=== PATIENT | female | born 1935 | race Caucasian/White ===

== ENCOUNTER 2017-07-03 09:25 | Observation (INO) ==
[2017-07-03] MEDS ORDERED: SALINE FLUSH 10ml SYRINGE IVF PRN (09:57)
--- NOTE | 2017-07-03 09:59 | Emergency Department Report ---
General Adult HPI - General Chief complaint: Fall Stated complaint: weakness,falls,dizzness,poss uti, Time Seen by Provider: 07/03/17 09:43 Source: patient, family Mode of arrival: ambulatory Limitations: no limitations - History of Present Illness HPI narrative: 81-year-old female presents to the emergency department with a chief complaint of multiple falls and generalized weakness. There is some question about whether or not the patient may have had some difficulty with her left lower extremity over the past several days. She denies any pain or discomfort. Patient is brought to the emergency department by her son Robb Reynolds who is requesting evaluation and treatment. Patient symptoms began almost 2 weeks ago, and have progressed with the generalized weakness since onset. She was at home when her symptoms began. Patient denies any current complaints. She does not note any exacerbating or remitting factors. Patient denies any numbness, tingling, weakness or sensory changes in her left lower extremity at this time. - Related Data Home Medications Medication Instructions Recorded Confirmed Levothyroxine Tab [Synthroid] 100 mcg PO ACB #0 04/22/13 07/03/17 Meloxicam 7.5 mg PO DAILY #0 08/28/15 07/03/17 Acetaminophen [Acetaminophen Extra 500 mg PO Q4H PRN #0 10/18/15 07/03/17 Strength] Mirabegron [Myrbetriq] 50 mg PO DAILY #0 08/04/16 07/03/17 Sertraline HCl 50 mg PO DAILY #0 08/04/16 07/03/17 Omeprazole 20 mg PO ACB #0 cap 11/25/16 07/03/17 Cefdinir 600 mg PO DAILY 07/03/17 07/03/17 Cranberry Fruit Extract [Cranberry] 200 mg PO DAILY 07/03/17 07/03/17 Cyanocobalamin (Vitamin B-12) 1,000 mcg PO DAILY 07/03/17 07/03/17 [Vitamin B-12] Fexofenadine [Nelly] 180 mg PO DAILY 07/03/17 07/03/17 Meclizine HCl 25 mg PO CHEW BID PRN 07/03/17 07/03/17 Multivit-Min/Iron/Folic/Rrm628 1 each PO DAILY 07/03/17 07/03/17 [Hair, Skin and Nails Tablet] Allergies Allergy/AdvReac Type Severity Reaction Status Date / Time No Known Allergies Allergy Verified 07/03/17 09:52 Review of Systems Constitutional: Reports: weakness (generalized). Denies: fever Eyes: Denies: eye pain, vision change ENT: Denies: ear pain, throat pain Cardiovascular: Denies: chest pain, palpitations Respiratory: Denies: cough, dyspnea Gastrointestinal: Denies: abdominal pain, nausea, vomiting, diarrhea Genitourinary: Denies: urgency, dysuria Musculoskeletal: Denies: back pain, arthralgia Integumentary: Denies: erythema, rash Neurological: Denies: headache, numbness Psychiatric: Denies: anxiety, depression Endocrine: Denies: fatigue, heat or cold intolerance Hematological/Lymphatic: Denies: easy bleeding, easy bruising Allergic/Immunologic: Denies: facial swelling, urticaria PFSH Patient Stated Medical History Peripheral Neuropathy Yes: peripheral neuropathy Cataracts Yes: removed Hx Urinary Tract Infection Yes: multiple, chronic Osteoarthritis Yes Shingles Yes Depression Yes: zoloft Surgical History: Hysterectomy, orthopedic surgery Family History: Reviewed and noncontributory. - Social History Smoking status: Never smoker Substance use type: does not use Alcohol intake frequency: does not drink Physical Exam - Limitations Limitations: no limitations - General General appearance: alert, in no apparent distress - Normal Exams: Head:: Normocephalic without trauma Eyes:: Pupils are PERRLA w/ EOMI, No scleral icterus, irritation, or foreign bodies noted ENMT:: No facial trauma, nasal exudates, pharyngeal erythema, or exudates are noted Dental: No fractured, loose, or missing teeth noted Neck:: Full range of motion, without adenopathy, JVD, bruits or thyromegaly (no midline tenderness or deformity of the cervical spine.) Chest/Respirations:: Clear all lira, with good airflow, and symmetry bilaterally Cardiovascular:: Regular rate and rhythm, without murmur or gallop, Pulses 2+ all extremities, capillary refill, <2 seconds all extremities Abdomen:: Bowel sounds positive, soft, non-tender, non-distended, no hepatosplenomegaly, masses or bruits noted Lymphatic:: No lymphadenopathy, or lymphedema noted Musculoskeletal:: No tenderness, or deformity noted, good range of motion, all extremities Integumentary:: No rashes, hives, or bruising noted, hair and nails, without abnormality Neurological:: Patient is alert, and oriented, cranial nerves, motor/sensory/ cerebellar, exams w/o gross deficits, to observation Psychiatric:: Patient exhibits, appropriate attention, emotion and affect Course Vital Signs Temperature 98.8 F 07/03/17 09:47 Pulse Rate 68 07/03/17 09:47 Respiratory Rate 20 07/03/17 09:47 Blood Pressure 181/77 H 07/03/17 09:47 Pulse Oximetry 98 07/03/17 09:47 Temperature 97.6 F 07/04/17 07:16 Pulse Rate 64 07/04/17 07:16 Respiratory Rate 10 07/04/17 07:16 Blood Pressure 150/71 H 07/04/17 07:16 Pulse Oximetry 96 07/04/17 07:16 Medical Decision Making - [facility] Narrative Medical decision making narrative: Labs/imaging were discussed in detail with the patient and family and questions are answered. Patient is given gentle IV hydration. Patient is given aspirin 324 mg by mouth times one. Patient does not demonstrate any obvious neurologic deficits. Patient's symptoms began several days ago. There is no obvious CVA. She is not a TPA candidate. Patient is admitted to the service of the hospitalist Dr. Owens in improved condition. Patient and family are in agreement with the current plan of management. No further orders from accepting physician who is in agreement with the current plan of management. It is confirmed with the family that the patient is no longer a patient of Dr. Anderson Gloria. - Differential Diagnosis UTI, Metabolic process, dehydration, CHI - Lab Data Result diagrams: 07/03/17 10:32 07/03/17 10:32 Lab Results 07/03/17 07/03/17 07/03/17 Range/Units 10:32 10:32 10:32 WBC 10.2 (4.5-11.0) T/MM3 RBC 4.60 (4.00-5.20) M/MM3 Hgb 14.4 (12-16) GM/DL Hct 41.1 (36-46) % MCV 89.3 (80-100) UM3 MCH 31.3 (26-34) UUG MCHC 35.0 (31-37) GM/DL RDW Std Deviation 39.0 (36.9-50.2) FL Plt Count 381 (130-400) T/MM3 MPV 9.3 L (9.4-12.4) UM3 Immature Gran % (Auto) 0.2 (0.0-0.5) % Neut % (Auto) 78.8 H (33-66) % Lymph % (Auto) 12.9 L (23-45) % [place] % (Auto) 7.2 (0-9.0) % Eos % (Auto) 0.3 (0-4) % Baso % (Auto) 0.6 (0-2) % Neut # 8.1 H (1.8-7.7) T/MM3 Lymph # 1.3 (1-4.8) T/MM3 [place] # 0.7 (0-0.8) T/MM3 Eos # 0.0 (0-0.5) T/MM3 Baso # 0.1 (0-0.2) T/MM3 Abs Immat Gran (auto) 0.02 (0.00-0.03) T/MM3 INR 1.02 (0.99-1.21) APTT 33.9 (24-36) SEC Turbidity < 20 (0-20) Sodium 131 L (134-144) MEQ/L Potassium 4.5 (3.6-5) MEQ/L Chloride 93 L (98-107) MEQ/L Carbon Dioxide 26 (22-30) MEQ/L Anion Gap 12 (5-15) MEQ/L BUN 11.0 (7-17) MG/DL Creatinine 0.9 (0.7-1.2) MG/DL GFR Calculation 60 BUN/Creatinine Ratio 12 (6-26) RATIO Glucose 91 (65-110) MG/DL Calculated Osmolality 252 L (261-280) MOSM/KG Calcium 9.4 (8.4-10.2) MG/DL Total Bilirubin 0.70 (0.20-1.30) MG/DL Icterus Index < 2 (0-7) AST 30 (14-36) U/L ALT 33 (9-52) U/L Alkaline Phosphatase 83 (38-126) U/L Troponin I < 0.012 (0-0.12) ng/ml Total Protein 7.5 (6.3-8.2) G/DL Albumin 4.4 (3.5-5.0) G/DL Globulin 3.1 (2.4-3.6) G/DL Albumin/Globulin Ratio 1.4 (1.1-2.2) RATIO Specimen Hemolysis < 15 (0-25) Ur Collection Type Urine Color (YELLOW) Urine Clarity Urine pH (5.0-8.0) Ur Specific [place] (1.015-1.025) Urine Protein (NEGATIVE) Urine Glucose (UA) (NEGATIVE) Urine Ketones (NEGATIVE) Urine Occult Blood (NEGATIVE) Urine Nitrate (NEGATIVE) Urine Bilirubin (NEGATIVE) Urine Urobilinogen (NORMAL) EU/DL Ur Leukocyte Esterase (NEGATIVE) Urinalysis Comment 07/03/17 Range/Units 12:27 WBC (4.5-11.0) T/MM3 RBC (4.00-5.20) M/MM3 Hgb (12-16) GM/DL Hct (36-46) % MCV (80-100) UM3 MCH (26-34) UUG MCHC (31-37) GM/DL RDW Std Deviation (36.9-50.2) FL Plt Count (130-400) T/MM3 MPV (9.4-12.4) UM3 Immature Gran % (Auto) (0.0-0.5) % Neut % (Auto) (33-66) % Lymph % (Auto) (23-45) % [place] % (Auto) (0-9.0) % Eos % (Auto) (0-4) % Baso % (Auto) (0-2) % Neut # (1.8-7.7) T/MM3 Lymph # (1-4.8) T/MM3 [place] # (0-0.8) T/MM3 Eos # (0-0.5) T/MM3 Baso # (0-0.2) T/MM3 Abs Immat Gran (auto) (0.00-0.03) T/MM3 INR (0.99-1.21) APTT (24-36) SEC Turbidity (0-20) Sodium (134-144) MEQ/L Potassium (3.6-5) MEQ/L Chloride (98-107) MEQ/L Carbon Dioxide (22-30) MEQ/L Anion Gap (5-15) MEQ/L BUN (7-17) MG/DL Creatinine (0.7-1.2) MG/DL GFR Calculation BUN/Creatinine Ratio (6-26) RATIO Glucose (65-110) MG/DL Calculated Osmolality (261-280) MOSM/KG Calcium (8.4-10.2) MG/DL Total Bilirubin (0.20-1.30) MG/DL Icterus Index (0-7) AST (14-36) U/L ALT (9-52) U/L Alkaline Phosphatase (38-126) U/L Troponin I (0-0.12) ng/ml Total Protein (6.3-8.2) G/DL Albumin (3.5-5.0) G/DL Globulin (2.4-3.6) G/DL Albumin/Globulin Ratio (1.1-2.2) RATIO Specimen Hemolysis (0-25) Ur Collection Type Urine, catheter Urine Color Yellow (YELLOW) Urine Clarity Clear Urine pH 6.0 (5.0-8.0) Ur Specific [place] <=1.005 L (1.015-1.025) Urine Protein Negative (NEGATIVE) Urine Glucose (UA) Negative (NEGATIVE) Urine Ketones Negative (NEGATIVE) Urine Occult Blood Negative (NEGATIVE) Urine Nitrate Negative (NEGATIVE) Urine Bilirubin Negative (NEGATIVE) Urine Urobilinogen 0.2 (NORMAL) EU/DL Ur Leukocyte Esterase Negative (NEGATIVE) Urinalysis Comment Microscopic not ind. - Radiology Data Chest x-ray: No acute processes. CT head/cervical spine: No acute processes other than potential acute on chronic sinus disease. - EKG Data EKG #1 EKG results narrative: Sinus rhythm. 66 bpm. No STEMI. Disposition Clinical Impression: WEAKNESS Disposition: 02 To [facility] Condition: Improved Time of Disposition: 12:20 (Admit: Dr. Owens.) - Seen By: physician
--- NOTE | 2017-07-03 10:32 | XRay Report ---
Indication: cough Procedure: XR chest 1V: Encounter: Initial Comparison: 08/04/2016 Technique: A single portable AP chest radiograph was obtained. Findings: Lungs and airways: Normal lung volumes. No focal airspace consolidation. Normal pulmonary vasculature. Pleura: No pleural effusion or pneumothorax. Heart and mediastinum: Aortic atherosclerosis. The cardiomediastinal silhouette and great vessels are otherwise within normal limits. Osseous structures and soft tissues: No acute osseous abnormality is seen. Degenerative arthrosis of the shoulders. Impression: No acute cardiopulmonary process. .
--- NOTE | 2017-07-03 10:34 | CT Scan Report ---
EXAM: CT head/brain wo con DATE: 07/03/2017 12:00 AM ENCOUNTER: Initial INDICATION: fall / dizzy COMPARISON: None available. TECHNIQUE: CT imaging of the head was obtained without intravenous contrast. Axial reformatted images were performed. The current CT scan was performed using radiation dose-reduction techniques. FINDINGS: Ill defined hypoattenuations within the periventricular deep white matter, a nonspecific finding, however most suggestive of chronic small vessel ischemic disease. The graves-white matter junction is otherwise normal. No intra or extra-axial mass or hemorrhage is identified. There is no midline shift. Symmetric prominence of the ventricles and cerebral sulci consistent with age appropriate cerebral volume loss. The ventricles are otherwise normal in shape and morphology. The basilar cisterns are patent. No acute osseous or soft tissue abnormality. Partially visualized right maxillary sinus disease with air-fluid level and a chronic inspissated mucous retention cyst. The visualized paranasal sinuses are normal. The visualized portions of the orbits and globes are normal. The mastoid air cells are clear. IMPRESSION: 1. No acute intracranial process identified by CT. 2. Age appropriate cerebral volume loss and mild chronic small vessel ischemic disease. 3. Partially visualized right maxillary sinus disease with air-fluid level and a chronic inspissated mucous retention cyst raising consideration for acute on chronic sinusitis. .
--- NOTE | 2017-07-03 10:36 | CT Scan Report ---
Indication: Pain Procedure: CT cervical spine wo con: Encounter: Initial Technique: CT imaging of the cervical spine was obtained without intravenous contrast. Axial, coronal, and sagittal reformatted images were performed. Automated Exposure Control and Iterative Reconstruction dose reducing techniques were utilized. Comparison: None Findings: No acute fracture. The normal cervical lordosis is maintained. No significant spondylolisthesis. No suspicious osteolytic or osteoblastic lesions. Multilevel degenerative disc disease, facet arthropathy, and uncovertebral hypertrophy resulting in mild multilevel neural foraminal narrowing without significant spinal canal stenosis appreciated by CT. No prevertebral soft tissue thickening. No other acute paravertebral soft tissue abnormality. Carotid atherosclerotic calcifications noted. The visualized airway appears widely patent. The visualized lung apices are clear. The visualized intracranial structures appear normal. Impression: 1. No acute fracture or malalignment of the cervical spine. 2. Multiple level degenerative spondylosis resulting in mild multilevel neural foraminal narrowing without significant spinal canal stenosis appreciated by CT. .
[2017-07-03] MEDS ORDERED: NS 1,000 ML IV ONE (12:44)
[2017-07-03] MEDS ORDERED: ASPIRIN 81 MG CHEWABLE TABLET PO ONE (13:04)
--- NOTE | 2017-07-03 14:05 | History & Physical Report ---
<Dayana Palomo V - Last Filed: 07/03/17 13:39> History of Present Illness Date: 07/03/17 Chief complaint: weakness, falls, UTI HPI: Mrs Reynolds is a pleasant 81-year-old female brought to the emergency room today for evaluation of weakness, recent falls, and overall decline. She has had several episodes of falling. The 1st being on June 20. Then on June 29. She lost her balance while trying to feed her dog and fell. Family noted having some left foot drop that is worse from her baseline. Other evaluation in the emergency room was completed. WBC count was normal at 10.2, hemoglobin 14.4, hematocrit 41.1, platelet count 381. Sodium is slightly low at 131, potassium 4.5, BUN 11, creatinine 0.9, glucose 91. Troponin is negative. Urinalysis is negative. The pressure was noted to be elevated on arrival to the emergency room at 181/ 77. Is it reported that she was diagnosed with urinary tract infection and was started on cefdinir on 06/[address] Box. She did miss several doses that she got confused regarding her pill boxes. She did resume Cefdinir over the last 3 days. She is seen today on initial examination. She is alert, oriented and pleasant. No noted motor or neurologic deficits on examination. She reports of having ongoing dizziness and has been taking meclizine for symptoms. Review of Systems Comprehensive ROS: completed and no additional positive findings except those as stated - Constitutional Constitutional: Present: fatigue, weakness - Neurological Neurological: Present: dizziness, weakness (generalized) PFSH Osteoarthritis Chronic back pain Hypothyroidism Hypercholesterolemia History of anemia Surgical History: Hysterectomy. Total knee arthroplasty. Left hip hemiarthplasty-07/2016. Dr. Ruano Family History: Noncontributory - Social History Smoking status: Current every day smoker Substance use type: does not use Alcohol intake frequency: does not drink Housing: house Current occupational status: retired Current residence: Apartment/Private Home Social history: PCP Dr Box Medications Home Medications Medication Instructions Recorded Confirmed Type Levothyroxine Tab [Synthroid] 100 mcg PO ACB #0 04/22/13 07/03/17 History Meloxicam 7.5 mg PO DAILY #0 08/28/15 07/03/17 History Acetaminophen [Acetaminophen Extra 500 mg PO Q4H PRN #0 10/18/15 07/03/17 History Strength] Mirabegron [Myrbetriq] 50 mg PO DAILY #0 08/04/16 07/03/17 History Sertraline HCl 50 mg PO DAILY #0 08/04/16 07/03/17 History Omeprazole 20 mg PO ACB #0 cap 11/25/16 07/03/17 History Cefdinir 600 mg PO DAILY 07/03/17 07/03/17 History Cranberry Fruit Extract [Cranberry] 200 mg PO DAILY 07/03/17 07/03/17 History Cyanocobalamin (Vitamin B-12) 1,000 mcg PO DAILY 07/03/17 07/03/17 History [Vitamin B-12] Fexofenadine [Nelly] 180 mg PO DAILY 07/03/17 07/03/17 History Meclizine HCl 25 mg PO CHEW BID PRN 07/03/17 07/03/17 History Multivit-Min/Iron/Folic/Vfa681 1 each PO DAILY 07/03/17 07/03/17 History [Hair, Skin and Nails Tablet] Allergies Allergy/AdvReac Type Severity Reaction Status Date / Time No Known Allergies Allergy Verified 07/03/17 09:52 Exam Vital Signs: Temperature 98.8 F 07/03/17 09:47 Pulse Rate 68 07/03/17 09:47 Respiratory Rate 20 07/03/17 09:47 Blood Pressure 181/77 H 07/03/17 09:47 Pulse Oximetry 98 07/03/17 09:47 - Constitutional Present: no acute distress, well nourished, well developed - Routine HEENT Exam Eye: Present: EOMI, PERRL ENT: Present: mucous membranes moist, dentition normal - Routine Neck Exam Present: full ROM - Routine Respiratory Exam Present: CTA bilaterally. Absent: wheezes - Routine Cardiovascular Exam Present: RRR, S1, S2, no murmur. Absent: murmur - Routine Abdominal Exam Present: soft, normoactive bowel sounds, non distended. Absent: tenderness - Routine Extremities Exam Present: no edema, full ROM, pulses intact, normal capillary refill - Routine Back/Spine/Pelvis Exam Back/Spine: Present: full ROM - Routine Skin Exam Present: intact, dry, warm - Routine Neurological Exam Present: alert, oriented X3, CN II-XII intact, moving all extremities, vision grossly intact, hearing grossly intact, normal speech. Absent: facial asymmetry - Routine Psychiatric Exam Present: normal affect Results - Labs CBC & Chem 7: 07/03/17 10:32 07/03/17 10:32 Assessment and Plan (1) Weakness Current visit: Yes Status: Acute (2) History of recent fall Current visit: Yes Status: Acute Resuscitation Status: Do Not Resuscitate Assessment and Plan: Impression General weakness Multiple falls Hyponatremia-present on admission, 131 Current treatment for urinary tract infection Hypothyroidism Osteoarthritis Plan Admit patient to outpatient observation under care of Dr. Owens for generalized weakness, dizziness with recent falls. Patient has been under the outpatient treatment for urinary tract infection. Urinalysis is negative today. However, she continues on cefdinir. CT head performed today reveals no intracranial abnormality or hemorrhage. There was some questionable sinusitis. CT cervical spine shows multiple level of degenerative spinal canal stenosis. Will obtain MRI of head and C-spine. Possible consultation with Dr Hairston given worsening left foot drop Normal saline at 100 ML per hour for ongoing hydration given hyponatremia Consultation placed to PT and OT for evaluation. Spoke with patient and son, patient may require more assistance following hospitalization, i.e. rehabilitation versus skilled prior to returning home independently Recheck CBC and BMP tomorrow morning to follow blood counts, renal function and electrolytes. Will discuss further orders and plan of care with attending, Dr. Owens. At time of discharge medical care will return to her primary care provider, Dr. Box Patient does verbalize her wish to be a do not resuscitate and this order is written Hospital Course Summary Disclaimer: The visit summary below is not to be considered part of the above Progress Note. Hospital Course: 07/03/17 - Impression General weakness Multiple falls Hyponatremia-present on admission, 131 Current treatment for urinary tract infection Hypothyroidism Osteoarthritis Plan Admit patient to outpatient observation under care of Dr. Owens for generalized weakness, dizziness with recent falls. Patient has been under the outpatient treatment for urinary tract infection. Urinalysis is negative today. However, she continues on cefdinir. CT head performed today reveals no intracranial abnormality or hemorrhage. There was some questionable sinusitis. CT cervical spine shows multiple level of degenerative spinal canal stenosis. Will obtain MRI of head and C-spine. Possible consultation with Dr Hairston given worsening left foot drop Normal saline at 100 ML per hour for ongoing hydration given hyponatremia Consultation placed to PT and OT for evaluation. Spoke with patient and son, patient may require more assistance following hospitalization, i.e. rehabilitation versus skilled prior to returning home independently Recheck CBC and BMP tomorrow morning to follow blood counts, renal function and electrolytes. Will discuss further orders and plan of care with attending, Dr. Owens. At time of discharge medical care will return to her primary care provider, Dr. Box Patient does verbalize her wish to be a do not resuscitate and this order is written <Janes Owens - Last Filed: 07/03/17 17:41> History of Present Illness Date: 07/03/17 [facility] Patient Stated Medical History Peripheral Neuropathy Yes: peripheral neuropathy Cataracts Yes: removed Hx Urinary Tract Infection Yes: multiple, chronic Osteoarthritis Yes Shingles Yes Depression Yes: zoloft Exam Vital Signs: Temperature 98.0 F 07/03/17 15:54 Pulse Rate 67 07/03/17 16:00 Respiratory Rate 18 07/03/17 15:54 Blood Pressure 140/66 H 07/03/17 15:54 Pulse Oximetry 97 07/03/17 15:54 Height/Weight/BMI: Height 5 ft 8 in Weight 60.8 kg Body Mass Index 20.3 Results - Labs CBC & Chem 7: 07/03/17 10:32 07/03/17 10:32 Assessment and Plan (1) Weakness Current visit: Yes Status: Acute (2) History of recent fall Current visit: Yes Status: Acute DVT Prophylaxis: SCD's GI Prophylaxis: other Assessment and Plan: Above pt was seen and examined in the ED with Dayana. Pt is a 81YO female who was brought due to a recent falls. CT brain ".......................... IMPRESSION: 1. No acute intracranial process identified by CT. 2. Age appropriate cerebral volume loss and mild chronic small vessel ischemic disease. 3. Partially visualized right maxillary sinus disease with air-fluid level and a chronic inspissated mucous retention cyst raising consideration for acute on chronic sinusitis. ................................" Pt had mild hyponatremia. On PE NC/AT Pt is very thin Chest - RRR - fair air entry bilaterally Abd - Soft NT/ND Ext - no edema. Neuro - Grossly non focal. Labs Na a bit low - pt has been on a SSRI. DIAGNOSIS 1) Generalized weakness, with recent multiple falls. Pt also describes what could be a component of BPPV. If pt has no orthostasis, and once Na is corrected symptoms continue (and there is no arrhythmia) will consult PT for otolith repositioning maneuver. - Hyponatremia-present on admission, 131 - Hyponatremia increases the risk of falls and fractures even if mild - must try to correct. - Check W/U for low Na - (TSH, Cortisol, Urine and plasma Osm, Uric acid - CXR) - May benefit from Stopping SSRI - since these are known to cause hyponatremia. - Will hydrate with NS first. 2) Hypovolemic hyponatremia. Once volemia is restored may consider fluid restriction if low Na persists. - Hydrate with NS - Check EKG. ' 3) Hypetension, currently pure systolic, will check for orthostasis and if persistent start treatment. - EKG does not suggest LVH - SBP is high, but HCTZ can not be used, since it causes low Na. - May consider Norvasc if SBP continues to be high AND pt has no orthostasis. 4) Recent UTI, overactive bladder or Mirabegron. - Pt on Cefdinir will continue. - UA shows no evidence of UTI. - Reduce dose of Mirabegron to 25mg/day as this may cause HTN. PREVENTION DVT - SCD PUD - PPI. - Time spent with patient 25 - 35 minutes Hospital Course Summary Disclaimer: The visit summary below is not to be considered part of the above Progress Note.
[2017-07-03 14:17] VITALS: BMI 20.3
[2017-07-03] MEDS ORDERED: ACETAMINOPHEN 500 MG TABLET PO PRN (14:18)
[2017-07-03] MEDS: NS 1,000 ML IV SCH (14:31)
--- NOTE | 2017-07-03 16:57 | Magnetic Resonance Report ---
Indication: Worsening left foot drop with history of falls, evaluate for CVA PROCEDURE: MR head/brain wo con: Encounter: Initial Comparisons: Head CT of the same day Technique: Multiplanar, multisequence, MR imaging of the head without contrast was acquired. FINDINGS: No restricted diffusion is seen to suggest recent ischemic infarction. T2/FLAIR hyperintensities within the deep white matter, a nonspecific finding, however most commonly related to chronic small vessel ischemic disease. The normal graves-white matter differentiation is maintained. No intra-axial or extra-axial mass or hemorrhage seen. No mass effect or midline shift. No abnormal postcontrast enhancement. Symmetric prominence of the ventricles and cerebral sulci most consistent with age-related generalized cerebral volume loss. The ventricles are otherwise normal in shape and configuration without evidence of hydrocephalus. The basilar cisterns are patent. Normal flow void seen within the intracranial arterial and venous structures indicating patency. Redemonstration of right maxillary sinus disease. The remaining paranasal sinuses and mastoid air cells are well-aerated. The orbits and globes appear normal. IMPRESSION: 1. No evidence of recent ischemic infarction or other acute abnormalities of the brain by MRI. 2. Age-related generalized cerebral volume loss and chronic small vessel ischemic disease. 3. Redemonstration of right maxillary sinus disease. .
[2017-07-04] MEDS: NS 1,000 ML IV SCH ×2 (05:42→15:23)
[2017-07-04] MEDS: **POM**LEVOTHYROXINE 100 MCG TABLET PO SCH (06:31)
[2017-07-04] MEDS: OMEPRAZOLE 20 MG PO SCH (06:32)
[2017-07-04] MEDS ORDERED: MIRABEGRON 50 MG PO SCH (09:00)
[2017-07-04] MEDS ORDERED: CEFDINIR 300 MG PO SCH (09:00)
[2017-07-04] MEDS: MELOXICAM 7.5 MG PO SCH (10:05)
[2017-07-04] MEDS: FEXOFENADINE 180 MG PO SCH (10:06)
[2017-07-04] MEDS: CEFDINIR 300 MG CAPSULE PO SCH (10:09)
[2017-07-04] MEDS: MIRABEGRON 25mg TABLET PO SCH (10:09)
[2017-07-04] MEDS: SERTRALINE 50 MG PO SCH (10:10)
[2017-07-04] MEDS: MINERAL PO SCH (10:11)
[2017-07-04] MEDS: HAIR PO SCH (10:11)
[2017-07-04] MEDS: MULTIVITAMIN PO SCH (10:11)
[2017-07-04] MEDS: SKIN PO SCH (10:11)
[2017-07-04] MEDS: [UNRECOGNIZED DRUG - OTHER] PO SCH (10:11)
--- NOTE | 2017-07-04 11:33 | Progress Note ---
Subjective: States she is feeling better and stronger today, in good spirits. Objective Vital signs: Temperature 97.6 F 07/04/17 07:16 Pulse Rate 64 07/04/17 07:16 Respiratory Rate 10 07/04/17 07:16 Blood Pressure 150/71 H 07/04/17 07:16 Pulse Oximetry 96 07/04/17 07:16 Rhythm: Normal Sinus Rhythm Height/Weight/BMI: Height 5 ft 8 in Weight 91.5 kg Body Mass Index 20.3 - Constitutional Present: no acute distress, well nourished - Routine HEENT Exam Head: Present: normocephalic, atraumatic Eye: Present: EOMI, PERRL - Routine Respiratory Exam Present: CTA bilaterally - Routine Cardiovascular Exam Present: RRR, S1, S2 - Routine Abdominal Exam Present: soft, non distended, non tender - Routine Extremities Exam Absent: cyanosis, clubbing, edema - Routine Skin Exam Comments: Purpura seniils of the forearms. - Routine Neurological Exam Present: alert, oriented X3, CN II-XII intact - Routine Psychiatric Exam Present: normal affect, cooperative, good insight, good judgment Results - Labs CBC & Chem 7: 07/04/17 11:22 07/04/17 10:00 Assessment and Plan (1) Weakness Current visit: Yes Status: Resolved (2) History of recent fall Current visit: Yes Status: Acute DVT Prophylaxis: SCD's GI Prophylaxis: other Resuscitation Status: Do Not Resuscitate Assessment and Plan: This is a 81 YO female that comes with recent falls and was found to have low Na on admission. This corrected rapidly with IVF and did not require fluid restriction. DIAGNOSIS 1) Generalized weakness, with recent multiple falls. Pt also describes what could be a component of BPPV. She is improved. Awaiting neurology evaluation. - Hyponatremia-present on admission, 131 - Corrected on 07/04 (Na = 140) - Check W/U for low Na - (TSH, Cortisol, Urine and plasma Osm, Uric acid) PENDING. 2) Hypovolemic hyponatremia. Once volemia is restored may consider fluid restriction if low Na persists. - Improved. 3) Hypetension, currently pure systolic. - EKG does not suggest LVH - SBP is high, but HCTZ can not be used, since it causes low Na. - May consider Norvasc if SBP continues to be high AND pt has no orthostasis. - If SBP remains in the AM - will consider adding norvasc. 4) Recent UTI, overactive bladder or Mirabegron. - Pt on Cefdinir will continue. - UA shows no evidence of UTI. - Reduced dose of Mirabegron to 25mg/day as this may cause HTN. 5) H.O Lumbar stenosis - - Will recheck MRI lumbar spine. PREVENTION DVT - SCD PUD - PPI. Sepsis Assessment - Evaluation Sepsis screening result: No Definite Risk Hospital Course Summary Disclaimer: The visit summary below is not to be considered part of the above Progress Note. Hospital Course: 07/03/17 - Impression General weakness Multiple falls Hyponatremia-present on admission, 131 Current treatment for urinary tract infection Hypothyroidism Osteoarthritis Plan Admit patient to outpatient observation under care of Dr. Owens for generalized weakness, dizziness with recent falls. Patient has been under the outpatient treatment for urinary tract infection. Urinalysis is negative today. However, she continues on cefdinir. CT head performed today reveals no intracranial abnormality or hemorrhage. There was some questionable sinusitis. CT cervical spine shows multiple level of degenerative spinal canal stenosis. Will obtain MRI of head and C-spine. Possible consultation with Dr Hairston given worsening left foot drop Normal saline at 100 ML per hour for ongoing hydration given hyponatremia Consultation placed to PT and OT for evaluation. Spoke with patient and son, patient may require more assistance following hospitalization, i.e. rehabilitation versus skilled prior to returning home independently Recheck CBC and BMP tomorrow morning to follow blood counts, renal function and electrolytes. Will discuss further orders and plan of care with attending, Dr. Owens. At time of discharge medical care will return to her primary care provider, Dr. Box Patient does verbalize her wish to be a do not resuscitate and this order is written
--- NOTE | 2017-07-04 11:42 | Magnetic Resonance Report ---
Indication: weakness, falls, spinal stenosis PROCEDURE: MR cervical spine wo con: Encounter: Initial Comparison: CT cervical spine dated July 03, 2017 Technique: Multiplanar multisequence MR imaging of the cervical spine was performed without contrast. Findings: Alignment of the cervical spine is stable from the recent comparison study. There is mild inferior endplate deformity at C7 without acute edema suggesting an old Schmorl's node or mild compression fracture. No acute edema or acute fracture appreciated. The cervical and visualized upper thoracic spinal cord signal intensity is normal. The paraspinal soft tissues are unremarkable. Segmental analysis: C2-C3: Normal C3-C4: Small central disk osteophyte complex slightly effacing the thecal sac with mild central canal narrowing. Degenerative uncovertebral and facet changes causing mild bilateral foraminal stenosis. C5-C6: Small central disk protrusion slightly effacing the thecal sac without central canal stenosis. No neural foraminal stenosis. C6-C7: No significant disk herniation, central canal or neural foraminal stenosis. C7-T1: No focal disk herniation or central canal stenosis. Degenerative uncovertebral change without foraminal stenosis. Impression: No central canal stenosis. Mild foraminal narrowing at C3-C4. .
--- NOTE | 2017-07-04 13:04 | Magnetic Resonance Report ---
Indication: lumbar stenosis left foot drop PROCEDURE: MR lumbar spine wo con: Encounter: Initial Comparison: Radiograph dated May 16, 2016 and MRI lumbar spine dated January 13, 2014 Technique: Multiplanar multisequence MR imaging of the lumbar spine was performed without contrast. Findings: Alignment of the lumbar spine is stable. Old superior endplate deformity of L1 and inferior endplate deformity of L2. Multiple Schmorl's nodes. Degenerative endplate change at L4-L5. Conus medullaris terminates normally at L1. Chronic mild superior endplate deformity of T11. New edema within the S3 segment with a T1 hypointense fracture line best seen on sagittal image #11. No additional acute fracture seen. The paraspinal soft tissues are unremarkable for age. Segmental analysis: L1-L2: Mild disk bulging and degenerative facet change contributing to mild central canal stenosis. Mild left foraminal narrowing. No significant right foraminal stenosis. L2-L3: Central disk protrusion with degenerative facet disease causing moderate central canal stenosis. Mild left foraminal narrowing. No right foraminal stenosis. L3-L4: Disk osteophyte complex with degenerative facet disease causing mild central canal stenosis. Moderate right neural foraminal stenosis. No left foraminal narrowing. L4-L5: Disk height loss with a small bulge and degenerative facet disease causing mild central canal stenosis. Moderate right and mild left neural foraminal stenosis. L5-S1: Degenerative facet hypertrophy. No focal disk herniation or central canal stenosis. Mild right and moderate left neural foraminal stenosis. Overall the degenerative changes are very similar to the comparison study. Impression: 1. Acute nondisplaced fracture of S3. 2. Otherwise stable degenerative disk and facet disease as detailed above. .
[2017-07-04] MEDS: POLYETHYL GLYCOL 3350 17gm PACKET PO PRN (22:44)
[2017-07-05] MEDS: NS 1,000 ML IV SCH ×2 (02:30→13:07)
[2017-07-05] MEDS: OMEPRAZOLE 20 MG PO SCH (06:46)
[2017-07-05] MEDS: **POM**LEVOTHYROXINE 100 MCG TABLET PO SCH (06:46)
[2017-07-05 07:24] VITALS: TEMP 97.5
[2017-07-05] MEDS: MELOXICAM 7.5 MG PO SCH (09:00)
[2017-07-05] MEDS: FEXOFENADINE 180 MG PO SCH (09:00)
[2017-07-05] MEDS: CEFDINIR 300 MG CAPSULE PO SCH (09:01)
[2017-07-05] MEDS: MIRABEGRON 25mg TABLET PO SCH (09:01)
[2017-07-05] MEDS: [UNRECOGNIZED DRUG - OTHER] PO SCH (09:01)
[2017-07-05] MEDS: HAIR PO SCH (09:01)
[2017-07-05] MEDS: MINERAL PO SCH (09:01)
[2017-07-05] MEDS: SKIN PO SCH (09:01)
[2017-07-05] MEDS: MULTIVITAMIN PO SCH (09:01)
[2017-07-05] MEDS: SERTRALINE 50 MG PO SCH (09:01)
[2017-07-05] MEDS ORDERED: MECLIZINE 25 MG TABLET PO PRN ×2 (09:11)
[2017-07-05] MEDS: POLYETHYL GLYCOL 3350 17gm PACKET PO PRN (09:16)
[2017-07-05] MEDS ORDERED: MECLIZINE 12.5 MG TABLET PO PRN (11:01)
[2017-07-05] MEDS ORDERED: SALINE FLUSH 10ml SYRINGE ONE (11:07)
--- NOTE | 2017-07-05 11:18 | Progress Note ---
Subjective: Pt reports persistent dizzy spells specially when she moves her head. Otherwise is doing fairly well. Objective Vital signs: Temperature 97.5 F 07/05/17 07:22 Pulse Rate 61 07/05/17 07:22 Respiratory Rate 12 07/05/17 07:22 Blood Pressure 156/70 H 07/05/17 07:22 Pulse Oximetry 97 07/05/17 07:22 Rhythm: Normal Sinus Rhythm Height/Weight/BMI: Height 5 ft 8 in Weight 64.2 kg Body Mass Index 20.3 - Constitutional Present: no acute distress, thin - Routine HEENT Exam Head: Present: normocephalic, atraumatic Eye: Present: EOMI, PERRL - Routine Respiratory Exam Present: CTA bilaterally - Routine Cardiovascular Exam Present: RRR - Routine Abdominal Exam Present: soft, non distended, non tender - Routine Extremities Exam Absent: cyanosis, clubbing, edema - Routine Neurological Exam Present: alert, oriented X3, CN II-XII intact - Routine Psychiatric Exam Present: normal affect, cooperative, good insight, good judgment Results - Labs CBC & Chem 7: 07/05/17 09:16 07/05/17 09:16 Assessment and Plan (1) Weakness Current visit: Yes Status: Resolved (2) History of recent fall Current visit: Yes Status: Acute (3) Vertebral fracture Current visit: Yes Status: Acute (4) Vertebral fracture Current visit: Yes Status: Acute 07/05/17 11:17 S6 acute fracture per MRI report. DVT Prophylaxis: SCD's GI Prophylaxis: other Resuscitation Status: Do Not Resuscitate Assessment and Plan: This is a 81 YO female that comes with recent falls and was found to have low Na on admission. This corrected rapidly with IVF and did not require fluid restriction. She had a MRI of her Lumbar spine that showed a NEW S6 compression fracture. A Bone scan has been ordered. DIAGNOSIS 1) S6 ACUTE FRACTURE - WITH A RECENT FALL & GENERALIZED WEAKNESS. Pt also describes what could be a component of BPPV. She is improved. Pt was seen by Neurologist (Dr Hairston - staff neurologist) - who recommended adjusting her Meclizine and for her to go to rehab. - Check a Bone scan to R/O metastatic disease and other acute fractures. - Per neurology recommendation pt could be going to IRU or rehab soon. - Will change Meclizine to 12.5 mg PO Q6H 2) Hypovolemic hyponatremia. resolved. - Hyponatremia-present on admission, 131 - Corrected on 07/04 (Na = 140), without taking her off her SSRI. - AM cortisol normal - TSH normal 3) Hypertension, currently pure systolic. - EKG does not suggest LVH - May consider Norvasc if SBP continues to be high AND pt has no orthostasis ( This can be done as outpatient - ideally after a 24 hr monitoring of her BP). 4) Recent UTI, overactive bladder or Mirabegron. - Pt on Cefdinir, today is the last day. - Reduced dose of Mirabegron to 25mg/day as this may cause HTN. Disposition - pt may go to rehab soon. PREVENTION DVT - SCD PUD - PPI. - Time spent with patient less than 15 minutes Sepsis Assessment - Evaluation Sepsis screening result: No Definite Risk Hospital Course Summary Disclaimer: The visit summary below is not to be considered part of the above Progress Note. Hospital Course: 07/03/17 - Impression General weakness Multiple falls Hyponatremia-present on admission, 131 Current treatment for urinary tract infection Hypothyroidism Osteoarthritis Plan Admit patient to outpatient observation under care of Dr. Owens for generalized weakness, dizziness with recent falls. Patient has been under the outpatient treatment for urinary tract infection. Urinalysis is negative today. However, she continues on cefdinir. CT head performed today reveals no intracranial abnormality or hemorrhage. There was some questionable sinusitis. CT cervical spine shows multiple level of degenerative spinal canal stenosis. Will obtain MRI of head and C-spine. Possible consultation with Dr Hairston given worsening left foot drop Normal saline at 100 ML per hour for ongoing hydration given hyponatremia Consultation placed to PT and OT for evaluation. Spoke with patient and son, patient may require more assistance following hospitalization, i.e. rehabilitation versus skilled prior to returning home independently Recheck CBC and BMP tomorrow morning to follow blood counts, renal function and electrolytes. Will discuss further orders and plan of care with attending, Dr. Owens. At time of discharge medical care will return to her primary care provider, Dr. Box Patient does verbalize her wish to be a do not resuscitate and this order is written
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
--- NOTE | 2017-07-05 15:09 | Nuclear Medicine Report ---
Indication: S3 Acute fracture PROCEDURE: NM bone scan whole body: Encounter: Initial Comparison: MRI lumbar spine dated July 04, 2017 Technique: 27.2 mCi of Tc-99m MDP was administered intravenously. Anterior and posterior planar whole-body and spot images were obtained. FINDINGS: The scan demonstrates the expected normal biodistribution for the radiotracer. There is probable degenerative uptake seen in the shoulders and right hip. Photopenic defect from left hip and right knee replacements. There is no abnormal radiotracer uptake to suggest bony metastasis. The known S3 fracture shows increased FDG uptake as expected, best appreciated on the lateral projection images. There is also uptake within the right posterior and lateral 10th and 11th ribs, also probably due to recent fractures. Degenerative uptake in the left ankle. IMPRESSION: Posttraumatic uptake in the right 10th and 11th ribs and the sacrum. .
--- NOTE | 2017-07-05 15:10 | Discharge Instructions ---
<Sari Moreno - Last Filed: 07/05/17 15:05> Discharge Plan - Med Rec/Dispo [facility] Instructions: Hyponatremia (GEN), Fall Prevention (GEN) Prescriptions: New Meclizine [Antivert] 12.5 mg PO Q6H PRN #30 tablet PRN Reason: Dizziness Continue Meloxicam 7.5 mg PO DAILY #0 Mirabegron [Myrbetriq] 50 mg PO DAILY #0 Cranberry Fruit Extract [Cranberry] 200 mg PO DAILY Cyanocobalamin (Vitamin B-12) [Vitamin B-12] 1,000 mcg PO DAILY Levothyroxine Tab [Synthroid] 100 mcg PO ACB #0 Acetaminophen [Acetaminophen Extra Strength] 500 mg PO Q4H PRN #0 PRN Reason: PAIN Sertraline HCl 50 mg PO DAILY #0 Omeprazole 20 mg PO ACB #0 cap Fexofenadine [Nelly] 180 mg PO DAILY Meclizine HCl 25 mg PO CHEW BID PRN PRN Reason: Dizziness Discontinued Cefdinir 600 mg PO DAILY No Action Multivit-Min/Iron/Folic/Gzz453 [Hair, Skin and Nails Tablet] 1 each PO DAILY - Disposition 62 To [facility] <Janes Owens - Last Filed: 07/05/17 15:44> Discharge Plan - Med Rec/Dispo
[2017-07-05 15:24] VITALS: RESP 17; O2SAT 98
[2017-07-05 15:26] VITALS: BP 153/70; PULSE 70
--- NOTE | 2017-07-05 15:44 | Discharge Summary ---
Discharge Information Date of admission: 07/03/17 13:33 Anticipated date of discharge: 07/05/17 Attending Physician: Janes Owens MD Primary care physician: Dee Box MD Consults: 07/04/17 IRU Screening [Inpatient Rehab Screening] [CONS] Routine 07/06/17 08:53 Physician Consult [CONS] Routine Consulting Provider: Ankita Hairston Reason For Exam: falls Ordering Provider has Notified Buffer Chrome: Yes - Discharge Diagnosis (1) Weakness Status: Resolved (2) History of recent fall Status: Acute (3) Vertebral fracture Status: Acute (4) Vertebral fracture Status: Acute - Laboratory Labs: 07/05/17 09:16 07/05/17 09:16 History of Present Illness HPI: Mrs Reynolds is a pleasant 81-year-old female brought to the emergency room today for evaluation of weakness, recent falls, and overall decline. She has had several episodes of falling. The 1st being on June 20. Then on June 29. She lost her balance while trying to feed her dog and fell. Family noted having some left foot drop that is worse from her baseline. Other evaluation in the emergency room was completed. WBC count was normal at 10.2, hemoglobin 14.4, hematocrit 41.1, platelet count 381. Sodium is slightly low at 131, potassium 4.5, BUN 11, creatinine 0.9, glucose 91. Troponin is negative. Urinalysis is negative. The pressure was noted to be elevated on arrival to the emergency room at 181/ 77. Is it reported that she was diagnosed with urinary tract infection and was started on cefdinir on 06/[address] Box. She did miss several doses that she got confused regarding her pill boxes. She did resume Cefdinir over the last 3 days. She is seen today on initial examination. She is alert, oriented and pleasant. No noted motor or neurologic deficits on examination. She reports of having ongoing dizziness and has been taking meclizine for symptoms. Objective Vital signs: Temperature 97.5 F 07/05/17 07:22 Pulse Rate 70 07/05/17 15:24 Respiratory Rate 17 07/05/17 15:22 Blood Pressure 153/70 H 07/05/17 15:24 Pulse Oximetry 98 07/05/17 15:22 Rhythm: Normal Sinus Rhythm Height/Weight/BMI: Height 5 ft 8 in Weight 64.2 kg Body Mass Index 20.3 - Constitutional Present: no acute distress, thin - Routine HEENT Exam Head: Present: normocephalic, atraumatic Eye: Present: EOMI, PERRL - Routine Respiratory Exam Present: CTA bilaterally - Routine Cardiovascular Exam Present: RRR - Routine Abdominal Exam Present: soft, non distended, non tender - Routine Extremities Exam Absent: cyanosis, clubbing, edema - Routine Neurological Exam Present: alert, oriented X3, CN II-XII intact - Routine Psychiatric Exam Present: normal affect, cooperative, good insight, good judgment Hospital Course This is a general summary of the patient's hospital course. For more details refer to the complete medical record. Hospital course: Pt was admitted to the hospital on 07/03 due to the following Impression General weakness Multiple falls Hyponatremia-present on admission, 131 Current treatment for urinary tract infection Hypothyroidism Osteoarthritis Admission plan Admit patient to outpatient observation under care of Dr. Owens for generalized weakness, dizziness with recent falls. Patient has been under the outpatient treatment for urinary tract infection. Urinalysis is negative today. However, she continues on cefdinir. CT head performed today reveals no intracranial abnormality or hemorrhage. There was some questionable sinusitis. CT cervical spine shows multiple level of degenerative spinal canal stenosis. Will obtain MRI of head and C-spine. Possible consultation with Dr Hairston given worsening left foot drop Normal saline at 100 ML per hour for ongoing hydration given hyponatremia Consultation placed to PT and OT for evaluation. Spoke with patient and son, patient may require more assistance following hospitalization, i.e. rehabilitation versus skilled prior to returning home independently Recheck CBC and BMP tomorrow morning to follow blood counts, renal function and electrolytes. Will discuss further orders and plan of care with attending, Dr. Owens. At time of discharge medical care will return to her primary care provider, Dr. Box Patient does verbalize her wish to be a do not resuscitate and this order is written Hospital course Pt was admitted and her Na rapidly corrected. MRI of the lumbar spine showed a S6 compression fracture; pt had no pain. A bone scan was ordered. Dr Hairston ( Staff neurologist) recommended to adjust the Meclizine dose and to consider pt to go to rehab. Pt has been accepted to IRU. Will be following pt with the hospitalist team and will check on the Bone scan results. DIAGNOSIS 1) S6 ACUTE FRACTURE - WITH A RECENT FALL & GENERALIZED WEAKNESS. Pt also describes what could be a component of BPPV. She is improved. Pt was seen by Neurologist (Dr Hairston - staff neurologist) - who recommended adjusting her Meclizine and for her to go to rehab. - Check a Bone scan to R/O metastatic disease and other acute fractures. - Per neurology recommendation pt could be going to IRU or rehab soon. - Will change Meclizine to 12.5 mg PO Q6H 2) Hypovolemic hyponatremia. resolved. - Hyponatremia-present on admission, 131 - Corrected on 07/04 (Na = 140), without taking her off her SSRI. - AM cortisol normal - TSH normal 3) Hypertension, currently pure systolic. - EKG does not suggest LVH - May consider Norvasc if SBP continues to be high AND pt has no orthostasis ( This can be done as outpatient - ideally after a 24 hr monitoring of her BP). 4) Recent UTI, overactive bladder or Mirabegron. - Pt on Cefdinir, today is the last day. - Reduced dose of Mirabegron to 25mg/day as this may cause HTN. Disposition - TO IRU Time spent with patient: 25 - 35 minutes Discharge Plan - Med Rec/Dispo Truven Instructions: Hyponatremia (GEN), Fall Prevention (GEN) Prescriptions: New Meclizine [Antivert] 12.5 mg PO Q6H PRN #30 tablet PRN Reason: Dizziness Continue Meloxicam 7.5 mg PO DAILY #0 Mirabegron [Myrbetriq] 50 mg PO DAILY #0 Cranberry Fruit Extract [Cranberry] 200 mg PO DAILY Cyanocobalamin (Vitamin B-12) [Vitamin B-12] 1,000 mcg PO DAILY Levothyroxine Tab [Synthroid] 100 mcg PO ACB #0 Acetaminophen [Acetaminophen Extra Strength] 500 mg PO Q4H PRN #0 PRN Reason: PAIN Sertraline HCl 50 mg PO DAILY #0 Omeprazole 20 mg PO ACB #0 cap Fexofenadine [Nelly] 180 mg PO DAILY Meclizine HCl 25 mg PO CHEW BID PRN PRN Reason: Dizziness Discontinued Cefdinir 600 mg PO DAILY No Action Multivit-Min/Iron/Folic/Dci836 [Hair, Skin and Nails Tablet] 1 each PO DAILY - Disposition 62 To [facility]
== END 2017-07-05 16:30 ==
LOC: ED 09:25 → MED 09:25
PROVIDERS: ADMIT Internal Medicine; ATTEND Internal Medicine

== ENCOUNTER 2017-07-05 16:30 | Inpatient (IN) ==
[2017-07-05] MEDS ORDERED: POLYETHYL GLYCOL 3350 17gm PACKET PO PRN (17:19)
[2017-07-05] MEDS ORDERED: MECLIZINE 12.5 MG TABLET PO PRN (17:19)
[2017-07-05] MEDS ORDERED: FALL RISK - PHARMACY CONSULT MC PRN (17:34)
--- NOTE | 2017-07-05 21:17 | IRU History & Physical Report ---
[facility] Date: Chief complaint: I'm dizzy HPI: Mrs. Reynolds is a very pleasant 81-year-old white female admitted through the emergency department with weakness and multiple falls. referring physician is Dr. Janes Owens. Primary care provider is Dr. Box. She has also had significant vertigo. She was admitted to acute care secondary to weakness and falling episodes and was evaluated with multiple scans and evaluations. She was initially noted to have a sodium of 131 with a serum osmolality of 252. This subsequently corrected. She was evaluated with a.m. cortisol and TSH both of which were normal. She has had multiple falls over the last several weeks. She states that she has fallen some 4 or 5 times since she moved to [place] in August 2016. Recently she has fallen on June 20 and June 29. She was also diagnosed with a urinary tract infection on June 21 and started on Cefdinir by Dr. Box. She has now completed that course of therapy and her urinalysis while on acute was clear. She states that every time she falls it is preceded by an episode of significant vertigo. She says that she has had vertigo for a number of years but it is certainly worse at the present time. She fell 1-2 weeks ago in the hallway. She again fell shortly thereafter. Each time it is related to her vertigo. She notes vertigo every time she rolls over in bed, sits up suddenly or when she looks down. she denies any known history of presyncope or syncope. MRI of the cervical spine showed chronic degenerative changes only. MRI of brain showed chronic changes and some maxillary sinusitis. MRI of lumbar spine did reveal the presence of an acute fracture of S3 which was confirmed on nuclear medicine bone scan today. Her bone scan also showed uptake in the right 10th and 11th ribs consistent with trauma. No evidence of metastatic disease is identified. She states that she does not have much in the way of pain. However, she has been evaluated by physical therapy and occupational therapy and has several deficits identified. She has a history of chronic bilateral foot drop, left greater than right. She states that that is worse than it has been in the past as well. It is not clear if she has had head trauma this time or not. She was seen in consultation by neurology, Dr. Sorto who feels as though she has benign positional vertigo. He recommended meclizine as well as appropriate vestibular exercises. I described to her symptoms of Mnire's disease (roaring in the ears, severe nausea and vomiting, diaphoresis with subsequent hearing loss and vertigo). She states that she does not recall ever having had an episode like that. However does have hearing loss in the left ear. She also describes headaches in the bitemporal area and occipital area. She denies any visual changes or double vision or blurred vision. The episodes of vertigo come on suddenly but then gradually go away over a period from 30 minutes to 2 hours. These are definitely brought on by change in position. She lives in an apartment at [address]. She lives alone. There are no stairs to climb. She does use a rolling walker all the time. The patient will require an intensive individualized program of medical management, 24-hour rehabilitation nursing and physical therapy and occupational therapy to address the following issues: 1. Episodic severe vertigo: She has apparently had this for a number of years but it certainly much worse at the present time. She is at high risk for falling and will require vestibular rehabilitation as well as gait training, balance training etc. 2. Hyponatremia: She will be observed for recurrence of her initially noted hyponatremia which could influence her cognitive function and stability with walking. 3. New fracture at S3: We will observe for pain management in this regard. 4. Recent urinary tract infection: We will observe for recurrence of this. She will require therapies as follows: 1. Physical therapy to address her vertigo and balance issues. 2. Occupational therapy to address ADLs and safety with transfers as well as bathing and IADLs. 3. 24-hour rehabilitation nursing to monitor her neurologic status in view of her severe vertigo. 4. Medical oversight regarding the above medical conditions. Review of Systems - Constitutional Constitutional: Present: fatigue, headache(s), malaise, weakness - EENMT Eyes: Absent: blurry vision, change in vision, diplopia Balance: Present: vertigo Mouth/Throat: Absent: sore throat, changes in swallowing - Cardiovascular Cardiovascular: Absent: chest pain, palpitations, syncope, dyspnea on exertion, orthopnea, edema, cyanosis Rhythm: Present: regular rhythm Vascular: Absent: intermittent claudication - Respiratory Respiratory: Absent: cough, dyspnea, hemoptysis, wheezing, pain on inspiration, chest congestion - Gastrointestinal Gastrointestinal: Present: change in bowel habits, constipation. Absent: abdominal pain, diarrhea, nausea, vomiting - Genitourinary Genitourinary: Present: urinary incontinence. Absent: abnormal vaginal bleeding , dysuria, pelvic pain, urinary frequency - Musculoskeletal Musculoskeletal: Present: back pain, muscle weakness. Absent: neck pain - Integumentary/Breasts Integumentary: Absent: alopecia - Neurological Neurological: Present: frequent falls, vertigo, weakness. Absent: abnormal movements, abnormal speech, loss of vision, memory loss - Psychiatric Psychiatric: Absent: anhedonia, anxiety, difficulty concentrating - Hematologic/Lymphatic Hematologic/Lymphatic: Absent: easy bleeding PFSH Patient Stated Medical History Peripheral Neuropathy Yes: peripheral neuropathy Cataracts Yes: removed Constipation No Hx Incontinence No Hx Urinary Tract Infection Yes: multiple, chronic Osteoarthritis Yes Shingles Yes Depression Yes: zoloft Medical History Updates: recent hypothyroidism, urinary incontinence, hypothyroidism, vertigo Surgical History: Hysterectomy, orthopedic surgery. BS and O with hysterectomy. Bilateral cataract procedure. Right total knee replacement. She has had 2 surgeries on her left hip. Family History: father with tuberculosis. Mother at childbirth. One sister rather suddenly of uncertain causes. She has had 3 brothers all of whom are . One brother of either pulmonary related illness or alcohol related illness. Another brother with sudden shortly after he retired. Reportedly had a "heart attack." A third brother during surgery for his appendix. 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 He retired at age 70. Current residence: Apartment/Private Home Social history: She lives alone at [place]. Moved here from [facility] in August 2016. about 8 years ago. He worked as an entry level accountant. 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 She has been very active in her denominational and has enjoyed cooking for them. Son is an oncologist in [place]. Medications Home Medications Medication Instructions Recorded Confirmed Type Levothyroxine Tab [Synthroid] 100 mcg PO ACB #0 04/22/13 07/03/17 History Meloxicam 7.5 mg PO DAILY #0 08/28/15 07/03/17 History Acetaminophen [Acetaminophen Extra 500 mg PO Q4H PRN #0 10/18/15 07/03/17 History Strength] Mirabegron [Myrbetriq] 50 mg PO DAILY #0 08/04/16 07/03/17 History Sertraline HCl 50 mg PO DAILY #0 08/04/16 07/03/17 History Omeprazole 20 mg PO ACB #0 cap 11/25/16 07/03/17 History Cranberry Fruit Extract [Cranberry] 200 mg PO DAILY 07/03/17 07/03/17 History Cyanocobalamin (Vitamin B-12) 1,000 mcg PO DAILY 07/03/17 07/03/17 History [Vitamin B-12] Fexofenadine [Nelly] 180 mg PO DAILY 07/03/17 07/03/17 History Meclizine HCl 25 mg PO CHEW BID PRN 07/03/17 07/03/17 History Multivit-Min/Iron/Folic/Aqr905 1 each PO DAILY 07/03/17 07/03/17 History [Hair, Skin and Nails Tablet] Allergies Allergy/AdvReac Type Severity Reaction Status Date / Time No Known Allergies Allergy Verified 07/03/17 09:52 Results IRU - Labs Labs: I have reviewed the MRI reports, CT reports, nuclear medicine bone scan report, as well as the history and physical and consultation notes from her acute stay. I have reviewed her laboratory as well. Exam Vital Signs: Temperature 98.3 F 07/05/17 16:50 Pulse Rate 64 07/05/17 16:50 Respiratory Rate 16 07/05/17 16:50 Blood Pressure 156/81 H 07/05/17 16:50 Pulse Oximetry 95 07/05/17 16:50 Height/Weight/BMI: Height 1.75 m Weight 61.3 kg Body Mass Index 19.9 - Constitutional Present: no acute distress, thin, cooperative - Routine HEENT Exam Head: Present: normocephalic, atraumatic, cushingoid faces. Absent: abrasion Eye: Present: EOMI, PERRL. Absent: scleral injection ENT: Present: mucous membranes moist, oropharynx clear - Routine Neck Exam Present: supple, full ROM. Absent: JVD, lymphadenopathy, thyromegaly - Routine Respiratory Exam Present: CTA bilaterally. Absent: accessory muscle use, dyspnea, decreased breath sounds, prolonged expiratory phase, rales, respiratory distress, rhonchi , stridor, wheezes, crackles - Routine Cardiovascular Exam Present: RRR, S1, S2, no murmur. Absent: S3, S4 - Routine Abdominal Exam Present: soft, normoactive bowel sounds, non distended, non tender. Absent: organomegaly, mass - Routine Extremities Exam Present: no edema, non tender, full ROM. Absent: cyanosis, clubbing - Routine Back/Spine/Pelvis Exam Back/Spine: Present: kyphosis. Absent: vertebral tenderness, muscle spasm - Routine Skin Exam Present: intact, dry, warm. Absent: erythema, rash - Routine Neurological Exam Present: alert, oriented X3, CN II-XII intact, motor deficit, moving all extremities. Absent: sensory deficit - Routine Psychiatric Exam Present: normal affect, normal thought process, cooperative, good insight, good judgment. Absent: depressed, anxious IRU A/P (1) Vertigo Current visit: Yes Status: Acute She has severe episodes of vertigo which are induced by change in position. Does not have symptoms of Mnire's disease. MRI essentially negative. We will continue meclizine and work with vestibular rehabilitation as well as work on safety with transfers, balance and ambulation. (2) Sacral fracture, closed Qualifiers: Encounter type: initial encounter Zone of sacrum fracture: unspecified portion of sacrum Qualified Code(s): S32.10XA - Unspecified fracture of sacrum , initial encounter for closed fracture Current visit: Yes Status: Acute Has evidence of acute fracture of S3 likely secondary to trauma. Pain is well controlled at present. (3) Recurrent UTI (urinary tract infection) Current visit: Yes Status: Resolved Reportedly has recurrent urinary tract infections. Has had multiple falls which may or may not be related. Recently has completed treatment for another UTI. (4) Frequent falls Current visit: Yes Status: Acute She has experienced multiple falls over the last several months. Recently she has had 23. She is at risk for significant trauma and will require intensive individualized physical therapy and occupational therapy. DVT Prophylaxis: SCD's, Lovenox Resuscitation Status: Do Not Resuscitate - Course Hospital Course: Kareem Kumar MD: - Interventions to Obtain Goals PT Treatment Plan: Balance/Proprioception, Functional Activities, Gait Training , Patient/Family Education, Vestibular Rehab OT Treatment Plan: ADL (Basic Care), Balance Training, IADL, Pt./Family Education Goals Progress/Modifications: Patient has severe episodic vertigo and is at risk for multiple falls. We will institute an individualized program to help with balance, vertigo treatment, strengthening and ADLs.
--- NOTE | 2017-07-05 21:47 | IRU 24Hr Post Admit Eval ---
24 Hr Post Admission Physical - Relevant Changes Relevant Changes: No Reviewed: I have reviewed the patient's information and concur with the finding and results of the pre-admission screen. Certification: I certify the patient for rehabilitation. - Patient Condition (1) Vertigo Status: Acute Code(s): R42 - Dizziness and giddiness Classification: Present on IRF Admission, IRF Tx That Should Address Diagnosis, Diagnosis Requiring Medical Follow Up (2) Sacral fracture, closed Status: Acute Qualifiers: Encounter type: initial encounter Zone of sacrum fracture: unspecified portion of sacrum Qualified Code(s): S32.10XA - Unspecified fracture of sacrum , initial encounter for closed fracture Code(s): S32.10XA - Unspecified fracture of sacrum, initial encounter for closed fracture Classification: Present on IRF Admission, IRF Tx That Should Address Diagnosis, Diagnosis Requiring Medical Follow Up (3) Recurrent UTI (urinary tract infection) Status: Resolved Code(s): N39.0 - Urinary tract infection, site not specified Classification: Diagnosis Requiring Medical Follow Up, Other Contributing Factor (4) Frequent falls Status: Acute Code(s): R29.6 - Repeated falls Classification: Present on IRF Admission, IRF Tx That Should Address Diagnosis - Prior Functional Status Lives With: Alone Residence Type: Apartment/Private Home Assitive Devices: Four Wheeled Walker Prior Functional Status: Indep. at home or school, Used assistive device, Indep. w/ IADL - Current Functional Status Current Level of Function: She requires minimal assistance for grooming, moderate assistance for bathing, minimal assistance for lower body dressing, maximal assistance for toileting and bed/chair/wheelchair transfer. She requires total assistance for walking. She is walking 8 feet only. Failed Alternative Therapy: Arrived from Acute Care Patient Requirements: The patient requires oversight by rehabilitation physician to manage their rehabilitation treatment plan and multidisciplinary approach to care that can only be provided in an IRF and requires a multidisciplinary approach to care, provided by professional PTs, OTs, STs, dieticians, RTs, rehabilitation nurses and is not available in lesser levels of care. Limitations Req: Mobility Impairment, ADL Impairment Physical Therapy Minutes: 90 Occupational Therapy Minutes: 90 Therapy: The patient is to receive therapy at least 5 days a week. - Complications/Comorbidities Impact on Functional Outcomes: The patient's episodic vertigo will impact her functional outcomes. Barriers to Discharge: Weakness, Balance, Medical Limitation (vertigo) - Impact of Co-morbidities on function As noted above, her episodic vertigo may impact her ability to achieve modified independent functioning. In addition, she does have recurrent urinary tract infections which will be monitored. She has a recent fracture of S3 which may significantly impact her recovery by virtue of pain development. - Plan to Avoid Complications Plan to Avoid Complications: The patient cannot receive this care in a lesser intensive setting such as Halfway or Outpatient Therapy due to the patient requiring the following : 24 hour rehabilitation nursing monitoring for her vertigo to prevent falls, medical supervision of her vertigo, monitoring for hyponatremia recurrence and recurrence of urinary tract infection. Appropriate management of her sacral fracture in terms of pain control in addition. .
[2017-07-06] MEDS: OMEPRAZOLE 20 MG CAPSULE PO SCH ×2 (05:07→05:59)
[2017-07-06] MEDS: LEVOTHYROXINE 100 MCG TABLET PO SCH ×2 (05:07→05:59)
[2017-07-06] MEDS: MELOXICAM 7.5 MG TABLET PO SCH (08:47)
[2017-07-06] MEDS: FEXOFENADINE 180 MG TABLET PO SCH (08:48)
[2017-07-06] MEDS: MIRABEGRON 25mg TABLET PO SCH (08:48)
[2017-07-06] MEDS: MULTI-VITAMIN + MINERAL TABLET PO SCH (08:48)
[2017-07-06] MEDS: SERTRALINE 50 MG TABLET PO SCH (08:48)
--- NOTE | 2017-07-06 09:37 | Consult Note ---
<Dayana Palomo V - Last Filed: 07/06/17 10:27> Consult Information - Data of Consult Consult date: 07/06/17 Requesting Physician: Kareem Kumar MD Primary Care Provider: Dee Box MD Family Provider: Dee Box MD - Consult Narrative Reason for consult: Medical managment of dizziness History of present illness: Maria Del Carmen is known to the hospitalist services as she was recently admitted acutely weakness, dizziness and falls. She reported 4-5 falls over the past 10 months, however, recent falls, June 20 and June 29. She was diagnosed with urinary tract infection and was started on cefdinir by her primary care provider , Dr. Box. She has been having vertigo intermittently that does cause her to fall. Medical work up did revel a S6 compression fracture. She was seen by Dr Hairston who recommended continuation of meclizine as needed. Once she was medically stabilized she was accepted to the IRU for ongoing strengthening and therapy. Maria Del Carmen is seen this morning during breakfast. She is alert and pleasant. She reports she had a good night and was able to get good sleep. She currently denies having any dizziness, chest pain or shortness of breath. Standing blood pressure this morning was 134/67. 1. In laboratory studies reviewed, W BBC slightly up at 11.3, hemoglobin 14.3, hematocrit 41.8, platelet count 353. Sodium is 137, potassium 4.4, BUN 18, creatinine 0.6. [facility] Patient Stated Medical History Vertigo Hypothyroidism Peripheral neuropathy Constipation History of urinary incontinence with UTI History of shingles Depression Osteoarthritis Medical History Updates: Hypothyroidism. urinary incontinence. vertigo Surgical History: Hysterectomy, orthopedic surgery. BS and O with hysterectomy. Bilateral cataract procedure. Right total knee replacement. She has had 2 surgeries on her left hip. Family History: Noncontributory - Social History Smoking status: Never smoker Substance use type: does not use Alcohol intake frequency: does not drink Housing: house Current residence: Independent Living Social history: PCP Dr Box Review of Systems Comprehensive ROS: completed and no additional positive findings except those as stated - Constitutional Constitutional: Present: fatigue, weakness - EENMT Balance: Present: vertigo (intermittently) Medications Home Medications Medication Instructions Recorded Confirmed Type Levothyroxine Tab [Synthroid] 100 mcg PO ACB #0 04/22/13 07/06/17 History Meloxicam 7.5 mg PO DAILY #0 08/28/15 07/06/17 History Acetaminophen [Acetaminophen Extra 500 mg PO Q4H PRN #0 10/18/15 07/06/17 History Strength] Mirabegron [Myrbetriq] 50 mg PO DAILY #0 08/04/16 07/06/17 History Sertraline HCl 50 mg PO DAILY #0 08/04/16 07/06/17 History Omeprazole 20 mg PO ACB #0 cap 11/25/16 07/06/17 History Cranberry Fruit Extract [Cranberry] 200 mg PO DAILY 07/03/17 07/03/17 History Cyanocobalamin (Vitamin B-12) 1,000 mcg PO DAILY 07/03/17 07/03/17 History [Vitamin B-12] Fexofenadine [Nelly] 180 mg PO DAILY 07/03/17 07/06/17 History Meclizine HCl 25 mg PO CHEW BID PRN 07/03/17 07/03/17 History Multivit-Min/Iron/Folic/[id number] 1 each PO DAILY 07/03/17 07/06/17 History [Hair, Skin and Nails Tablet] Allergies Allergy/AdvReac Type Severity Reaction Status Date / Time No Known Allergies Allergy Verified 07/03/17 09:52 Exam Vital Signs: Temperature 97.6 F 07/06/17 08:40 Pulse Rate 64 07/06/17 08:40 Respiratory Rate 15 07/06/17 00:00 Blood Pressure 138/66 07/06/17 08:40 Pulse Oximetry 98 07/06/17 08:40 Height/Weight/BMI: Height 1.75 m Weight 61.3 kg Body Mass Index 19.9 - Constitutional Present: no acute distress, well nourished, well developed - Routine HEENT Exam Eye: Present: EOMI, PERRL ENT: Present: mucous membranes moist, dentition normal - Routine Neck Exam Present: full ROM - Routine Respiratory Exam Present: CTA bilaterally. Absent: wheezes - Routine Cardiovascular Exam Present: RRR, S1, S2. Absent: murmur - Routine Abdominal Exam Present: soft, normoactive bowel sounds, non distended. Absent: tenderness - Routine Extremities Exam Present: full ROM, normal capillary refill - Routine Skin Exam Present: intact, dry, warm - Routine Neurological Exam Present: alert, oriented X3, CN II-XII intact, moving all extremities - Routine Psychiatric Exam Present: normal affect, normal thought process, cooperative Results - Labs CBC & Chem 7: 07/06/17 04:35 07/06/17 04:36 Assessment and Plan (1) Sacral fracture, closed Current visit: Yes Status: Acute (2) Frequent falls Current visit: Yes Status: Acute Assessment and Plan: Impression Frequent falls Vertigo Sacral fracture Chronic urinary incontinence with frequent UTIs Hypothyroidism OA Plan Rehabilitation orders and management as per Dr Kumar Encourage work with PT/OT for strengthening. Maria Del Carmen was living independently prior to admission Continue with Meclizine for dizziness, will schedule 12.5 TID as recommended by Dr. Hairston. Did also consider adding steroids. Montior regular BMP to follow electrolytes. She did have hyponatremia on initial admission. Tylenol as needed for sacral fracture pain. Will attempt to avoid use of narcotics as this may add to dizziness and constipation. Zoloft for chronic depression. MiraLAX for chronic bowel motivation Hospital Course Summary Disclaimer: The visit summary below is not to be considered part of the above Progress Note. Hospital Course: 07/06/17- initial consultation Impression Frequent falls Vertigo Sacral fracture Chronic urinary incontinence with frequent UTIs Hypothyroidism OA Plan Rehabilitation orders and management as per Dr Kumar Encourage work with PT/OT for strengthening. Maria Del Carmen was living independently prior to admission Continue with Meclizine for dizziness, will schedule 12.5 TID as recommended by Dr. Hairston. Did also consider adding steroids. Montior regular BMP to follow electrolytes. She did have hyponatremia on initial admission. Tylenol as needed for sacral fracture pain. Will attempt to avoid use of narcotics as this may add to dizziness and constipation. Zoloft for chronic depression. MiraLAX for chronic bowel motivation <Magda Norris Danitza - Last Filed: 07/07/17 20:35> Consult Information - Data of Consult Requesting Physician: Kareem Kumar MD Primary Care Provider: Dee Box MD Family Provider: Dee Box MD [facility] Patient Stated Medical History Peripheral Neuropathy Yes: peripheral neuropathy Cataracts Yes: removed Constipation No Hx Incontinence No Hx Urinary Tract Infection Yes: multiple, chronic Osteoarthritis Yes Shingles Yes Depression Yes: zoloft Exam Vital Signs: Temperature 98.1 F 07/07/17 15:07 Pulse Rate 66 07/07/17 15:07 Respiratory Rate 18 07/07/17 15:07 Blood Pressure 135/69 07/07/17 15:07 Pulse Oximetry 97 07/07/17 15:07 Height/Weight/BMI: Height 1.75 m Weight 61.3 kg Body Mass Index 19.9 Results - Labs CBC & Chem 7: 07/06/17 04:35 07/06/17 04:36 Assessment and Plan (1) Sacral fracture, closed Current visit: Yes Status: Acute (2) Frequent falls Current visit: Yes Status: Acute Assessment and Plan: 07/07/2017-I reviewed this chart, the patient history, and the [employer]'s/PA's documented findings as above. We discussed and formulated the assessment and plan as above with the additions below.-Dr. Norris The patient was seen in her room this evening after supper. She stated she is eating very well. She states she took a nap after therapy today. She feels like she is doing very well with therapy. Her dizziness is markedly improved. She feels her strength is getting better. She denies any pain from her sacral fracture. She denies any shortness of breath or chest discomfort. On exam she is alert and oriented 3 and in no acute distress. Chest is clear to auscultation. Cardiovascular reveals a regular rate and rhythm. Abdomen is soft and nontender. Extremities are free of edema. Overall, the patient appears to be doing quite well. Continue with current treatment plan. Hospital Course Summary Disclaimer: The visit summary below is not to be considered part of the above Progress Note.
[2017-07-06] MEDS ORDERED: MECLIZINE 12.5 MG TABLET PO SCH (11:00)
[2017-07-06] MEDS: MECLIZINE 12.5 MG TABLET PO SCH ×3 (11:32→20:15)
[2017-07-07] MEDS: LEVOTHYROXINE 100 MCG TABLET PO SCH (07:22)
[2017-07-07] MEDS: OMEPRAZOLE 20 MG CAPSULE PO SCH (07:22)
[2017-07-07] MEDS: MELOXICAM 7.5 MG TABLET PO SCH (09:01)
[2017-07-07] MEDS: FEXOFENADINE 180 MG TABLET PO SCH (09:02)
[2017-07-07] MEDS: SERTRALINE 50 MG TABLET PO SCH (09:02)
[2017-07-07] MEDS: MECLIZINE 12.5 MG TABLET PO SCH ×3 (09:02→21:46)
[2017-07-07] MEDS: MULTI-VITAMIN + MINERAL TABLET PO SCH (09:03)
[2017-07-07] MEDS: MIRABEGRON 25mg TABLET PO SCH (09:03)
--- NOTE | 2017-07-07 10:57 | IRU Progress Note ---
- Subjective/Serverity of Illness Mrs. Robert was evaluated in her room today. In addition I spent some time visiting with her son regarding her medical situation. Her son has noticed reduced memory over the last several months. She has discontinued driving. I asked the patient about her memory today and she says that it is doing better. However she does recognize there is a problem. We did do a partial Mini-Mental status examination. She knows that the month is June but believes the date is the . She knows that the year is 2016. She did refer to a sign on the wall to know where she was. She initially fumbled around and did not know for sure where she was. She does note that she is on the first floor. She could repeat 3 items initially but after 5 minutes cannot recall any of them. She was able to spell 3C of the word world backwards. However amazingly she could subtract serial sevens down to 72. I asked her if she would be willing to take a medication for her memory and she says that she would like to do that. We will therefore start donepezil. With regard to her dizziness she continues to have episodes of vertigo. Apparently underwent Josafat maneuver yesterday. Did have some vertigo in this regard. Denies any nausea or vomiting. She states that her appetite is good. Her bowels are somewhat sluggish. Update on medical problems as follows: 1. Episodic severe vertigo: Physical therapy is addressing this with Josafat maneuver and other procedures. Spoke with the patient's son. She has had this for a number of years but it is definitely worse at the present time. 2. Hyponatremia: Sodium monitored as well as other blood tests. It is stable at the present time. 3. New fracture at S3: We will observe for pain management in this regard. 4. Recent urinary tract infection: We will observe for recurrence of this. Exam Vital Signs: Temperature 97.6 F 07/07/17 07:29 Pulse Rate 75 07/07/17 07:34 Respiratory Rate 16 07/07/17 07:29 Blood Pressure 150/71 H 07/07/17 07:34 Pulse Oximetry 96 07/07/17 07:29 Height/Weight/BMI: Height 1.75 m Weight 61.3 kg Body Mass Index 19.9 Comments: The patient is awake, alert. Mini-Mental Status exam was done with results as noted in the above discussion. She is in no distress. Pupils are equal. The neck is supple. Chest: Clear to auscultation bilaterally. Cor: RR with no gallop, click nor murmur Abd: soft with normo-active bowel sounds. There are no masses, no tenderness and no guarding. Extremities: No edema is noted. There are good pulses in both ankles. No cyanosis is present. Results IRU - Labs Labs: Reviewed laboratory. Sodium remains normal. White count minimally up at 11,000. IRU A/P (1) Vertigo Current visit: Yes Status: Acute Continues to struggle with vertigo upon change in position. She is making progress with therapies. (2) Sacral fracture, closed Qualifiers: Encounter type: initial encounter Zone of sacrum fracture: unspecified portion of sacrum Qualified Code(s): S32.10XA - Unspecified fracture of sacrum , initial encounter for closed fracture Current visit: Yes Status: Acute She denies any pain in the sacral area. (3) Recurrent UTI (urinary tract infection) Current visit: Yes Status: Resolved While she denies symptoms of urinary infection she does have a low-grade white count. We will monitor this carefully. (4) Frequent falls Current visit: Yes Status: Acute (5) Memory loss Current visit: Yes Status: Chronic She does have evidence of reduced memory as noted above. We will start donepezil. DVT Prophylaxis: SCD's, Lovenox Resuscitation Status: Do Not Resuscitate - Course Hospital Course: Kareem Kumar MD: 07/07/17 11:00 She is adjusting to the rehabilitation milieu well. Continues to have vertigo. This is being addressed. Mini-Mental status exam indicates memory loss so we will start some donepezil. - Interventions to Obtain Goals PT Treatment Plan: Balance/Proprioception, Functional Activities, Gait Training , Patient/Family Education, Therapeutic Exercise OT Treatment Plan: ADL (Basic Care), Balance Training, IADL, Pt./Family Education, Ther. Exercise for ADL Goals Progress/Modifications: Time spent with patient and on floor reviewing data and documentin minutes Barriers to dismissal: Vertigo, cognition Medical decision-making: We addressed her vertigo today. In addition we performed a Mini-Mental Status Examination and discussed the use of donepezil with the patient and her son. We will proceed with starting that medication. Please note that the patient's individual plan of care was developed and documented today, requiring review of therapy notes, medical conditions and anticipated functional recovery. This required additional medical decision making with regard to interaction of the patient's medical issues with the anticipated functional recovery. Please see separate document
--- NOTE | 2017-07-07 16:49 | IRU Plan of Care ---
[facility] Overall Plan of Care - Date Date: 07/07/17 - Patient Impairments (1) Vertigo Code(s): R42 - Dizziness and giddiness Status: Acute Classification: Present on IRF Admission, IRF Tx That Should Address Diagnosis, Diagnosis Requiring Medical Follow Up (2) Sacral fracture, closed Qualifiers: Encounter type: initial encounter Zone of sacrum fracture: unspecified portion of sacrum Qualified Code(s): S32.10XA - Unspecified fracture of sacrum , initial encounter for closed fracture Code(s): S32.10XA - Unspecified fracture of sacrum, initial encounter for closed fracture Status: Acute Classification: Present on IRF Admission, IRF Tx That Should Address Diagnosis, Diagnosis Requiring Medical Follow Up (3) Recurrent UTI (urinary tract infection) Code(s): N39.0 - Urinary tract infection, site not specified Status: Resolved Classification: Diagnosis Requiring Medical Follow Up, Other Contributing Factor (4) Frequent falls Code(s): R29.6 - Repeated falls Status: Acute Classification: Present on IRF Admission, IRF Tx That Should Address Diagnosis (5) Memory loss Code(s): R41.3 - Other amnesia Status: Chronic Classification: Present on IRF Admission, IRF Tx That Should Address Diagnosis ( right), Diagnosis Requiring Medical Follow Up - Relevant Changes Relevant Changes: No Reviewed: I have reviewed the patient's information and concur with the finding and results of the pre-admission screen. Certification: I certify the patient for rehabilitation. - Medical Prognosis Medical Prognosis: Good Vital Signs: Last Vital Signs Temp 98.1 F 07/07/17 15:07 Pulse 66 07/07/17 15:07 Resp 18 07/07/17 15:07 BP 135/69 07/07/17 15:07 Pulse Ox 97 07/07/17 15:07 - Anticipated Interventions Anticipated Interventions: The patient requires inpatient IRF care for PT, OT, and/or ST for residuals remaining from exacerbation of benign positional vertigo resulting in muscular weakness and strength deficits. - Current Functional Status Failed Alternative Therapy: Arrived from Acute Care Patient Requires: The patient requires oversight by rehabilitation physician to manage their rehabilitation treatment plan and multidisciplinary approach to care that can only be provided in an IRF and requires a multidisciplinary approach to care, provided by professional PTs, OTs, STs, dieticians, RTs, rehabilitation nurses and is not available in lesser levels of care. Physical Therapy Minutes: 90 Occupational Therapy Minutes: 90 Therapy: The patient is to receive therapy at least 5 days a week. - Anticipated LOS/Outcomes Anticipated Functional Outcome: It is anticipated the patient will return to her assisted living apartment with modified independent level of functioning. Anticipated Length of Stay (days): 14 Anticipated DC Destination: Home, Self [facility] Safety Plan: The patient will be provided with the development of a Home Safety Plan for return to a home or home-like environment and and to ensure safety post discharge. - Plan to Avoid Complications Barriers to Attaining Goals: Balance, Medical Limitation Plan to Avoid Complications: The patient cannot receive this care in a lesser intensive setting such as Residential or Outpatient Therapy due to the patient requiring the following : Recent fracture of sacrum, frequent episodes of severe vertigo requiring physical therapy intervention and 24 hour rehabilitation nursing monitoring and assistance.
[2017-07-07] MEDS: DONEPEZIL 5 MG TABLET PO SCH (21:47)
[2017-07-08] MEDS: OMEPRAZOLE 20 MG CAPSULE PO SCH (08:41)
[2017-07-08] MEDS: MELOXICAM 7.5 MG TABLET PO SCH (08:41)
[2017-07-08] MEDS: LEVOTHYROXINE 100 MCG TABLET PO SCH (08:41)
[2017-07-08] MEDS: SERTRALINE 50 MG TABLET PO SCH (08:42)
[2017-07-08] MEDS: MIRABEGRON 25mg TABLET PO SCH (08:42)
[2017-07-08] MEDS: FEXOFENADINE 180 MG TABLET PO SCH (08:42)
[2017-07-08] MEDS: MULTI-VITAMIN + MINERAL TABLET PO SCH (08:42)
[2017-07-08] MEDS: MECLIZINE 12.5 MG TABLET PO SCH ×3 (08:42→22:50)
[2017-07-08] MEDS: ACETAMINOPHEN 500 MG TABLET PO PRN ×2 (10:51→22:49)
[2017-07-08] MEDS ORDERED: NS 1,000 ML IV SCH (12:30)
--- NOTE | 2017-07-08 13:25 | Progress Note ---
Subjective: Mrs Reynolds is seen and examined today in follow up. Nursing staff reports that she complained of feeling dizzy this morning. Orthostatic vitals were obtained and systolic blood pressure did decrease 20 points from 123/56 to 105/57. She has had 2 episodes of loose stool this morning also. On examination she denies having any pain, nausea or dizziness while resting in bed. Objective Vital signs: Temperature 97.4 F 07/08/17 08:00 Pulse Rate 84 07/08/17 11:30 Respiratory Rate 18 07/08/17 08:00 Blood Pressure 105/57 07/08/17 11:30 Pulse Oximetry 96 07/08/17 08:00 Height/Weight/BMI: Height 1.75 m Weight 61.3 kg Body Mass Index 19.9 - Constitutional Present: no acute distress, well nourished, well developed - Routine HEENT Exam Eye: Present: EOMI ENT: Present: mucous membranes moist, dentition normal - Routine Respiratory Exam Present: CTA bilaterally. Absent: wheezes - Routine Cardiovascular Exam Present: RRR, S1, S2. Absent: murmur - Routine Abdominal Exam Present: soft, non distended. Absent: normoactive bowel sounds (hypoactive), tenderness - Routine Extremities Exam Present: normal capillary refill - Routine Skin Exam Present: intact, dry, warm - Routine Neurological Exam Present: alert, oriented X3, CN II-XII intact, moving all extremities - Routine Lymphatic Exam Lymphatic: Absent: adenopathy - Routine Psychiatric Exam Present: normal affect, cooperative Results - Labs CBC & Chem 7: 07/06/17 04:35 07/08/17 12:50 Assessment and Plan (1) Frequent falls Current visit: Yes Status: Acute (2) Sacral fracture, closed Current visit: Yes Status: Acute Assessment and Plan: Impression Frequent falls Orthostasis- acute Vertigo Sacral fracture Chronic urinary incontinence with frequent UTIs Hypothyroidism OA Plan- 07/08 In light of orthostasis and loose stools will check CBC and BMP now. Have nursing staff given 1 Liter of NS to run over 4 hours for hydration Recheck Orthostatic vitals later today following IV fluids Continue scheduled Meclizine TID Recommend holding Miralax given loose stools. Continue to encourage PT/OT for ongoing strengthening Plan discussed with attending, Dr Norris Hospital Course Summary Disclaimer: The visit summary below is not to be considered part of the above Progress Note. Hospital Course: 07/06/17- initial consultation Impression Frequent falls Vertigo Sacral fracture Chronic urinary incontinence with frequent UTIs Hypothyroidism OA Plan Rehabilitation orders and management as per Dr Kumar Encourage work with PT/OT for strengthening. Maria Del Carmen was living independently prior to admission Continue with Meclizine for dizziness, will schedule 12.5 TID as recommended by Dr. Hairston. Did also consider adding steroids. Montior regular BMP to follow electrolytes. She did have hyponatremia on initial admission. Tylenol as needed for sacral fracture pain. Will attempt to avoid use of narcotics as this may add to dizziness and constipation. Zoloft for chronic depression. MiraLAX for chronic bowel motivation Plan- 07/08 In light of orthostasis and loose stools will check CBC and BMP now. Have nursing staff given 1 Liter of NS to run over 4 hours for hydration Recheck Orthostatic vitals later today following IV fluids Continue scheduled Meclizine TID Recommend holding Miralax given loose stools. Continue to encourage PT/OT for ongoing strengthening Plan discussed with attending, Dr Norris
[2017-07-08] MEDS ORDERED: NS with KCL 20 mEq 1,000 ML IV SCH (17:30)
[2017-07-08] MEDS: MetroNIDAZOLE 250 MG TABLET PO SCH ×2 (18:16→22:50)
[2017-07-08] MEDS: DONEPEZIL 5 MG TABLET PO SCH (22:50)
[2017-07-09] MEDS: SALINE FLUSH 10ml SYRINGE IV PRN ×3 (04:30→11:54)
[2017-07-09] MEDS: OMEPRAZOLE 20 MG CAPSULE PO SCH (06:51)
[2017-07-09] MEDS: LEVOTHYROXINE 100 MCG TABLET PO SCH (06:51)
[2017-07-09] MEDS: MELOXICAM 7.5 MG TABLET PO SCH (09:12)
[2017-07-09] MEDS: SERTRALINE 50 MG TABLET PO SCH (09:12)
[2017-07-09] MEDS: MECLIZINE 12.5 MG TABLET PO SCH ×3 (09:12→21:46)
[2017-07-09] MEDS: MetroNIDAZOLE 250 MG TABLET PO SCH ×4 (09:12→21:46)
[2017-07-09] MEDS: FEXOFENADINE 180 MG TABLET PO SCH (09:12)
[2017-07-09] MEDS: MIRABEGRON 25mg TABLET PO SCH (09:12)
[2017-07-09] MEDS: MULTI-VITAMIN + MINERAL TABLET PO SCH (09:13)
--- NOTE | 2017-07-09 09:20 | XRay Report ---
INDICATION: leukocytosis PROCEDURE: CHEST 2-VIEWS UPRIGHT (PA & LAT) Encounter: Initial COMPARISON: July 03, 2017 FINDINGS: The lungs are clear without evidence of focal abnormal airspace opacity. There is no pleural effusion or pneumothorax. The heart size, mediastinal contours and pulmonary vascularity are within normal limits. There is no significant skeletal abnormality. IMPRESSION: No acute cardiopulmonary disease. .
[2017-07-09] MEDS: NS with KCL 20 mEq 1,000 ML IV SCH (11:53)
[2017-07-09] MEDS: CHOLESTYRAMINE LIGHT 4 G PACKET PO PRN (14:30)
[2017-07-09] MEDS: ACETAMINOPHEN 500 MG TABLET PO PRN (15:32)
[2017-07-09] MEDS ORDERED: FALL RISK - PHARMACY CONSULT XX ONE (15:48)
--- NOTE | 2017-07-09 16:55 | Progress Note ---
<Sloane Greenberg - Last Filed: 07/09/17 16:52> Subjective: Maria Del Carmen is seen today in follow up for her current c.diff infection. She is seen while resting in her room and arouses easily to soft voice and touch stimuli. She reports that she is feeling much better today and denies any complaints. She comments that she has enjoyed her day of rest and feels like her body needed to just "rest". She denies any chest pain, shortness of breath, abdominal pain, nausea, vomiting or dysuria. She continues to have loose stools but she feels they are improving. Her appetite is fair. Review of nursing notes and medical records indicates that she has had a low grade temperature around 99. Labs this morning revealed increase in her leukocytosis with WBC at 27.1 with 7% bands, up from 24.9 yesterday. Hypokalemia also noted with potassium at 3.5. Blood cultures are negative after 1 day. She remains on Flagyl for her C.diff without other apparent source of infection. Objective Vital signs: Temperature 100.0 F 07/09/17 15:33 Pulse Rate 79 07/09/17 15:33 Respiratory Rate 14 07/09/17 15:33 Blood Pressure 137/62 07/09/17 15:33 Pulse Oximetry 90 07/09/17 15:33 Height/Weight/BMI: Height 5 ft 9 in Weight 135 lb 2.294 oz Body Mass Index 19.9 - Constitutional Present: no acute distress, thin, cooperative - Routine HEENT Exam Head: Present: normocephalic, atraumatic Eye: Present: PERRL. Absent: conjunctival icterus ENT: Present: mucous membranes moist, oropharynx clear - Routine Respiratory Exam Present: decreased breath sounds. Absent: stridor, wheezes, crackles - Routine Cardiovascular Exam Present: RRR, S1, S2, murmur - Routine Abdominal Exam Present: soft, normoactive bowel sounds, tenderness (LLQ, mild) - Routine Extremities Exam Present: edema (trace), non tender, pulses intact. Absent: calf tenderness - Routine Back/Spine/Pelvis Exam Back/Spine: Present: full ROM - Routine Musculoskeletal Exam Musculoskeletal: Present: moving extremities well - Routine Skin Exam Present: intact, dry, warm. Absent: jaundice - Routine Neurological Exam Present: alert, moving all extremities, normal speech - Routine Lymphatic Exam Lymphatic: Absent: lymphedema - Routine Psychiatric Exam Present: normal affect, cooperative Results - Labs CBC & Chem 7: 07/09/17 05:22 07/09/17 05:22 Microbiology Results: Microbiology 07/08/17 15:01 Peripheral/Iv Start Blood Culture - Preliminary No Growth After 1 Day 07/08/17 15:15 Peripheral/Iv Start Blood Culture - Preliminary No Growth After 1 Day Assessment and Plan (1) Sacral fracture, closed Current visit: Yes Status: Acute (2) Frequent falls Current visit: Yes Status: Acute (3) C. difficile colitis Current visit: Yes Status: Acute DVT Prophylaxis: SCD's GI Prophylaxis: other (Prilosec) Resuscitation Status: Do Not Resuscitate Assessment and Plan: Impression C.diff, acute. Hypokalemia, acute. Leukocytosis, acute. Frequent falls Orthostasis- acute Vertigo Sacral fracture Chronic urinary incontinence with frequent UTIs Hypothyroidism OA Plan- 07/09 Maria Del Carmen reports she is feeling much better and has enjoyed her day of rest. Continue to encourage participation in therapies for strengthening and improvement in functional abilities. C. diff diarrhea seems to be improving with less frequency in stools. Low grade temperate noted around 99. WBC increased today to 27.1 (up from 24.9 on ). Continue Flagyl for c.diff treatment. No other signs of alternative infection. Blood cultures negative after 1 day. UA negative on 07/08. CXR showed no acute cardiopulmonary changes. Continue to monitor pulse ox closely and encourage incentive spirometry. Patient given 1L NS last evening in light of orthostasis. Labs today revealed hypokalemia with elevated WBC. Will give NS with KCl 20 at 75cc/hr for hydration and potassium replacement given poor oral intake and recent excessive fluid loss through diarrhea. Recheck orthostatic pressures in AM prior to therapy. Monitor daily weight closely for signs of fluid overload. Will recheck CBC and BMP in Am to monitor blood counts, electrolyses and renal function. Continue scheduled Meclizine TID for dizziness. Miralax discontinued due c.diff and current diarrhea. Plan discussed with attending, Dr. Pascal. - Time spent with patient greater than 35 minutes Hospital Course Summary Disclaimer: The visit summary below is not to be considered part of the above Progress Note. Hospital Course: 07/06/17- initial consultation Impression Frequent falls Vertigo Sacral fracture Chronic urinary incontinence with frequent UTIs Hypothyroidism OA Plan Rehabilitation orders and management as per Dr Kumar Encourage work with PT/OT for strengthening. Maria Del Carmen was living independently prior to admission Continue with Meclizine for dizziness, will schedule 12.5 TID as recommended by Dr. Hairston. Did also consider adding steroids. Montior regular BMP to follow electrolytes. She did have hyponatremia on initial admission. Tylenol as needed for sacral fracture pain. Will attempt to avoid use of narcotics as this may add to dizziness and constipation. Zoloft for chronic depression. MiraLAX for chronic bowel motivation Plan- 07/08 In light of orthostasis and loose stools will check CBC and BMP now. Have nursing staff given 1 Liter of NS to run over 4 hours for hydration Recheck Orthostatic vitals later today following IV fluids Continue scheduled Meclizine TID Recommend holding Miralax given loose stools. Continue to encourage PT/OT for ongoing strengthening Plan discussed with attending, Dr Norris Plan- 07/09 Maria Del Carmen reports she is feeling much better and has enjoyed her day of rest. Continue to encourage participation in therapies for strengthening and improvement in functional abilities. C. diff diarrhea seems to be improving with less frequency in stools. Low grade temperate noted around 99. WBC increased today to 27.1 (up from 24.9 on ). Continue Flagyl for c.diff treatment. No other signs of alternative infection. Blood cultures negative after 1 day. UA negative on 07/08. CXR showed no acute cardiopulmonary changes. Continue to monitor pulse ox closely and encourage incentive spirometry. Patient given 1L NS last evening in light of orthostasis. Labs today revealed hypokalemia with elevated WBC. Will give NS with KCl 20 at 75cc/hr for hydration and potassium replacement given poor oral intake and recent excessive fluid loss through diarrhea. Recheck orthostatic pressures in AM prior to therapy. Monitor daily weight closely for signs of fluid overload. Will recheck CBC and BMP in Am to monitor blood counts, electrolyses and renal function. Continue scheduled Meclizine TID for dizziness. Miralax discontinued due c.diff and current diarrhea. Plan discussed with attending, Dr. Pascal. <Carlos A Pascal - Last Filed: 07/09/17 18:38> Objective Vital signs: Temperature 100.0 F 09/24/17 15:33 Pulse Rate 79 07/09/17 15:33 Respiratory Rate 14 07/09/17 15:33 Blood Pressure 137/62 07/09/17 15:33 Pulse Oximetry 90 07/09/17 15:33 Height/Weight/BMI: Height 1.75 m Weight 59.9 kg Body Mass Index 19.9 Results - Labs CBC & Chem 7: 07/09/17 05:22 07/09/17 05:22 Microbiology Results: Microbiology 07/08/17 15:01 Peripheral/Iv Start Blood Culture - Preliminary No Growth After 1 Day 07/08/17 15:15 Peripheral/Iv Start Blood Culture - Preliminary No Growth After 1 Day Assessment and Plan (1) Sacral fracture, closed Current visit: Yes Status: Acute (2) Frequent falls Current visit: Yes Status: Acute (3) C. difficile colitis Current visit: Yes Status: Acute Assessment and Plan: Impression Sacral fracture C.diff, acute Hypokalemia, acute; Not POA Leukocytosis, acute Frequent falls Orthostasis- acute Vertigo Chronic urinary incontinence with frequent UTIs Hypothyroidism OA Have independently interviewed and examined pt. Chart reviewed. Case discussed with Dr Reynolds (patient's son) and my PA. Care plan developed with my supervision; agree with above. Doing fair. Tired of the diarrhea. Ab cramping and discomfortable. Appetite decreased. Tired of laying on her back. Breathing well. No pain with breathing. No palpitations. Lungs: clear bilaterally CV: regular AB: soft nt/nd +BS MSE: awake alert appropriate Plan: Continue metronidazole for treatment of C diff. Will have Questran prn loose stool and Desitin to help anal irritation as needed. IVF started to help maintain hydration due to increase stool output and decreased oral drive. Monitor lab. Hospital Course Summary Disclaimer: The visit summary below is not to be considered part of the above Progress Note.
[2017-07-09] MEDS: DONEPEZIL 5 MG TABLET PO SCH (21:46)
[2017-07-09] MEDS: ZINC OXIDE 40% (Diaper Rash) OINT. 56gm TP PRN (22:15)
[2017-07-10] MEDS: ZINC OXIDE 40% (Diaper Rash) OINT. 56gm TP PRN ×4 (01:04→14:28)
[2017-07-10] MEDS: NS with KCL 20 mEq 1,000 ML IV SCH ×2 (01:14→14:27)
[2017-07-10] MEDS: ACETAMINOPHEN 500 MG TABLET PO PRN ×2 (04:22→09:16)
[2017-07-10] MEDS: OMEPRAZOLE 20 MG CAPSULE PO SCH (06:42)
[2017-07-10] MEDS: LEVOTHYROXINE 100 MCG TABLET PO SCH (06:43)
[2017-07-10] MEDS: MECLIZINE 12.5 MG TABLET PO SCH ×3 (09:15→19:59)
[2017-07-10] MEDS: FEXOFENADINE 180 MG TABLET PO SCH (09:15)
[2017-07-10] MEDS: MELOXICAM 7.5 MG TABLET PO SCH (09:15)
[2017-07-10] MEDS: MetroNIDAZOLE 250 MG TABLET PO SCH ×4 (09:15→19:59)
[2017-07-10] MEDS: MULTI-VITAMIN + MINERAL TABLET PO SCH (09:16)
[2017-07-10] MEDS: MIRABEGRON 25mg TABLET PO SCH (09:16)
[2017-07-10] MEDS: SERTRALINE 50 MG TABLET PO SCH (09:16)
--- NOTE | 2017-07-10 11:17 | IRU Progress Note ---
- Subjective/Serverity of Illness Mrs. Reynolds develop some hypotension along with leukocytosis over the weekend. She was noted to have C. difficile colitis and was started on Flagyl. She is tolerating this well. She states that her stool frequency has improved. However she continues to be very fatigued. We have held therapy over the weekend and we will hold it 1 more day to day due to fatigue. I discussed with her whether she was getting depressed and/or discouraged. She says that she is not and that she has hope for the future. As mentioned, her frequency of stooling has improved she states. She denies abdominal pain. Her appetite is poor although she denies any metallic taste in her mouth (from the metronidazole). She has had no vomiting but does describe some "nausea" which she says "is in my head." Her vertigo continues to be an issue which is difficult to manage. She continues to be dizzy today she states. She has been afebrile and her white count has improved. Update on medical problems as follows: 1. Episodic severe vertigo: Physical therapy is addressing this with Josafat maneuver and other procedures. Continues to struggle with vertigo. 2. Hyponatremia: Sodium monitored as well as other blood tests. It is stable at the present time. 3. New fracture at S3: We will observe for pain management in this regard. States that pain is adequately controlled at present. 4. Recent urinary tract infection: We will observe for recurrence of this. No current symptoms of UTI noted. 5. Hypokalemia: Potassium down to 3.5 now back to 3.7 after supplementation. Likely this is related to her diarrhea but will need to be monitored carefully. 6. C. difficile colitis: She is on Flagyl in this regard. Her frequency of stooling has improved she states. Exam Vital Signs: Temperature 98.5 F 07/10/17 08:53 Pulse Rate 68 07/10/17 09:30 Respiratory Rate 16 07/10/17 08:53 Blood Pressure 130/73 07/10/17 09:30 Pulse Oximetry 95 07/10/17 08:53 Height/Weight/BMI: Height 1.75 m Weight 59.9 kg Body Mass Index 19.9 Comments: The patient is awake, alert and oriented and in no acute distress. She is easily awakened. However tends to be fatigued appearing. Pupils are equal. The neck is supple. Chest: Clear to auscultation bilaterally. Cor: RR with no gallop, click nor murmur Abd: soft with normo-active bowel sounds. There are no masses, no tenderness and no guarding. Extremities: No edema is noted. . Results IRU - Labs Labs: Have reviewed her stool results as well as lab work including potassium which is now improved. White count improved and 18,000 (was 27,000) IRU A/P (1) Vertigo Current visit: Yes Status: Acute Vertigo continues to be an issue. It comes and goes. However it is quite debilitating. Therapy is addressing. (2) Sacral fracture, closed Qualifiers: Encounter type: initial encounter Zone of sacrum fracture: unspecified portion of sacrum Qualified Code(s): S32.10XA - Unspecified fracture of sacrum , initial encounter for closed fracture Current visit: Yes Status: Acute Pain is adequately controlled. (3) Recurrent UTI (urinary tract infection) Current visit: Yes Status: Resolved (4) Frequent falls Current visit: Yes Status: Acute (5) Memory loss Current visit: Yes Status: Chronic Was recently started on donepezil and seems to tolerate it well. (6) C. difficile colitis Current visit: Yes Status: Acute Remains on Flagyl without known side effects. Stool frequency has improved per patient. (7) Hypokalemia Current visit: Yes Status: Resolved Potassium was 3.5 it is now improved at 3.7. DVT Prophylaxis: SCD's Resuscitation Status: Do Not Resuscitate - Course Hospital Course: Kareem Kumar MD: 07/07/17 11:00 She is adjusting to the rehabilitation milieu well. Continues to have vertigo. This is being addressed. Mini-Mental status exam indicates memory loss so we will start some donepezil. 07/10/17 11:19 She has developed C. difficile colitis. She is on Flagyl. White count was 27, 000 but is now down to 18,000. Remains afebrile. Appetite is reduced but no vomiting noted. Continues to be quite dizzy at times. She is too fatigued today to pursue therapy so we will hold one more day and hopefully can restart tomorrow. - Interventions to Obtain Goals PT Treatment Plan: Balance/Proprioception, Functional Activities, Gait Training , Patient/Family Education, Therapeutic Exercise OT Treatment Plan: ADL (Basic Care), Balance Training, IADL, Pt./Family Education, Ther. Exercise for ADL Goals Progress/Modifications: Time spent with patient and on floor reviewing data and documentin minutes Barriers to dismissal: Vertigo, C. difficile colitis, endurance Medical decision-making: Review data from weekend. Assessed patient and felt as though therapy would not be appropriate today. We will hold therapy 24 hours. Remains on Flagyl with somewhat reduced appetite. Her white count improved.
[2017-07-10] MEDS: DONEPEZIL 5 MG TABLET PO SCH (19:59)
[2017-07-10] MEDS: SALINE FLUSH 10ml SYRINGE IV PRN (20:00)
[2017-07-11] MEDS: NS with KCL 20 mEq 1,000 ML IV SCH ×2 (03:54→18:36)
[2017-07-11] MEDS: LEVOTHYROXINE 100 MCG TABLET PO SCH (06:15)
[2017-07-11] MEDS: OMEPRAZOLE 20 MG CAPSULE PO SCH (06:15)
[2017-07-11] MEDS: FEXOFENADINE 180 MG TABLET PO SCH (08:02)
[2017-07-11] MEDS: MIRABEGRON 25mg TABLET PO SCH (08:03)
[2017-07-11] MEDS: MetroNIDAZOLE 250 MG TABLET PO SCH ×4 (08:03→21:44)
[2017-07-11] MEDS: SERTRALINE 50 MG TABLET PO SCH (08:03)
[2017-07-11] MEDS: MULTI-VITAMIN + MINERAL TABLET PO SCH (08:03)
[2017-07-11] MEDS: MECLIZINE 12.5 MG TABLET PO SCH ×3 (08:03→21:44)
[2017-07-11] MEDS: MELOXICAM 7.5 MG TABLET PO SCH (08:03)
[2017-07-11 08:58] VITALS: BMI 20.2
--- NOTE | 2017-07-11 09:47 | IRU Progress Note ---
- Subjective/Serverity of Illness Mrs. Reynolds continues to struggle with vertigo much of the time. Further discussion by nurse practitioner indicates that in her opinion this could be related to Mnire's disease. There is a fullness in the ear as well as some hearing loss. She apparently was dizzy and then fell rather than the other way around. She denies any nausea or vomiting. However the vertigo is quite debilitating to her. Denies current headaches. With regard to her strength, she is improving. She says that she thinks she camper dissipate with therapy today. Therapy hold will be lifted. Her appetite is improving. Update on medical problems as follows: 1. Episodic severe vertigo: Whether this is Mnire's disease versus benign positional vertigo was not clear. Therapy is working with her in this regard and we will resume therapy today. 2. Hyponatremia: Sodium has normalized at this time. We will continue to monitor periodically. 3. New fracture at S3: We will observe for pain management in this regard. States that pain is adequately controlled at present. 4. Recent urinary tract infection: Denies current symptoms of urinary tract infection. She is afebrile. 5. Hypokalemia: Potassium has now normalized. Hypokalemia likely related to diarrhea. We'll continue to monitor periodically. 6. C. difficile colitis: Continues on Flagyl. Diarrhea frequency has improved. Denies abdominal pain. No blood has been noted. Exam Vital Signs: Temperature 97.9 F 07/11/17 07:41 Pulse Rate 66 07/11/17 07:41 Respiratory Rate 12 07/11/17 07:41 Blood Pressure 152/70 H 07/11/17 07:41 Pulse Oximetry 94 07/11/17 07:41 Height/Weight/BMI: Height 1.75 m Weight 62.1 kg Body Mass Index 20.2 Comments: The patient is awake, alert and oriented and in no acute distress. Pupils are equal. Reports vertigo at present. However I do not observe any definite nystagmus. The neck is supple. Chest: Clear to auscultation bilaterally. Cor: RR with no gallop, click nor murmur Abd: soft with normo-active bowel sounds. There are no masses, no tenderness and no guarding. Extremities: No edema is noted. There are good pulses in both ankles. No cyanosis is present. Results IRU - Labs Labs: Reviewed laboratory including white count improvement. IRU A/P (1) Vertigo Current visit: Yes Status: Acute Questionable Mnire's versus benign positional vertigo. Does not appear to be improving. We are working with therapy in this regard. Remains on meclizine. (2) Sacral fracture, closed Qualifiers: Encounter type: initial encounter Zone of sacrum fracture: unspecified portion of sacrum Qualified Code(s): S32.10XA - Unspecified fracture of sacrum , initial encounter for closed fracture Current visit: Yes Status: Acute She states that the pain is adequately controlled present time. No neurologic changes are noted. (3) Recurrent UTI (urinary tract infection) Current visit: Yes Status: Resolved (4) Frequent falls Current visit: Yes Status: Acute (5) Memory loss Current visit: Yes Status: Chronic Tolerating donepezil. (6) C. difficile colitis Current visit: Yes Status: Acute Remains on Flagyl. Frequency of stooling has improved. (7) Hypokalemia Current visit: Yes Status: Resolved DVT Prophylaxis: SCD's Resuscitation Status: Do Not Resuscitate - Course Hospital Course: Kareem Kumar MD: 07/07/17 11:00 She is adjusting to the rehabilitation milieu well. Continues to have vertigo. This is being addressed. Mini-Mental status exam indicates memory loss so we will start some donepezil. 07/10/17 11:19 She has developed C. difficile colitis. She is on Flagyl. White count was 27, 000 but is now down to 18,000. Remains afebrile. Appetite is reduced but no vomiting noted. Continues to be quite dizzy at times. She is too fatigued today to pursue therapy so we will hold one more day and hopefully can restart tomorrow. 07/11/17 09:48 Therapy has been on hold for 3 days due to fatigue from her C. difficile colitis. We will restart therapy today. Electrolyte abnormalities are improved. Vertigo continues to be a significant barrier. - Interventions to Obtain Goals PT Treatment Plan: Balance/Proprioception, Functional Activities, Gait Training , Patient/Family Education, Therapeutic Exercise OT Treatment Plan: ADL (Basic Care), Balance Training, IADL, Pt./Family Education, Ther. Exercise for ADL Goals Progress/Modifications: Time spent with patient and on floor reviewing data and documentin minutes Barriers to dismissal: Severe vertigo, weakness severe to C. difficile colitis, frequent loose stools. Medical decision-making: I assessed the overall picture. Have discussed with patient and therapy. We will resume therapy today after having held it for several days. In addition, reviewing electrolytes carefully as well as white count.
--- NOTE | 2017-07-11 14:36 | IRU Team Meeting ---
IRU Team Meeting - Nursing Vital Signs: Vital Signs - 24 hr 07/10/17 14:41 07/10/17 20:24 07/11/17 07:41 Temperature 97.1 F 98.3 F 97.9 F Pulse Rate 62 66 66 Respiratory Rate 18 16 12 Blood Pressure 153/68 H 167/73 H 152/70 H Pulse Oximetry 94 95 94 Current Medications: Acetaminophen (Tylenol) 500 mg PO Q4H PRN PRN Reason: Pain Last Admin: 07/10/17 09:16 Dose: 500 mg Cholestyramine Resin (Questran Light) 4 g PO Q6H PRN PRN Reason: Diarrhea Last Admin: 07/09/17 14:30 Dose: 4 g Donepezil HCl (Aricept) 5 mg PO HS [facility] Last Admin: 07/10/17 19:59 Dose: 5 mg Fexofenadine HCl (Nelly) 180 mg PO DAILY [facility] Last Admin: 07/11/17 08:02 Dose: 180 mg Potassium Chloride/Sodium Chloride (Ns With Kcl 20 Meq) 1,000 mls @ 75 mls/hr IV .[id number] [facility] Last Admin: 07/11/17 03:54 Dose: 75 mls/hr Levothyroxine Sodium (Synthroid) 100 mcg PO ACB [facility] Last Admin: 07/11/17 06:15 Dose: 100 mcg Meclizine HCl (Antivert) 12.5 mg PO TID [facility] Last Admin: 07/11/17 08:03 Dose: 12.5 mg Meloxicam (Mobic) 7.5 mg PO WB [facility] Last Admin: 07/11/17 08:03 Dose: 7.5 mg Metronidazole (Flagyl) 250 mg PO WMHS [facility] Last Admin: 07/11/17 11:17 Dose: 250 mg Mirabegron (Myrbetriq) 25 mg PO DAILY [facility] Last Admin: 07/11/17 08:03 Dose: 25 mg Multivitamins/Minerals (Therapeutic - M) 1 tab PO DAILY [facility] Last Admin: 07/11/17 08:03 Dose: 1 tab Omeprazole (Prilosec) 20 mg PO ACB [facility] Last Admin: 07/11/17 06:15 Dose: 20 mg Sertraline HCl (Zoloft) 50 mg PO DAILY [facility] Last Admin: 07/11/17 08:03 Dose: 50 mg Sodium Chloride (Iv Flush) 10 - 80 ml IV PRN PRN PRN Reason: Flushing Last Admin: 07/10/17 20:00 Dose: 10 ml Zinc Oxide (Diaper Rash Ointment) 1 applic TP Q2H PRN PRN Reason: Anal irritation Last Admin: 07/10/17 14:28 Dose: 1 applic Comments: I certify that I personally led the interdisciplinary team meeting and agree with comments, barriers and goals indicated. Team meeting was held in the patient's room with the patient and the following family members present: Son Robb Reynolds by phone. This is Gail has been on therapy hold for 3 days due to severe weakness from her C. difficile colitis. Was having a white count of 27,000. She is back down to 12,000. Her stool frequency has improved and she is tolerating the metronidazole well. Continues to struggle with vertigo. - Dietary She is seen by the dietitian. Offered mighty shakes which she does not prefer at the present time. Appetite previously was worse but is improving according to the patient and according to the dietitian. - Physical Therapy Comments: Due to her 3 day therapy hiatus, therapy is just now getting started working with her today. Efforts were made at working with balance and vertigo resolution as well as strengthening, transfers and ambulation safely. - Occupational Therapy Comments: Due to the three-day hiatus from therapy, occupational therapy is just starting to work with her again. - Goals 1. Ability to walk 75 feet with standby assistance 2. Transfers with standby assistance - Barriers to Discharge Barriers to Attaining Goals: Balance, Endurance, Medical Limitation - Care Plan Anticipated DC Destination: Home, Self Care I have led this team conference and agree with the plan. Anticipated Length of Stay (days): 1 (week)
[2017-07-11] MEDS: DONEPEZIL 5 MG TABLET PO SCH (21:44)
[2017-07-12] MEDS: ZINC OXIDE 40% (Diaper Rash) OINT. 56gm TP PRN ×2 (02:47→21:04)
[2017-07-12] MEDS: LEVOTHYROXINE 100 MCG TABLET PO SCH (07:23)
[2017-07-12] MEDS: OMEPRAZOLE 20 MG CAPSULE PO SCH (07:23)
[2017-07-12] MEDS: NS with KCL 20 mEq 1,000 ML IV SCH ×2 (08:58→23:07)
[2017-07-12] MEDS: MetroNIDAZOLE 250 MG TABLET PO SCH ×4 (09:00→21:03)
[2017-07-12] MEDS: FEXOFENADINE 180 MG TABLET PO SCH (09:00)
[2017-07-12] MEDS: MULTI-VITAMIN + MINERAL TABLET PO SCH (09:00)
[2017-07-12] MEDS: MIRABEGRON 25mg TABLET PO SCH (09:00)
[2017-07-12] MEDS: ACETAMINOPHEN 500 MG TABLET PO PRN ×2 (09:00→21:03)
[2017-07-12] MEDS: MELOXICAM 7.5 MG TABLET PO SCH (09:00)
[2017-07-12] MEDS: MECLIZINE 12.5 MG TABLET PO SCH ×3 (09:01→21:03)
[2017-07-12] MEDS: SERTRALINE 50 MG TABLET PO SCH (09:01)
--- NOTE | 2017-07-12 09:21 | Progress Note ---
Subjective: Mrs Reynolds is seen in follow up this morning while resting in bed. She complains of having pain to bilateral lower extremities and feet. She states a feeling that her feet are "tied down", and that she is unable to move them. She complains of stiffness and achiness bilaterally. She is noted to have 3-4 blankets over her feet on exam. She is able to move her legs and feet with normal sensation to touch however feels some "tingling". Denies other pain or shortness of breath. Objective Vital signs: Temperature 97.3 F 07/12/17 08:00 Pulse Rate 69 07/12/17 08:00 Respiratory Rate 18 07/12/17 08:00 Blood Pressure 160/75 H 07/12/17 08:00 Pulse Oximetry 95 07/12/17 08:00 Height/Weight/BMI: Height 1.75 m Weight 62.1 kg Body Mass Index 20.2 - Constitutional Present: no acute distress, well nourished, well developed - Routine HEENT Exam Eye: Present: EOMI ENT: Present: mucous membranes moist, dentition normal - Routine Respiratory Exam Present: CTA bilaterally. Absent: wheezes - Routine Cardiovascular Exam Present: RRR, S1, S2. Absent: murmur - Routine Abdominal Exam Present: soft, normoactive bowel sounds, non distended. Absent: tenderness - Routine Extremities Exam Present: no edema, pulses intact, normal capillary refill - Routine Back/Spine/Pelvis Exam Comments: Decreased ROM due to lumbar back pain - Routine Skin Exam Present: intact, dry, warm - Routine Neurological Exam Present: alert, oriented X3, CN II-XII intact - Routine Lymphatic Exam Lymphatic: Absent: adenopathy - Routine Psychiatric Exam Present: normal affect Results - Labs CBC & Chem 7: 07/12/17 04:25 07/12/17 04:25 Microbiology Results: Microbiology 07/08/17 15:01 Peripheral/Iv Start Blood Culture - Preliminary No Growth After 3 Days 07/08/17 15:15 Peripheral/Iv Start Blood Culture - Preliminary No Growth After 3 Days Assessment and Plan (1) Sacral fracture, closed Current visit: Yes Status: Acute (2) Frequent falls Current visit: Yes Status: Acute (3) C. difficile colitis Current visit: Yes Status: Acute Assessment and Plan: Impression Sacral fracture C.diff, acute Hypokalemia, acute; Not POA Leukocytosis, acute Frequent falls Orthostasis- acute Vertigo Chronic urinary incontinence with frequent UTIs Hypothyroidism OA Plan Into room to re-examine Maria Del Carmen once up in the chair with PT. Following stretching and spinal therapy she is no longer having tingling or pain in her legs and feet. She states that he "legs came alive". Continue to encourage work with PT/OT for strengthening Continue metronidazole for treatment of C diff. Asked nursing staff to give Questran as she continues to have some loose stools. Leukocytosis continues to normalize. Chemistry panel is normal. Encourage oral intake. Hospital Course Summary Disclaimer: The visit summary below is not to be considered part of the above Progress Note. Hospital Course: 07/06/17- initial consultation Impression Frequent falls Vertigo Sacral fracture Chronic urinary incontinence with frequent UTIs Hypothyroidism OA Plan Rehabilitation orders and management as per Dr Kumar Encourage work with PT/OT for strengthening. Maria Del Carmen was living independently prior to admission Continue with Meclizine for dizziness, will schedule 12.5 TID as recommended by Dr. Hairston. Did also consider adding steroids. Montior regular BMP to follow electrolytes. She did have hyponatremia on initial admission. Tylenol as needed for sacral fracture pain. Will attempt to avoid use of narcotics as this may add to dizziness and constipation. Zoloft for chronic depression. MiraLAX for chronic bowel motivation Plan- 07/08 In light of orthostasis and loose stools will check CBC and BMP now. Have nursing staff given 1 Liter of NS to run over 4 hours for hydration Recheck Orthostatic vitals later today following IV fluids Continue scheduled Meclizine TID Recommend holding Miralax given loose stools. Continue to encourage PT/OT for ongoing strengthening Plan discussed with attending, Dr Norris Plan- 07/09 Maria Del Carmen reports she is feeling much better and has enjoyed her day of rest. Continue to encourage participation in therapies for strengthening and improvement in functional abilities. C. diff diarrhea seems to be improving with less frequency in stools. Low grade temperate noted around 99. WBC increased today to 27.1 (up from 24.9 on ). Continue Flagyl for c.diff treatment. No other signs of alternative infection. Blood cultures negative after 1 day. UA negative on 07/08. CXR showed no acute cardiopulmonary changes. Continue to monitor pulse ox closely and encourage incentive spirometry. Patient given 1L NS last evening in light of orthostasis. Labs today revealed hypokalemia with elevated WBC. Will give NS with KCl 20 at 75cc/hr for hydration and potassium replacement given poor oral intake and recent excessive fluid loss through diarrhea. Recheck orthostatic pressures in AM prior to therapy. Monitor daily weight closely for signs of fluid overload. Will recheck CBC and BMP in Am to monitor blood counts, electrolyses and renal function. Continue scheduled Meclizine TID for dizziness. Miralax discontinued due c.diff and current diarrhea. Plan discussed with attending, Dr. Pascal. 07/12/17 Plan Into room to re-examine Maria Del Carmen once up in the chair with PT. Following stretching and spinal therapy she is no longer having tingling or pain in her legs and feet. She states that he "legs came alive". Continue to encourage work with PT/OT for strengthening Continue metronidazole for treatment of C diff. Asked nursing staff to give Questran as she continues to have some loose stools. Leukocytosis continues to normalize. Chemistry panel is normal. Encourage oral intake.
--- NOTE | 2017-07-12 10:12 | IRU Progress Note ---
- Subjective/Serverity of Illness Mrs. Reynolds was able to tolerate therapy well yesterday. She states that in the middle of the night or perhaps early this morning she suddenly felt week. In particular her legs felt tight, heavy and "tied down." Uncertain if there was true numbness or tingling. However when she moved about she did improve. No longer has those sensations. Obviously this is concerning for spinal stenosis. Interestingly, she specifically states that her arms did not feel that way. She does have evidence of lumbar spinal stenosis apparently on previous scans. We will observe this carefully. If this returns on a regular basis, she will need to have further evaluation of cervical spine done. I am not certain that she would want to have surgery in the event of severe spinal stenosis however. With regard to her dizziness, she continues to struggle with vertigo. She does have a lot of neck muscle tightness. Therapy is working with her and she is cooperative. Her appetite remains poor. I wonder how much of this may be related to the metronidazole however. With regard to her stools, these are improving. Remains on metronidazole for C. difficile colitis. Denies any nausea or vomiting and denies abdominal pain. Update on medical problems as follows: 1. Episodic severe vertigo: I started working with therapy. She is cooperative. A lot of neck muscle tightness noted. She is encouraged to do the exercises even without therapy there (with regard to the vertigo, head movement , eye movement etc.). 2. Hyponatremia: Sodium has normalized at this time. We will continue to monitor periodically. 3. New fracture at S3: Denies any new symptoms in this area. Denies pain. 4. Recent urinary tract infection: Denies current symptoms of urinary tract infection. She is afebrile. 5. Hypokalemia: We will continue to monitor this periodically. 6. C. difficile colitis: Remains on metronidazole. Frequency of stools has improved. 7. Leg heaviness and possible numbness/tingling: At one point she states this is a new symptom and at another time she indicates she has had this before. It occurred transiently while she was in bed this morning. [place] weak. Uncertain etiology but we are concerned about spinal stenosis. States that arms and hands were not involved with the weakness or numbness or tingling. We will observe this and if it continues we'll need to repeat scan and consider cervical spine MRI. Exam Vital Signs: Temperature 97.3 F 07/12/17 08:00 Pulse Rate 69 07/12/17 08:00 Respiratory Rate 18 07/12/17 08:00 Blood Pressure 160/75 H 07/12/17 08:00 Pulse Oximetry 95 07/12/17 08:00 Height/Weight/BMI: Height 1.75 m Weight 62.1 kg Body Mass Index 20.2 Comments: The patient is awake, alert and oriented and in no acute distress. She is conversant although appears to be subdued or depressed. I do not see nystagmus at present. The neck is a bit tight. Therapy working with her in this regard. Chest: Clear to auscultation bilaterally. Cor: RR with no gallop, but does have a murmur. Abd: soft with normo-active bowel sounds. There are no masses, no tenderness and no guarding. Extremities: No edema is noted. There are good pulses in both ankles. No cyanosis is present. Neurologically she seems to be intact. After encouragement, she was able to flex and extend her knees reasonably well. No definite weakness is noted. Upper extremity strength appears to be adequate. There is no unilateral weakness. No facial droop. Results IRU - Labs Labs: Reviewed labs. IRU A/P (1) Vertigo Current visit: Yes Status: Acute This continues to be a major issue for her. It continues to be episodic but severe. She is cooperating with therapy and hopefully can make some progress. (2) Sacral fracture, closed Qualifiers: Encounter type: initial encounter Zone of sacrum fracture: unspecified portion of sacrum Qualified Code(s): S32.10XA - Unspecified fracture of sacrum , initial encounter for closed fracture Current visit: Yes Status: Acute Reports that her pain is not an issue. (3) Recurrent UTI (urinary tract infection) Current visit: Yes Status: Resolved (4) Frequent falls Current visit: Yes Status: Acute (5) Memory loss Current visit: Yes Status: Chronic (6) C. difficile colitis Current visit: Yes Status: Acute Remains on metronidazole. Stool frequency improved. No abdominal cramping and no blood is been noted. White count has improved. (7) Hypokalemia Current visit: Yes Status: Resolved (8) Leg weakness, bilateral Current visit: Yes Status: Acute Please see above discussion. She now reports an episode of bilateral lower extremity weakness and heaviness. It is not clear to me if she truly had numbness or tingling. Nevertheless this has resolved. Neurologically she is intact. We will reassess this and if this is a recurring issue we will check a cervical spine MRI. However the arms and hands were not involved. DVT Prophylaxis: SCD's Resuscitation Status: Do Not Resuscitate - Course Hospital Course: Kareem Kumar MD: 07/07/17 11:00 She is adjusting to the rehabilitation milieu well. Continues to have vertigo. This is being addressed. Mini-Mental status exam indicates memory loss so we will start some donepezil. 07/10/17 11:19 She has developed C. difficile colitis. She is on Flagyl. White count was 27, 000 but is now down to 18,000. Remains afebrile. Appetite is reduced but no vomiting noted. Continues to be quite dizzy at times. She is too fatigued today to pursue therapy so we will hold one more day and hopefully can restart tomorrow. 07/11/17 09:48 Therapy has been on hold for 3 days due to fatigue from her C. difficile colitis. We will restart therapy today. Electrolyte abnormalities are improved. Vertigo continues to be a significant barrier. 07/12/17 10:19 Tolerated therapy well yesterday. Continues to struggle with vertigo. Had leg weakness today of uncertain cause. Please see above discussion. Have discussed with hospitalists. Diarrhea is improved with regard to the C. difficile colitis. - Interventions to Obtain Goals PT Treatment Plan: Balance/Proprioception, Functional Activities, Gait Training , Patient/Family Education, Therapeutic Exercise OT Treatment Plan: ADL (Basic Care), Balance Training, IADL, Pt./Family Education, Ther. Exercise for ADL Goals Progress/Modifications: Time spent with patient and on floor reviewing data and documentin minutes Barriers to dismissal: Severe vertigo, safety issues, balance Medical decision-making: Discussed with hospitalist service issue of the leg weakness. Arms and hands were not involved which would tend to point more toward a lumbar spinal stenosis. She apparently does have evidence of this on the previous scan. However the incident did resolve. We will monitor carefully. If it recurs may need to have cervical spine scanned as well. However, as noted above, I am not totally certain that she would want to have intervention with regard to surgery. Her diarrhea is improved. Remains on metronidazole.
[2017-07-12] MEDS: CHOLESTYRAMINE LIGHT 4 G PACKET PO PRN ×2 (11:01→21:06)
[2017-07-12] MEDS: DONEPEZIL 5 MG TABLET PO SCH (21:03)
[2017-07-13] MEDS: ACETAMINOPHEN 500 MG TABLET PO PRN ×2 (06:00→20:28)
[2017-07-13] MEDS: OMEPRAZOLE 20 MG CAPSULE PO SCH (06:00)
[2017-07-13] MEDS: LEVOTHYROXINE 100 MCG TABLET PO SCH (06:01)
[2017-07-13] MEDS: MIRABEGRON 25mg TABLET PO SCH (08:36)
[2017-07-13] MEDS: SERTRALINE 50 MG TABLET PO SCH (08:36)
[2017-07-13] MEDS: CHOLESTYRAMINE LIGHT 4 G PACKET PO PRN ×3 (08:36→20:28)
[2017-07-13] MEDS: MULTI-VITAMIN + MINERAL TABLET PO SCH (08:37)
[2017-07-13] MEDS: MELOXICAM 7.5 MG TABLET PO SCH (08:37)
[2017-07-13] MEDS: FEXOFENADINE 180 MG TABLET PO SCH (08:37)
[2017-07-13] MEDS: MetroNIDAZOLE 250 MG TABLET PO SCH ×4 (08:37→20:28)
[2017-07-13] MEDS: MECLIZINE 12.5 MG TABLET PO SCH ×3 (08:37→20:28)
[2017-07-13] MEDS: LACTOBACILLUS (15B cfu) CAPSULE PO SCH ×2 (12:29→16:47)
[2017-07-13] MEDS: DONEPEZIL 5 MG TABLET PO SCH (20:28)
[2017-07-14] MEDS: LEVOTHYROXINE 100 MCG TABLET PO SCH ×2 (04:49→07:02)
[2017-07-14] MEDS: ACETAMINOPHEN 500 MG TABLET PO PRN ×2 (04:50→09:24)
[2017-07-14] MEDS: OMEPRAZOLE 20 MG CAPSULE PO SCH ×2 (04:50→07:02)
[2017-07-14] MEDS ORDERED: ONDANSETRON ODT 4 MG TABLET PO PRN (05:03)
[2017-07-14] MEDS: CHOLESTYRAMINE LIGHT 4 G PACKET PO PRN ×2 (07:26→21:23)
[2017-07-14] MEDS: FEXOFENADINE 180 MG TABLET PO SCH (09:15)
[2017-07-14] MEDS: MECLIZINE 12.5 MG TABLET PO SCH ×3 (09:15→21:24)
[2017-07-14] MEDS: MULTI-VITAMIN + MINERAL TABLET PO SCH (09:15)
[2017-07-14] MEDS: SALINE FLUSH 10ml SYRINGE IV PRN ×2 (09:15→22:21)
[2017-07-14] MEDS: LACTOBACILLUS (15B cfu) CAPSULE PO SCH ×3 (09:15→18:04)
[2017-07-14] MEDS: MIRABEGRON 25mg TABLET PO SCH (09:15)
[2017-07-14] MEDS: MetroNIDAZOLE 250 MG TABLET PO SCH ×4 (09:15→21:24)
[2017-07-14] MEDS: MELOXICAM 7.5 MG TABLET PO SCH (09:16)
[2017-07-14] MEDS: SERTRALINE 50 MG TABLET PO SCH (09:17)
[2017-07-14] MEDS: NS with KCL 20 mEq 1,000 ML IV SCH (10:38)
--- NOTE | 2017-07-14 11:37 | IRU Progress Note ---
- Subjective/Serverity of Illness Mrs. Reynolds was evaluated in her room today. She says that she had a good day yesterday with less dizziness. However she awakened this morning with more vertigo. This fairly rapidly resolved and seems to be improved with mobilization of tight neck muscles by therapy. Denies any nausea or vomiting. Reports that her appetite well in general is not great, is stable and not worsening. She is able to eat. With regard to her C. difficile colitis, frequency of stooling continues to improve. She says that she had about 4 bowel movements yesterday none of which were terribly loose. Update on medical problems as follows: 1. Episodic severe vertigo: As noted above she had an episode this morning. She remains on meclizine. She is doing her exercises even without therapy there which I encouraged her to do (eye-movement and had movement only). 2. Hyponatremia: Sodium continues to be normal at this time. 3. New fracture at S3: Denies any new symptoms in this area. Denies pain. The issue of osteoporosis did arise. She has not been seen by urinary physician yet so we do not know she has had a bone density study or not. This will need to be followed up as an outpatient. 4. Recent urinary tract infection: Denies current symptoms of urinary tract infection. She is afebrile. Remains without symptoms. 5. Hypokalemia: Potassium remains normal. 6. C. difficile colitis: Consistency of stools is improving as well as frequency. 7. Leg heaviness and possible numbness/tingling: She has had no further reports of leg heaviness and numbness tingling. We will continue to monitor this. Exam Vital Signs: Temperature 95.3 F L 07/14/17 07:39 Pulse Rate 74 07/14/17 07:39 Respiratory Rate 16 07/14/17 07:39 Blood Pressure 121/67 07/14/17 07:39 Pulse Oximetry 94 07/14/17 07:39 Height/Weight/BMI: Height 1.75 m Weight 62.2 kg Body Mass Index 20.2 Comments: The patient is awake, alert and oriented and in no acute distress. Seems to be much more alert and "brighter" today. Pupils are equal. The neck is supple. Chest: Clear to auscultation bilaterally. Cor: RR with no gallop, systolic murmur present. Abd: soft with normo-active bowel sounds. There are no masses, no tenderness and no guarding. Results IRU - Labs Labs: Reviewed lab. White count hovering about the same to perhaps slightly worse at 12,000. IRU A/P (1) Vertigo Current visit: Yes Status: Acute Continues to struggle with severe intermittent vertigo. Therapy is working with her. She thinks she is improving. Remains on meclizine. (2) Sacral fracture, closed Qualifiers: Encounter type: initial encounter Zone of sacrum fracture: unspecified portion of sacrum Qualified Code(s): S32.10XA - Unspecified fracture of sacrum , initial encounter for closed fracture Current visit: Yes Status: Acute Sacral fracture raises the issue of osteoporosis. We have checked with the patient's primary care physician. However she has not seen them quite yet and we will need to follow-up on this as an outpatient. (3) Recurrent UTI (urinary tract infection) Current visit: Yes Status: Resolved Has had no further symptoms of UTI. (4) Frequent falls Current visit: Yes Status: Acute (5) Memory loss Current visit: Yes Status: Chronic (6) C. difficile colitis Current visit: Yes Status: Acute She remains on metronidazole without known side effects. Frequency of stooling and consistency of stooling is improved. (7) Hypokalemia Current visit: Yes Status: Resolved (8) Leg weakness, bilateral Current visit: Yes Status: Acute No recurrence of her leg weakness is reported at this time. DVT Prophylaxis: SCD's Resuscitation Status: Do Not Resuscitate - Course Hospital Course: Kareem Kumar MD: 07/07/17 11:00 She is adjusting to the rehabilitation milieu well. Continues to have vertigo. This is being addressed. Mini-Mental status exam indicates memory loss so we will start some donepezil. 07/10/17 11:19 She has developed C. difficile colitis. She is on Flagyl. White count was 27, 000 but is now down to 18,000. Remains afebrile. Appetite is reduced but no vomiting noted. Continues to be quite dizzy at times. She is too fatigued today to pursue therapy so we will hold one more day and hopefully can restart tomorrow. 07/11/17 09:48 Therapy has been on hold for 3 days due to fatigue from her C. difficile colitis. We will restart therapy today. Electrolyte abnormalities are improved. Vertigo continues to be a significant barrier. 07/12/17 10:19 Tolerated therapy well yesterday. Continues to struggle with vertigo. Had leg weakness today of uncertain cause. Please see above discussion. Have discussed with hospitalists. Diarrhea is improved with regard to the C. difficile colitis. 07/14/17 11:39 Patient is making progress with therapies. Does have episodes of severe vertigo. Leg weakness no longer present. Colitis improving and remains on metronidazole. - Interventions to Obtain Goals PT Treatment Plan: Balance/Proprioception, Functional Activities, Gait Training , Patient/Family Education, Therapeutic Exercise OT Treatment Plan: ADL (Basic Care), Balance Training, IADL, Pt./Family Education, Ther. Exercise for ADL Goals Progress/Modifications: Time spent with patient and on floor reviewing data and documentin min Barriers to dismissal: Episodic vertigo, frequent bowel movements, endurance Medical decision-making: Continuing the metronidazole for the time being. Her frequency of stooling has improved. White count noted to be a bit elevated today at 12,000. No other evidence of infection at present. She continues to have a lot of vertigo but perhaps is improving with neck muscle mobilization. Remains on meclizine.
[2017-07-14] MEDS: ZINC OXIDE 40% (Diaper Rash) OINT. 56gm TP PRN (21:24)
[2017-07-14] MEDS: DONEPEZIL 5 MG TABLET PO SCH (21:24)
[2017-07-15] MEDS: ACETAMINOPHEN 500 MG TABLET PO PRN ×2 (02:56→20:39)
[2017-07-15] MEDS: OMEPRAZOLE 20 MG CAPSULE PO SCH (06:44)
[2017-07-15] MEDS: LEVOTHYROXINE 100 MCG TABLET PO SCH (06:44)
[2017-07-15] MEDS: LACTOBACILLUS (15B cfu) CAPSULE PO SCH ×3 (09:52→17:52)
[2017-07-15] MEDS: MECLIZINE 12.5 MG TABLET PO SCH ×3 (09:53→20:39)
[2017-07-15] MEDS: MULTI-VITAMIN + MINERAL TABLET PO SCH (09:53)
[2017-07-15] MEDS: MELOXICAM 7.5 MG TABLET PO SCH (09:53)
[2017-07-15] MEDS: MIRABEGRON 25mg TABLET PO SCH (09:53)
[2017-07-15] MEDS: SERTRALINE 50 MG TABLET PO SCH (09:53)
[2017-07-15] MEDS: MetroNIDAZOLE 250 MG TABLET PO SCH ×4 (09:53→20:39)
[2017-07-15] MEDS: FEXOFENADINE 180 MG TABLET PO SCH (09:54)
[2017-07-15] MEDS: CHOLESTYRAMINE LIGHT 4 G PACKET PO PRN ×2 (09:54→12:24)
[2017-07-15] MEDS: SALINE FLUSH 10ml SYRINGE IV PRN (20:39)
[2017-07-15] MEDS: DONEPEZIL 5 MG TABLET PO SCH (20:39)
[2017-07-16] MEDS: LEVOTHYROXINE 100 MCG TABLET PO SCH ×2 (05:08→08:27)
[2017-07-16] MEDS: OMEPRAZOLE 20 MG CAPSULE PO SCH ×2 (05:08→08:27)
[2017-07-16] MEDS ORDERED: INFLUENZA VAC. INJ. ADMIN CHARGE INJ ONE (06:32)
[2017-07-16] MEDS: CHOLESTYRAMINE LIGHT 4 G PACKET PO PRN (09:43)
[2017-07-16] MEDS: LACTOBACILLUS (15B cfu) CAPSULE PO SCH ×3 (09:43→17:52)
[2017-07-16] MEDS: SALINE FLUSH 10ml SYRINGE IV PRN ×2 (09:43→15:11)
[2017-07-16] MEDS: MIRABEGRON 25mg TABLET PO SCH (09:44)
[2017-07-16] MEDS: MULTI-VITAMIN + MINERAL TABLET PO SCH (09:44)
[2017-07-16] MEDS: MetroNIDAZOLE 250 MG TABLET PO SCH ×2 (09:44→13:19)
[2017-07-16] MEDS: SERTRALINE 50 MG TABLET PO SCH (09:44)
[2017-07-16] MEDS: MECLIZINE 12.5 MG TABLET PO SCH ×3 (09:44→20:35)
[2017-07-16] MEDS: FEXOFENADINE 180 MG TABLET PO SCH (09:44)
[2017-07-16] MEDS: MELOXICAM 7.5 MG TABLET PO SCH (09:44)
[2017-07-16] MEDS ORDERED: INFLUENZA VAC High Dose 2017-18 (Fluzone HD*) (>=65yo) 0.5ml IM ONE (10:33)
[2017-07-16] MEDS: ZINC OXIDE 40% (Diaper Rash) OINT. 56gm TP PRN (15:11)
--- NOTE | 2017-07-16 16:02 | Progress Note ---
Subjective: Mrs. Reynolds is seen today in follow up. She is feeling much better. Reports that she is very motivated to return home, and is hoping that this will be possible. She is "working her arms and legs" as much as she can. She reports loose stool is slowing overall. She is requiring less help to get up. Chart is reviewed for collateral information. Objective Vital signs: Temperature 97.7 F 07/16/17 15:11 Pulse Rate 67 07/16/17 15:11 Respiratory Rate 16 07/16/17 15:11 Blood Pressure 169/74 H 07/16/17 15:11 Pulse Oximetry 95 07/16/17 15:11 Height/Weight/BMI: Height 1.75 m Weight 61.9 kg Body Mass Index 20.2 - Constitutional Present: no acute distress, well nourished, well developed, average body habitus , cooperative - Routine HEENT Exam Head: Present: normocephalic, atraumatic Eye: Present: EOMI, PERRL ENT: Present: mucous membranes moist - Routine Respiratory Exam Present: accessory muscle use, CTA bilaterally. Absent: rales, rhonchi, crackles - Routine Cardiovascular Exam Present: RRR, S1, S2, no murmur - Routine Abdominal Exam Present: soft, normoactive bowel sounds, non distended, non tender - Routine Extremities Exam Present: no edema - Routine Musculoskeletal Exam Musculoskeletal: Present: no clubbing or cyanosis, no tenderness, moving extremities well - Routine Skin Exam Present: intact, dry, warm - Routine Neurological Exam Present: alert, oriented X3, moving all extremities - Routine Psychiatric Exam Present: normal affect, normal thought process, cooperative, good insight Results - Labs CBC & Chem 7: 07/14/17 04:37 07/14/17 04:37 Microbiology Results: Microbiology 07/08/17 15:01 Peripheral/Iv Start Blood Culture - Final No Growth After 5 Days 07/08/17 15:15 Peripheral/Iv Start Blood Culture - Final No Growth After 5 Days Assessment and Plan (1) Sacral fracture, closed Current visit: Yes Status: Acute (2) Frequent falls Current visit: Yes Status: Acute (3) C. difficile colitis Current visit: Yes Status: Acute DVT Prophylaxis: SCD's Resuscitation Status: Do Not Resuscitate Assessment and Plan: Impression Sacral fracture C.diff, acute Hypokalemia, acute; Not POA Leukocytosis, acute Frequent falls Orthostasis- acute Vertigo Chronic urinary incontinence with frequent UTIs Hypothyroidism OA Plan 07/16/17 Patient is slowly improving. Prior c/o neuropathic limb sx- check Ferritin, Iron, B vitamins. need to target Ferritin of around 30-50 if low. (can contribute to neuropathy) Continue treatment for C.Diff- her weight count remains elevated, up a bit today. Will increase Flagyl to 500mg PO TID. Stop PPI due to known C.Diff. If leukocytosis persists, consider adding oral Vanco. BP is running a bit high- may need to treat if persists. Recheck labs in AM for stability. Continue PT/OT. Pt is hoping to return home with help. Very motivated. - Time spent with patient Time with patient PN: 30 minutes Hospital Course Summary Disclaimer: The visit summary below is not to be considered part of the above Progress Note. Hospital Course: 07/06/17- initial consultation Impression Frequent falls Vertigo Sacral fracture Chronic urinary incontinence with frequent UTIs Hypothyroidism OA Plan Rehabilitation orders and management as per Dr Kumar Encourage work with PT/OT for strengthening. Maria Del Carmen was living independently prior to admission Continue with Meclizine for dizziness, will schedule 12.5 TID as recommended by Dr. Hairston. Did also consider adding steroids. Montior regular BMP to follow electrolytes. She did have hyponatremia on initial admission. Tylenol as needed for sacral fracture pain. Will attempt to avoid use of narcotics as this may add to dizziness and constipation. Zoloft for chronic depression. MiraLAX for chronic bowel motivation Plan- 07/08 In light of orthostasis and loose stools will check CBC and BMP now. Have nursing staff given 1 Liter of NS to run over 4 hours for hydration Recheck Orthostatic vitals later today following IV fluids Continue scheduled Meclizine TID Recommend holding Miralax given loose stools. Continue to encourage PT/OT for ongoing strengthening Plan discussed with attending, Dr Norris Plan- 07/09 Maria Del Carmen reports she is feeling much better and has enjoyed her day of rest. Continue to encourage participation in therapies for strengthening and improvement in functional abilities. C. diff diarrhea seems to be improving with less frequency in stools. Low grade temperate noted around 99. WBC increased today to 27.1 (up from 24.9 on ). Continue Flagyl for c.diff treatment. No other signs of alternative infection. Blood cultures negative after 1 day. UA negative on 07/08. CXR showed no acute cardiopulmonary changes. Continue to monitor pulse ox closely and encourage incentive spirometry. Patient given 1L NS last evening in light of orthostasis. Labs today revealed hypokalemia with elevated WBC. Will give NS with KCl 20 at 75cc/hr for hydration and potassium replacement given poor oral intake and recent excessive fluid loss through diarrhea. Recheck orthostatic pressures in AM prior to therapy. Monitor daily weight closely for signs of fluid overload. Will recheck CBC and BMP in Am to monitor blood counts, electrolyses and renal function. Continue scheduled Meclizine TID for dizziness. Miralax discontinued due c.diff and current diarrhea. Plan discussed with attending, Dr. Pascal. 07/12/17 Plan Into room to re-examine Maria Del Carmen once up in the chair with PT. Following stretching and spinal therapy she is no longer having tingling or pain in her legs and feet. She states that he "legs came alive". Continue to encourage work with PT/OT for strengthening Continue metronidazole for treatment of C diff. Asked nursing staff to give Questran as she continues to have some loose stools. Leukocytosis continues to normalize. Chemistry panel is normal. Encourage oral intake. 07/16/17 16:09 07/16/17 Patient is slowly improving. Prior c/o neuropathic limb sx- check Ferritin, Iron, B vitamins. need to target Ferritin of around 30-50 if low. (can contribute to neuropathy) Continue treatment for C.Diff- her weight count remains elevated, up a bit today. Will increase Flagyl to 500mg PO TID. If leukocytosis persists, consider adding oral Vanco. BP is running a bit high- may need to treat if persists. Recheck labs in AM for stability. Continue PT/OT. Pt is hoping to return home with help. Very motivated.
[2017-07-16] MEDS ORDERED: MetroNIDAZOLE 250 MG TABLET PO SCH (17:30)
[2017-07-16] MEDS: DONEPEZIL 5 MG TABLET PO SCH (20:35)
[2017-07-17] MEDS: LEVOTHYROXINE 100 MCG TABLET PO SCH (06:05)
[2017-07-17] MEDS: MULTI-VITAMIN + MINERAL TABLET PO SCH (09:41)
[2017-07-17] MEDS: MECLIZINE 12.5 MG TABLET PO SCH ×3 (09:41→20:42)
[2017-07-17] MEDS: MIRABEGRON 25mg TABLET PO SCH (09:41)
[2017-07-17] MEDS: FEXOFENADINE 180 MG TABLET PO SCH (09:41)
[2017-07-17] MEDS: SERTRALINE 50 MG TABLET PO SCH (09:41)
[2017-07-17] MEDS: CHOLESTYRAMINE LIGHT 4 G PACKET PO PRN ×2 (09:41→20:42)
[2017-07-17] MEDS: MELOXICAM 7.5 MG TABLET PO SCH (09:41)
[2017-07-17] MEDS: LACTOBACILLUS (15B cfu) CAPSULE PO SCH ×3 (09:42→17:33)
[2017-07-17] MEDS: CYANOCOBALAMIN (B-12) 500mcg TABLET PO SCH (09:48)
[2017-07-17] MEDS: MetroNIDAZOLE 500 MG TABLET PO SCH ×3 (09:49→17:33)
--- NOTE | 2017-07-17 10:43 | IRU Progress Note ---
- Subjective/Serverity of Illness Ms. Reynolds continues to work with therapy and is making improvement. She is improving with regard to grooming, bathing and dressing. She continues to struggle with episodes of vertigo although she states these are less intense and less frequent. She is doing her exercises she states. She reports that her appetite is improved and she has more strength. She denies any chest pain or shortness of breath. She reports that her bowels are firming up and are less frequent. Was seen over the weekend by the hospitalist. White count was elevated. Flagyl was increased to 5 mg 3 times daily. Current white count is improved and is normal. Update on medical problems as follows: 1. Episodic severe vertigo: She reports that her vertigo is less intense and less frequent. Occurs if she moves her head or eyes she states. She continues to report that she is doing her exercises. 2. Hyponatremia: Sodium continues to be normal at this time. 3. New fracture at S3: She denies pain in the sacral area present. 4. Recent urinary tract infection: Antibody were discontinued some time ago and she has no new symptoms. 5. Hypokalemia: Potassium remains normal. 6. C. difficile colitis: Consistency of stools is improving as well as frequency. Metronidazole was increased to 500 mg 3 times daily. Repeat white count is now normal. 7. Leg heaviness and possible numbness/tingling: She has had no recurrence of the symptoms. Exam Vital Signs: Temperature 98.3 F 07/17/17 10:28 Pulse Rate 75 07/17/17 10:28 Respiratory Rate 18 07/17/17 10:28 Blood Pressure 129/66 07/17/17 10:28 Pulse Oximetry 97 07/17/17 10:28 Height/Weight/BMI: Height 1.75 m Weight 60.2 kg Body Mass Index 20.2 Comments: The patient is awake, alert and oriented and in no acute distress. She is much more alert and animated today. She is eating a good breakfast. Pupils are equal. The neck is supple. Chest: Clear to auscultation bilaterally. Cor: RR with no gallop, click. Has a grade 2/6 systolic murmur left sternal border. Abd: soft with normo-active bowel sounds. There are no masses, no tenderness and no guarding. Extremities: No edema is noted. There are good pulses in both ankles. No cyanosis is present. Neurologically she is intact. Has good strength bilaterally. I do not see nystagmus at present. Results IRU - Labs Labs: Reviewed laboratory which is now normal. Reviewed other progress notes. IRU A/P (1) Vertigo Current visit: Yes Status: Acute Continues to have episodes of vertigo but these seem to be abating a bit. She remains on meclizine as needed. She is doing her exercises. Etiology likely benign positional vertigo although cannot rule out Mnire's. (2) Sacral fracture, closed Qualifiers: Encounter type: initial encounter Zone of sacrum fracture: unspecified portion of sacrum Qualified Code(s): S32.10XA - Unspecified fracture of sacrum , initial encounter for closed fracture Current visit: Yes Status: Acute Pain is adequately controlled. (3) Recurrent UTI (urinary tract infection) Current visit: Yes Status: Resolved (4) Frequent falls Current visit: Yes Status: Acute (5) Memory loss Current visit: Yes Status: Chronic (6) C. difficile colitis Current visit: Yes Status: Acute Her white count has now improved to normal. Metronidazole was increased to 5 mg 3 times daily. (7) Hypokalemia Current visit: Yes Status: Resolved (8) Leg weakness, bilateral Current visit: Yes Status: Acute DVT Prophylaxis: SCD's Resuscitation Status: Do Not Resuscitate - Course Hospital Course: Kareem Kumar MD: 07/07/17 11:00 She is adjusting to the rehabilitation milieu well. Continues to have vertigo. This is being addressed. Mini-Mental status exam indicates memory loss so we will start some donepezil. 07/10/17 11:19 She has developed C. difficile colitis. She is on Flagyl. White count was 27, 000 but is now down to 18,000. Remains afebrile. Appetite is reduced but no vomiting noted. Continues to be quite dizzy at times. She is too fatigued today to pursue therapy so we will hold one more day and hopefully can restart tomorrow. 07/11/17 09:48 Therapy has been on hold for 3 days due to fatigue from her C. difficile colitis. We will restart therapy today. Electrolyte abnormalities are improved. Vertigo continues to be a significant barrier. 07/12/17 10:19 Tolerated therapy well yesterday. Continues to struggle with vertigo. Had leg weakness today of uncertain cause. Please see above discussion. Have discussed with hospitalists. Diarrhea is improved with regard to the C. difficile colitis. 07/14/17 11:39 Patient is making progress with therapies. Does have episodes of severe vertigo. Leg weakness no longer present. Colitis improving and remains on metronidazole. 07/17/17 10:43 Continues to improve with therapies. Therapy notes reviewed. Vertigo seems to be less intense and less frequent. She reports that her bowels are more well formed. Metronidazole was increased over the weekend to 500 mg 3 times daily due to leukocytosis. White count is now normal. - Interventions to Obtain Goals PT Treatment Plan: Balance/Proprioception, Functional Activities, Gait Training , Patient/Family Education, Therapeutic Exercise OT Treatment Plan: ADL (Basic Care), Balance Training, IADL, Pt./Family Education, Ther. Exercise for ADL Goals Progress/Modifications: Time spent with patient and on floor reviewing data and documentin minutes Barriers to dismissal: Endurance, strength, recurrent vertigo Medical decision-making: We will continue working with therapy with her. Discussed with the patient the issue of isolation. Told her that it was for "duration of illness". Her stools have slowed down although metronidazole was just increased this weekend. We'll continue to work with the hospitalist and infection control this regard. Multiple issues were reviewed as noted in the history of present illness.
[2017-07-17] MEDS: SALINE FLUSH 10ml SYRINGE IV PRN ×2 (15:15→20:46)
[2017-07-17] MEDS: DONEPEZIL 5 MG TABLET PO SCH (20:42)
[2017-07-17] MEDS: ACETAMINOPHEN 500 MG TABLET PO PRN (22:22)
[2017-07-18] MEDS: LEVOTHYROXINE 100 MCG TABLET PO SCH ×2 (05:28→20:27)
[2017-07-18] MEDS: MULTI-VITAMIN + MINERAL TABLET PO SCH (08:04)
[2017-07-18] MEDS: MELOXICAM 7.5 MG TABLET PO SCH (08:04)
[2017-07-18] MEDS: CYANOCOBALAMIN (B-12) 500mcg TABLET PO SCH (08:04)
[2017-07-18] MEDS: FEXOFENADINE 180 MG TABLET PO SCH (08:04)
[2017-07-18] MEDS: MIRABEGRON 25mg TABLET PO SCH (08:04)
[2017-07-18] MEDS: SERTRALINE 50 MG TABLET PO SCH (08:05)
[2017-07-18] MEDS: LACTOBACILLUS (15B cfu) CAPSULE PO SCH ×3 (08:05→17:48)
[2017-07-18] MEDS: MetroNIDAZOLE 500 MG TABLET PO SCH ×3 (08:05→17:48)
[2017-07-18] MEDS: MECLIZINE 12.5 MG TABLET PO SCH ×3 (08:05→20:34)
[2017-07-18] MEDS ORDERED: FALL RISK - PHARMACY CONSULT XX ONE (08:09)
--- NOTE | 2017-07-18 09:44 | IRU Progress Note ---
- Subjective/Serverity of Illness Ms. Reynolds was evaluated in her room on the IRU. She is much more animated and verbal and optimistic today. She continues to improve regarding dizziness. Have reviewed therapist notes. She continues to do exercises regarding her vertigo. She says it is better and this is confirmed by therapist as well. She is also improving with transfers and dressing. Remains in contact isolation due to C. difficile colitis. She reports her bowels are slowing down a bit. Nurses notes indicate they are formed and not incontinent at present. She remains afebrile. Appetite is reasonably good. Update on medical problems as follows: 1. Episodic severe vertigo: Therapy confirms that her symptoms are improved and she also indicates this. 2. Hyponatremia: Remains resolved at present. 3. New fracture at S3: She denies pain in the sacral area present. 4. Recent urinary tract infection: She remains afebrile and denies symptoms of UTI. 5. Hypokalemia: Potassium remains normal. 6. C. difficile colitis: Per patient report and per nursing notes, stools are now formed and not incontinent. 7. Leg heaviness and possible numbness/tingling: She has had no recurrence of the symptoms. She continues to be stable in this regard. Exam Vital Signs: Temperature 96.3 F L 07/18/17 08:00 Pulse Rate 60 07/18/17 08:00 Respiratory Rate 16 07/18/17 08:00 Blood Pressure 153/67 H 07/18/17 08:00 Pulse Oximetry 94 07/18/17 08:00 Height/Weight/BMI: Height 1.75 m Weight 61.4 kg Body Mass Index 20.2 Comments: The patient is awake, alert and oriented and in no acute distress. She is very animated and loquacious today. Pupils are equal. The neck is supple. Chest: Clear to auscultation bilaterally. Cor: RR with no gallop, click nor murmur Abd: soft with normo-active bowel sounds. There are no masses, no tenderness and no guarding. Extremities: No edema is noted. There are good pulses in both ankles. No cyanosis is present. Results IRU - Labs Labs: Reviewed recent labs and therapy notes. IRU A/P (1) Vertigo Current visit: Yes Status: Acute BPPV versus Mnire's. Improving with therapy. (2) Sacral fracture, closed Qualifiers: Encounter type: initial encounter Zone of sacrum fracture: unspecified portion of sacrum Qualified Code(s): S32.10XA - Unspecified fracture of sacrum , initial encounter for closed fracture Current visit: Yes Status: Acute Asymptomatic and stable. (3) Recurrent UTI (urinary tract infection) Current visit: Yes Status: Resolved (4) Frequent falls Current visit: Yes Status: Acute Continues to work with therapy. Contact isolation is a barrier to discharge and improvement. (5) Memory loss Current visit: Yes Status: Chronic (6) C. difficile colitis Current visit: Yes Status: Resolved Remains afebrile. Stools are formed and not incontinent. White count normal. Remains on metronidazole. (7) Hypokalemia Current visit: Yes Status: Resolved (8) Leg weakness, bilateral Current visit: Yes Status: Acute DVT Prophylaxis: SCD's Resuscitation Status: Do Not Resuscitate - Course Hospital Course: Kareem Kumar MD: 07/07/17 11:00 She is adjusting to the rehabilitation milieu well. Continues to have vertigo. This is being addressed. Mini-Mental status exam indicates memory loss so we will start some donepezil. 07/10/17 11:19 She has developed C. difficile colitis. She is on Flagyl. White count was 27, 000 but is now down to 18,000. Remains afebrile. Appetite is reduced but no vomiting noted. Continues to be quite dizzy at times. She is too fatigued today to pursue therapy so we will hold one more day and hopefully can restart tomorrow. 07/11/17 09:48 Therapy has been on hold for 3 days due to fatigue from her C. difficile colitis. We will restart therapy today. Electrolyte abnormalities are improved. Vertigo continues to be a significant barrier. 07/12/17 10:19 Tolerated therapy well yesterday. Continues to struggle with vertigo. Had leg weakness today of uncertain cause. Please see above discussion. Have discussed with hospitalists. Diarrhea is improved with regard to the C. difficile colitis. 07/14/17 11:39 Patient is making progress with therapies. Does have episodes of severe vertigo. Leg weakness no longer present. Colitis improving and remains on metronidazole. 07/17/17 10:43 Continues to improve with therapies. Therapy notes reviewed. Vertigo seems to be less intense and less frequent. She reports that her bowels are more well formed. Metronidazole was increased over the weekend to 500 mg 3 times daily due to leukocytosis. White count is now normal. 07/18/17 09:44 Improved with therapy. Dizziness improved. Bowels are becoming more formed. Remains on metronidazole. Anticipate getting out of isolation soon. - Interventions to Obtain Goals PT Treatment Plan: Balance/Proprioception, Functional Activities, Gait Training , Patient/Family Education, Therapeutic Exercise OT Treatment Plan: ADL (Basic Care), Balance Training, IADL, Pt./Family Education, Ther. Exercise for ADL Goals Progress/Modifications: Time spent with patient and on floor reviewing data and documentin min Barriers to dismissal: Contact isolation, endurance, vertigo Medical decision-making: Discussed issues of isolation discontinuance. She is completing about 10 days of the metronidazole. Seems to be improved. Anticipate getting out of isolation in the next day or so.
--- NOTE | 2017-07-18 14:20 | IRU Team Meeting ---
IRU Team Meeting - Nursing Vital Signs: Vital Signs - 24 hr 07/17/17 16:00 07/17/17 19:33 07/18/17 08:00 Temperature 97.6 F 98.0 F 96.3 F L Pulse Rate 68 74 60 Respiratory Rate 16 18 16 Blood Pressure 144/69 H 138/69 153/67 H Pulse Oximetry 94 94 94 Current Medications: Acetaminophen (Tylenol) 500 mg PO Q4H PRN PRN Reason: Pain Last Admin: 07/17/17 22:22 Dose: 500 mg Cholestyramine Resin (Questran Light) 4 g PO Q6H PRN PRN Reason: Diarrhea Last Admin: 07/17/17 20:42 Dose: 4 g Cyanocobalamin (Vit. B-12) 1,000 mcg PO DAILY [facility] Last Admin: 07/18/17 08:04 Dose: 1,000 mcg Donepezil HCl (Aricept) 5 mg PO HS [facility] Last Admin: 07/17/17 20:42 Dose: 5 mg Fexofenadine HCl (Nelly) 180 mg PO DAILY [facility] Last Admin: 07/18/17 08:04 Dose: 180 mg Lactobacillus Acidophilus (Culturelle) 2 cap PO TIDWM [facility] Last Admin: 07/18/17 13:00 Dose: 2 cap Levothyroxine Sodium (Synthroid) 100 mcg PO ACB [facility] Last Admin: 07/18/17 05:28 Dose: 100 mcg Meclizine HCl (Antivert) 12.5 mg PO TID [facility] Last Admin: 07/18/17 08:05 Dose: 12.5 mg Meloxicam (Mobic) 7.5 mg PO WB [facility] Last Admin: 07/18/17 08:04 Dose: 7.5 mg Metronidazole (Flagyl) 500 mg PO TIDWM [facility] Last Admin: 07/18/17 13:00 Dose: 500 mg Mirabegron (Myrbetriq) 25 mg PO DAILY [facility] Last Admin: 07/18/17 08:04 Dose: 25 mg Multivitamins/Minerals (Therapeutic - M) 1 tab PO DAILY [facility] Last Admin: 07/18/17 08:04 Dose: 1 tab Ondansetron HCl (Zofran Po) 4 mg PO Q4H PRN PRN Reason: Nausea &/or vomiting Last Admin: 07/14/17 05:30 Dose: 4 mg Sertraline HCl (Zoloft) 50 mg PO DAILY [facility] Last Admin: 07/18/17 08:05 Dose: 50 mg Sodium Chloride (Iv Flush) 10 - 80 ml IV PRN PRN PRN Reason: Flushing Last Admin: 07/17/17 20:46 Dose: 10 ml Zinc Oxide (Diaper Rash Ointment) 1 applic TP Q2H PRN PRN Reason: Anal irritation Last Admin: 07/16/17 15:11 Dose: 1 applic Current Medical Issues: C. difficile colitis, vertigo, cognition deficit (reduced memory) Comments: I certify that I personally led the interdisciplinary team meeting and agree with comments, barriers and goals indicated. Team meeting was held in the patient's room with the patient and the following family members present: son Robb Reynolds by phone conference during the Team meeting Mrs. Reynolds is completing 10 days of metronidazole. She was doing well with regard to her stooling and had more formed stools over the last 48 hours. Unfortunate she did have incontinence stool this morning keeping her in isolation for the time being. However her white count is now normal and she is afebrile and overall feeling better. Her appetite is moderately good. Her vertigo is improved. Therapy has been working with her and she is doing better in that regard. Memory continues to be a potential issue and she is on donepezil. Her son wondered about assisted living at some point. - Physical Therapy Comments: She is very cooperative with therapy. She is standby assistance for bed/chair/ wheelchair transfers. She is standby assistance for ambulation at 112 feet. She is improving with regard to therapy. - Occupational Therapy Comments: She is working on showering and dressing. She is standby assistance for grooming and lower body dressing. She is contact-guard assistance for tub transfers and standby assistance for toileting and transfers. Continues to improve with occupational therapy as well. Also working with occupational therapy regarding vertigo treatment. - Goals Goals last week: 1. Ambulation 75 feet with standby assistance-patient has achieve this and is walking 112 feet 2. Transfer with standby assistance-patient has achieved this Goals for next week: 1. Improve balance 2. Improve endurance and safety with walker by exercising for 60 minutes with only one rest break. - Barriers to Discharge Barriers to Attaining Goals: Balance, Endurance, Medical Limitation - Care Plan Anticipated DC Destination: Home, Self Care I have led this team conference and agree with the plan. Anticipated Length of Stay (days): 8
[2017-07-18] MEDS: SALINE FLUSH 10ml SYRINGE IV PRN ×2 (15:51→20:34)
[2017-07-18] MEDS: DONEPEZIL 5 MG TABLET PO SCH (20:34)
[2017-07-19] MEDS: LEVOTHYROXINE 100 MCG TABLET PO SCH (06:42)
[2017-07-19] MEDS: SALINE FLUSH 10ml SYRINGE IV PRN ×2 (08:59→20:37)
[2017-07-19] MEDS: MIRABEGRON 25mg TABLET PO SCH (09:00)
[2017-07-19] MEDS: SERTRALINE 50 MG TABLET PO SCH (09:00)
[2017-07-19] MEDS: MELOXICAM 7.5 MG TABLET PO SCH (09:00)
[2017-07-19] MEDS: MULTI-VITAMIN + MINERAL TABLET PO SCH (09:00)
[2017-07-19] MEDS: MECLIZINE 12.5 MG TABLET PO SCH ×3 (09:00→20:35)
[2017-07-19] MEDS: LACTOBACILLUS (15B cfu) CAPSULE PO SCH ×3 (09:01→17:27)
[2017-07-19] MEDS: FEXOFENADINE 180 MG TABLET PO SCH (09:01)
[2017-07-19] MEDS: CYANOCOBALAMIN (B-12) 500mcg TABLET PO SCH (09:01)
[2017-07-19] MEDS: MetroNIDAZOLE 500 MG TABLET PO SCH ×3 (09:01→17:27)
[2017-07-19] MEDS: ZINC OXIDE 40% (Diaper Rash) OINT. 56gm TP PRN ×3 (09:12→20:34)
--- NOTE | 2017-07-19 12:50 | IRU Progress Note ---
- Subjective/Serverity of Illness Ms. Reynolds states that she feels much stronger and is doing better. She reports that she has been constipated but had a bowel movement today. In truth, she has had diarrhea secondary to the C. difficile colitis. Had an incontinent stool today apparently. Remains in isolation for this reason. Denies abdominal pain. She states that she is eating adequately. The patient reports that her dizziness had is improved although she still has occasional episodes. This is actually difficult to assess with her reduced memory. She is on Aricept. I reviewed therapy notes. She is improving with regard to upper body dressing which is now independent. However she is limited by poor endurance, difficulty with balance and reduced safety awareness. Update on medical problems as follows: 1. Episodic severe vertigo: She reports improvement in her dizziness. However it is extremity difficult to assess in view of her reduced memory. 2. Hyponatremia: Remains resolved at present. 3. New fracture at S3: She is not requiring pain medication for this. 4. Recent urinary tract infection: She remains afebrile and denies symptoms of UTI. 5. Hypokalemia: Potassium repeated today and is normal. 6. C. difficile colitis: As noted above, the patient believes that she has been constipated but had a bowel movement this morning. However in truth, she has had diarrhea. Had an incontinent stool yesterday and today. For this reason she remains in isolation. In addition, her white count is back up a bit at 11,000 for uncertain reasons. Does not have any abdominal pain. No vomiting noted. 7. Leg heaviness and possible numbness/tingling: Has not complained of any further symptoms in this regard. Exam Vital Signs: Temperature 97.8 F 07/19/17 09:12 Pulse Rate 69 07/19/17 09:12 Respiratory Rate 16 07/19/17 09:12 Blood Pressure 152/70 H 07/19/17 09:12 Pulse Oximetry 94 07/19/17 09:12 Height/Weight/BMI: Height 1.75 m Weight 59.2 kg Body Mass Index 20.2 Comments: The patient is awake, alert and in no distress. She is quite verbal. I'm not certain she is totally oriented but I did not administer a formal memory testing today. Pupils are equal. The neck is supple. Chest: Clear to auscultation bilaterally. Cor: RR with no gallop, click nor murmur Abd: soft with normo-active bowel sounds. There are no masses, no tenderness and no guarding. Extremities: No edema is noted. Results IRU - Labs Labs: Reviewed today's labs including CBC and chemistries. IRU A/P (1) Vertigo Current visit: Yes Status: Acute She claims that her vertigo is better. However extremely difficult to assess with her reduced cognition. (2) Sacral fracture, closed Qualifiers: Encounter type: initial encounter Zone of sacrum fracture: unspecified portion of sacrum Qualified Code(s): S32.10XA - Unspecified fracture of sacrum , initial encounter for closed fracture Current visit: Yes Status: Acute (3) Recurrent UTI (urinary tract infection) Current visit: Yes Status: Resolved (4) Frequent falls Current visit: Yes Status: Acute She has poor safety awareness, poor balance and poor endurance. Continues to work with OT and PT and making slow progress. Patient like to return to her own home. Family discussing possible assisted living. She is resistant to this. (5) Memory loss Current visit: Yes Status: Chronic Her reduced cognition is making itself known at the present time with her comments about her bowels. Because of this it is difficult to assess degree of improvement with regard to her vertigo. (6) C. difficile colitis Current visit: Yes Status: Resolved Continues to have some incontinence of stools. These are loose. However they are more well formed. I believe that in truth she is resolving from her colitis. However, her white count is elevated once again at 11,000. This is of uncertain etiology as she shows no signs of worsening infection or other symptoms. (7) Hypokalemia Current visit: Yes Status: Resolved (8) Leg weakness, bilateral Current visit: Yes Status: Acute DVT Prophylaxis: SCD's Resuscitation Status: Do Not Resuscitate - Course Hospital Course: Kareem Kumar MD: 07/07/17 11:00 She is adjusting to the rehabilitation milieu well. Continues to have vertigo. This is being addressed. Mini-Mental status exam indicates memory loss so we will start some donepezil. 07/10/17 11:19 She has developed C. difficile colitis. She is on Flagyl. White count was 27, 000 but is now down to 18,000. Remains afebrile. Appetite is reduced but no vomiting noted. Continues to be quite dizzy at times. She is too fatigued today to pursue therapy so we will hold one more day and hopefully can restart tomorrow. 07/11/17 09:48 Therapy has been on hold for 3 days due to fatigue from her C. difficile colitis. We will restart therapy today. Electrolyte abnormalities are improved. Vertigo continues to be a significant barrier. 07/12/17 10:19 Tolerated therapy well yesterday. Continues to struggle with vertigo. Had leg weakness today of uncertain cause. Please see above discussion. Have discussed with hospitalists. Diarrhea is improved with regard to the C. difficile colitis. 07/14/17 11:39 Patient is making progress with therapies. Does have episodes of severe vertigo. Leg weakness no longer present. Colitis improving and remains on metronidazole. 07/17/17 10:43 Continues to improve with therapies. Therapy notes reviewed. Vertigo seems to be less intense and less frequent. She reports that her bowels are more well formed. Metronidazole was increased over the weekend to 500 mg 3 times daily due to leukocytosis. White count is now normal. 07/18/17 09:44 Improved with therapy. Dizziness improved. Bowels are becoming more formed. Remains on metronidazole. Anticipate getting out of isolation soon. 07/19/17 12:52 Remains in isolation due to the incontinence of stool. Denies abdominal pain and she is eating adequately. Memory continues to be an issue which is more manifest today with regard to her bowel movement comments. White count elevated at 11,000 for uncertain reasons. - Interventions to Obtain Goals PT Treatment Plan: Balance/Proprioception, Functional Activities, Gait Training , Patient/Family Education, Therapeutic Exercise OT Treatment Plan: ADL (Basic Care), Balance Training, IADL, Pt./Family Education, Ther. Exercise for ADL Goals Progress/Modifications: Time spent with patient and on floor reviewing data and documentin minutes Barriers to dismissal: Safety awareness, balance, endurance, cognition, loose stools Medical decision-making: Over the past 24 hours I have debated whether we could get her out of isolation. Unfortunate she continues to have some incontinence of stools. Her white count is once again elevated. She does not have a cough, sputum, shortness of breath nor any urinary tract symptoms. Etiology of the elevated white count is not clear to me. We will continue isolation for the time being. Remains on metronidazole.
[2017-07-19] MEDS: CHOLESTYRAMINE LIGHT 4 G PACKET PO PRN (20:34)
[2017-07-19] MEDS: DONEPEZIL 5 MG TABLET PO SCH (20:35)
[2017-07-19] MEDS: ACETAMINOPHEN 500 MG TABLET PO PRN (20:35)
[2017-07-20] MEDS: LEVOTHYROXINE 100 MCG TABLET PO SCH (05:54)
[2017-07-20] MEDS: MIRABEGRON 25mg TABLET PO SCH (09:17)
[2017-07-20] MEDS: FEXOFENADINE 180 MG TABLET PO SCH (09:17)
[2017-07-20] MEDS: MELOXICAM 7.5 MG TABLET PO SCH (09:17)
[2017-07-20] MEDS: MetroNIDAZOLE 500 MG TABLET PO SCH ×3 (09:17→17:22)
[2017-07-20] MEDS: MULTI-VITAMIN + MINERAL TABLET PO SCH (09:17)
[2017-07-20] MEDS: LACTOBACILLUS (15B cfu) CAPSULE PO SCH ×3 (09:17→17:22)
[2017-07-20] MEDS: MECLIZINE 12.5 MG TABLET PO SCH ×3 (09:17→20:37)
[2017-07-20] MEDS: CYANOCOBALAMIN (B-12) 500mcg TABLET PO SCH (09:18)
[2017-07-20] MEDS: SERTRALINE 50 MG TABLET PO SCH (09:18)
--- NOTE | 2017-07-20 09:54 | Progress Note ---
<Dayana Palomo V - Last Filed: 07/20/17 09:50> Subjective: Mrs Reynolds is seen and examined today while finishing breakfast. She is alert, oriented, pleasant and is in good spirits today. She states that she is feeling the best she is felt in months. She was able to sleep good overnight. Reports that her neck pain and leg pain has resolved. Is without any other complaints of pain, shortness of breath or GI concerns. She has been incontinent of stool for 48 hours. Objective Vital signs: Temperature 97.6 F 07/19/17 22:51 Pulse Rate 69 07/19/17 22:51 Respiratory Rate 12 07/19/17 22:51 Blood Pressure 141/71 H 07/19/17 22:51 Pulse Oximetry 93 07/19/17 22:51 Height/Weight/BMI: Height 1.75 m Weight 60.2 kg Body Mass Index 20.2 - Constitutional Present: no acute distress, well nourished, well developed - Routine HEENT Exam Eye: Present: EOMI ENT: Present: mucous membranes moist, dentition normal - Routine Respiratory Exam Present: CTA bilaterally. Absent: wheezes - Routine Cardiovascular Exam Present: RRR, S1, S2. Absent: murmur - Routine Abdominal Exam Present: soft, normoactive bowel sounds, non distended. Absent: tenderness - Routine Extremities Exam Present: normal capillary refill - Routine Back/Spine/Pelvis Exam Back/Spine: Present: full ROM - Routine Skin Exam Present: intact, dry, warm - Routine Neurological Exam Present: alert, oriented X3, CN II-XII intact - Routine Lymphatic Exam Lymphatic: Absent: adenopathy - Routine Psychiatric Exam Present: normal affect Results - Labs CBC & Chem 7: 07/19/17 04:46 07/19/17 04:46 Microbiology Results: Microbiology 07/08/17 15:01 Peripheral/Iv Start Blood Culture - Final No Growth After 5 Days 07/08/17 15:15 Peripheral/Iv Start Blood Culture - Final No Growth After 5 Days Assessment and Plan (1) Sacral fracture, closed Current visit: Yes Status: Acute (2) Frequent falls Current visit: Yes Status: Acute (3) C. difficile colitis Current visit: Yes Status: Resolved Assessment and Plan: Impression Sacral fracture C.diff, acute Hypokalemia, acute; Not POA Leukocytosis, acute Frequent falls Orthostasis- acute Vertigo Chronic urinary incontinence with frequent UTIs Hypothyroidism OA 07/20-Plan Spoke with infectious disease nurse, given the patient has been continent of stool for 48 hours. We can discontinue contact precautions. Patient is on day 13 of Flagyl treatment of C. difficile. Continue Culturelle Overall is doing great and making good gains. Labs reviewed from yesterday Continue PT/OT for ongoing strengthening, She is hopeful to return home. Hospital Course Summary Disclaimer: The visit summary below is not to be considered part of the above Progress Note. Hospital Course: 07/06/17- initial consultation Impression Frequent falls Vertigo Sacral fracture Chronic urinary incontinence with frequent UTIs Hypothyroidism OA Plan Rehabilitation orders and management as per Dr Kumar Encourage work with PT/OT for strengthening. Maria Del Carmen was living independently prior to admission Continue with Meclizine for dizziness, will schedule 12.5 TID as recommended by Dr. Hairston. Did also consider adding steroids. Montior regular BMP to follow electrolytes. She did have hyponatremia on initial admission. Tylenol as needed for sacral fracture pain. Will attempt to avoid use of narcotics as this may add to dizziness and constipation. Zoloft for chronic depression. MiraLAX for chronic bowel motivation Plan- 07/08 In light of orthostasis and loose stools will check CBC and BMP now. Have nursing staff given 1 Liter of NS to run over 4 hours for hydration Recheck Orthostatic vitals later today following IV fluids Continue scheduled Meclizine TID Recommend holding Miralax given loose stools. Continue to encourage PT/OT for ongoing strengthening Plan discussed with attending, Dr Norris Plan- 07/09 Maria Del Carmen reports she is feeling much better and has enjoyed her day of rest. Continue to encourage participation in therapies for strengthening and improvement in functional abilities. C. diff diarrhea seems to be improving with less frequency in stools. Low grade temperate noted around 99. WBC increased today to 27.1 (up from 24.9 on ). Continue Flagyl for c.diff treatment. No other signs of alternative infection. Blood cultures negative after 1 day. UA negative on 07/08. CXR showed no acute cardiopulmonary changes. Continue to monitor pulse ox closely and encourage incentive spirometry. Patient given 1L NS last evening in light of orthostasis. Labs today revealed hypokalemia with elevated WBC. Will give NS with KCl 20 at 75cc/hr for hydration and potassium replacement given poor oral intake and recent excessive fluid loss through diarrhea. Recheck orthostatic pressures in AM prior to therapy. Monitor daily weight closely for signs of fluid overload. Will recheck CBC and BMP in Am to monitor blood counts, electrolyses and renal function. Continue scheduled Meclizine TID for dizziness. Miralax discontinued due c.diff and current diarrhea. Plan discussed with attending, Dr. Pascal. 07/12/17 Plan Into room to re-examine Maria Del Carmen once up in the chair with PT. Following stretching and spinal therapy she is no longer having tingling or pain in her legs and feet. She states that he "legs came alive". Continue to encourage work with PT/OT for strengthening Continue metronidazole for treatment of C diff. Asked nursing staff to give Questran as she continues to have some loose stools. Leukocytosis continues to normalize. Chemistry panel is normal. Encourage oral intake. 07/16/17 16:09 07/16/17 Patient is slowly improving. Prior c/o neuropathic limb sx- check Ferritin, Iron, B vitamins. need to target Ferritin of around 30-50 if low. (can contribute to neuropathy) Continue treatment for C.Diff- her weight count remains elevated, up a bit today. Will increase Flagyl to 500mg PO TID. If leukocytosis persists, consider adding oral Vanco. BP is running a bit high- may need to treat if persists. Recheck labs in AM for stability. Continue PT/OT. Pt is hoping to return home with help. 07/20-Plan Spoke with infectious disease nurse, given the patient has been continent of stool for 48 hours. We can discontinue contact precautions. Patient is on day 13 of Flagyl treatment of C. difficile. Continue Culturelle Overall is doing great and making good gains. Labs reviewed from yesterday Continue PT/OT for ongoing strengthening, She is hopeful to return home. <Carlos A Pascal - Last Filed: 07/20/17 18:25> Objective Vital signs: Temperature 96.9 F 07/20/17 15:30 Pulse Rate 67 07/20/17 15:30 Respiratory Rate 16 07/20/17 15:30 Blood Pressure 147/68 H 07/20/17 15:30 Pulse Oximetry 91 07/20/17 15:30 Height/Weight/BMI: Height 1.75 m Weight 60.2 kg Body Mass Index 20.2 Results - Labs CBC & Chem 7: 07/19/17 04:46 07/19/17 04:46 Microbiology Results: Microbiology 07/08/17 15:01 Peripheral/Iv Start Blood Culture - Final No Growth After 5 Days 07/08/17 15:15 Peripheral/Iv Start Blood Culture - Final No Growth After 5 Days Assessment and Plan (1) Sacral fracture, closed Current visit: Yes Status: Acute (2) Frequent falls Current visit: Yes Status: Acute (3) C. difficile colitis Current visit: Yes Status: Resolved Assessment and Plan: Impression Sacral fracture C.diff, acute Hypokalemia, acute; Not POA Leukocytosis, acute Frequent falls Orthostasis- acute Vertigo Chronic urinary incontinence with frequent UTIs Hypothyroidism OA Have independently interviewed and examined pt. Chart reviewed. Case discussed with my [employer]. Above care plan developed with my supervision; agree with above. Happy to be able to be out of her room!! Is feeling much better. Stools much improved. No ab pain or nausea. Breathing well. Working well with therapy; starting to feel like her strength is returning. Lungs: clear CV: regular MSE: awake alert appropriate Plan: Compete course of metronidazole. Continue Culturelle. Encourage continued therapy. Medically stable for IRU floor activities. Hospital Course Summary Disclaimer: The visit summary below is not to be considered part of the above Progress Note.
--- NOTE | 2017-07-20 13:04 | IRU Progress Note ---
- Subjective/Serverity of Illness Ms. Reynolds was evaluated in her room on the IRU. She is now out of isolation because she has had continent stools. She states that her appetite is good. She is thrilled that she can be out in about more. She is indeed ambulating better. Her strength is better. Review of therapy notes indicates that she is doing well with ADLs at standby assistance to contact guard level. She is independent with some functions. She is good with upper body dressing. With regard to physical therapy, she is ambulating more than 150 feet. She is doing well with transfers. She reports her appetite is good. She states that her dizziness continues to improve. Update on medical problems as follows: 1. Episodic severe vertigo: We do not observe any nystagmus. By her report, this is improved. Again cognition may be an issue and remembering the situation. 2. Hyponatremia: Remains resolved at present. 3. New fracture at S3: Stable 4. Recent urinary tract infection: She remains afebrile and denies symptoms of UTI. 5. Hypokalemia: Potassium repeated today and is normal. 6. C. difficile colitis: She remains on metronidazole 5 mg 3 times a day and she is on day 13 of this. Her stools are now continent. She is out of isolation. 7. Leg heaviness and possible numbness/tingling: Has not complained of any further symptoms in this regard. Exam Vital Signs: Temperature 97.6 F 07/20/17 10:44 Pulse Rate 64 07/20/17 10:44 Respiratory Rate 16 07/20/17 10:44 Blood Pressure 139/67 07/20/17 10:44 Pulse Oximetry 95 07/20/17 10:44 Height/Weight/BMI: Height 1.75 m Weight 60.2 kg Body Mass Index 20.2 Comments: The patient is awake, alert and oriented and in no acute distress. Prolonged conversation with her indicates that her cognition is actually not too bad. She recalls the names of all of her grandchildren etc. There may be issues with immediate recall. She has decided to go to assisted living. Pupils are equal. The neck is supple. Chest: Clear to auscultation bilaterally. Cor: RR with no gallop, click nor murmur Abd: soft with normo-active bowel sounds. There are no masses, no tenderness and no guarding. Extremities: No edema is noted. There are good pulses in both ankles. No cyanosis is present. Eye examination fails to reveal evidence of nystagmus. She has full motion of extraocular muscles. Strength appears to be good bilaterally. No tremors noted. IRU A/P (1) Vertigo Current visit: Yes Status: Acute Patient reports subjectively improved symptoms of vertigo. (2) Sacral fracture, closed Qualifiers: Encounter type: initial encounter Zone of sacrum fracture: unspecified portion of sacrum Qualified Code(s): S32.10XA - Unspecified fracture of sacrum , initial encounter for closed fracture Current visit: Yes Status: Acute (3) Recurrent UTI (urinary tract infection) Current visit: Yes Status: Resolved (4) Frequent falls Current visit: Yes Status: Acute (5) Memory loss Current visit: Yes Status: Chronic Cognition was noted today to be reasonably good. She has good memory for family names etc. She remains on Aricept without known side effects. (6) C. difficile colitis Current visit: Yes Status: Resolved Stools are formed. She is now out of isolation. (7) Hypokalemia Current visit: Yes Status: Resolved (8) Leg weakness, bilateral Current visit: Yes Status: Acute DVT Prophylaxis: SCD's Resuscitation Status: Do Not Resuscitate - Course Hospital Course: Kareem Kumar MD: 07/07/17 11:00 She is adjusting to the rehabilitation milieu well. Continues to have vertigo. This is being addressed. Mini-Mental status exam indicates memory loss so we will start some donepezil. 07/10/17 11:19 She has developed C. difficile colitis. She is on Flagyl. White count was 27, 000 but is now down to 18,000. Remains afebrile. Appetite is reduced but no vomiting noted. Continues to be quite dizzy at times. She is too fatigued today to pursue therapy so we will hold one more day and hopefully can restart tomorrow. 07/11/17 09:48 Therapy has been on hold for 3 days due to fatigue from her C. difficile colitis. We will restart therapy today. Electrolyte abnormalities are improved. Vertigo continues to be a significant barrier. 07/12/17 10:19 Tolerated therapy well yesterday. Continues to struggle with vertigo. Had leg weakness today of uncertain cause. Please see above discussion. Have discussed with hospitalists. Diarrhea is improved with regard to the C. difficile colitis. 07/14/17 11:39 Patient is making progress with therapies. Does have episodes of severe vertigo. Leg weakness no longer present. Colitis improving and remains on metronidazole. 07/17/17 10:43 Continues to improve with therapies. Therapy notes reviewed. Vertigo seems to be less intense and less frequent. She reports that her bowels are more well formed. Metronidazole was increased over the weekend to 500 mg 3 times daily due to leukocytosis. White count is now normal. 07/18/17 09:44 Improved with therapy. Dizziness improved. Bowels are becoming more formed. Remains on metronidazole. Anticipate getting out of isolation soon. 07/19/17 12:52 Remains in isolation due to the incontinence of stool. Denies abdominal pain and she is eating adequately. Memory continues to be an issue which is more manifest today with regard to her bowel movement comments. White count elevated at 11,000 for uncertain reasons. 07/20/17 13:08 She is now out of isolation. Stools are formed. Remains on metronidazole at day 13 Continues to improve with therapies. Patient has decided to go to assisted living. - Interventions to Obtain Goals PT Treatment Plan: Balance/Proprioception, Functional Activities, Gait Training , Manual Therapy, Patient/Family Education, Therapeutic Exercise OT Treatment Plan: ADL (Basic Care), Balance Training, IADL, Pt./Family Education, Ther. Exercise for ADL Goals Progress/Modifications: Time spent with patient and on floor reviewing data and documentin min Barriers to dismissal: Safety concerns, balance, endurance Medical decision-making: We are continue metronidazole for the time being. She is improving and she has decided to go to assisted living at this point.
[2017-07-20] MEDS: ACETAMINOPHEN 500 MG TABLET PO PRN (20:37)
[2017-07-20] MEDS: DONEPEZIL 5 MG TABLET PO SCH (20:57)
[2017-07-21] MEDS: LEVOTHYROXINE 100 MCG TABLET PO SCH (06:44)
[2017-07-21] MEDS: CYANOCOBALAMIN (B-12) 500mcg TABLET PO SCH (08:30)
[2017-07-21] MEDS: MetroNIDAZOLE 500 MG TABLET PO SCH ×3 (08:30→17:32)
[2017-07-21] MEDS: MULTI-VITAMIN + MINERAL TABLET PO SCH (08:30)
[2017-07-21] MEDS: LACTOBACILLUS (15B cfu) CAPSULE PO SCH ×3 (08:30→17:32)
[2017-07-21] MEDS: MELOXICAM 7.5 MG TABLET PO SCH (08:31)
[2017-07-21] MEDS: MIRABEGRON 25mg TABLET PO SCH (08:31)
[2017-07-21] MEDS: FEXOFENADINE 180 MG TABLET PO SCH (08:32)
[2017-07-21] MEDS: MECLIZINE 12.5 MG TABLET PO SCH ×3 (08:32→20:46)
[2017-07-21] MEDS: SERTRALINE 50 MG TABLET PO SCH (08:32)
[2017-07-21] MEDS: ACETAMINOPHEN 500 MG TABLET PO PRN ×2 (10:13→20:46)
[2017-07-21] MEDS: DONEPEZIL 5 MG TABLET PO SCH (20:46)
[2017-07-22] MEDS: LEVOTHYROXINE 100 MCG TABLET PO SCH ×2 (05:19→05:54)
[2017-07-22] MEDS: MULTI-VITAMIN + MINERAL TABLET PO SCH (09:15)
[2017-07-22] MEDS: MIRABEGRON 25mg TABLET PO SCH (09:15)
[2017-07-22] MEDS: MECLIZINE 12.5 MG TABLET PO SCH ×3 (09:15→20:40)
[2017-07-22] MEDS: FEXOFENADINE 180 MG TABLET PO SCH (09:16)
[2017-07-22] MEDS: MELOXICAM 7.5 MG TABLET PO SCH (09:16)
[2017-07-22] MEDS: CYANOCOBALAMIN (B-12) 500mcg TABLET PO SCH (09:16)
[2017-07-22] MEDS: LACTOBACILLUS (15B cfu) CAPSULE PO SCH ×3 (09:16→17:37)
[2017-07-22] MEDS: SERTRALINE 50 MG TABLET PO SCH (09:16)
[2017-07-22] MEDS: MetroNIDAZOLE 500 MG TABLET PO SCH ×3 (09:17→17:37)
--- NOTE | 2017-07-22 16:55 | Progress Note ---
Subjective: F/U: Sacral fracture, C.diff - resolved Frustrated that her favorite devotional book may be contaminated with C diff spores (was in the room with her when she was sick). Abdominal symptoms much improved-oral drive increasing, no ab pain or nausea, stools stable. No f/c. Breathing well. Pain controlled. Tolerating therapy. Objective Vital signs: Temperature 98.3 F 07/22/17 16:08 Pulse Rate 68 07/22/17 16:08 Respiratory Rate 16 07/22/17 16:08 Blood Pressure 135/69 07/22/17 16:08 Pulse Oximetry 95 07/22/17 16:08 Height/Weight/BMI: Height 1.75 m Weight 60.7 kg Body Mass Index 20.2 - Constitutional Present: no acute distress, well nourished, well developed, cooperative - Routine HEENT Exam Head: Present: normocephalic, atraumatic, abrasion Eye: Present: PERRL ENT: Present: mucous membranes moist - Routine Respiratory Exam Present: CTA bilaterally. Absent: respiratory distress, rhonchi, wheezes, crackles - Routine Cardiovascular Exam Present: RRR, no murmur - Routine Abdominal Exam Present: soft, normoactive bowel sounds, non distended, non tender - Routine Extremities Exam Present: no edema, pulses intact. Absent: cyanosis, clubbing - Routine Musculoskeletal Exam Musculoskeletal: Present: no clubbing or cyanosis, normal strength - Routine Skin Exam Present: dry, warm - Routine Neurological Exam Present: alert, oriented X3, CN II-XII intact, moving all extremities, vision grossly intact, hearing grossly intact. Absent: motor deficit - Routine Psychiatric Exam Present: normal affect, normal thought process, cooperative, good insight, good judgment Results - Labs CBC & Chem 7: 07/19/17 04:46 07/19/17 04:46 Microbiology Results: Microbiology 07/08/17 15:01 Peripheral/Iv Start Blood Culture - Final No Growth After 5 Days 07/08/17 15:15 Peripheral/Iv Start Blood Culture - Final No Growth After 5 Days Assessment and Plan (1) Sacral fracture, closed Current visit: Yes Status: Acute (2) Frequent falls Current visit: Yes Status: Acute (3) C. difficile colitis Current visit: Yes Status: Resolved Assessment and Plan: Impression Sacral fracture C.diff, acute - resolved Hypokalemia, acute; Not POA Leukocytosis, acute Frequent falls Orthostasis- acute Vertigo Chronic urinary incontinence with frequent UTIs Hypothyroidism OA Plan Discussed C diff with patient, explain how it is a spore forming organism and what that means. Encourage patient on avoidance of antibiotics for the next several month. Encourage yogurt intake as can be helpful for the bowels. Continue Culturelle. Metronidazole started evening of 07/08/17. Can discontinue tomorrow as has had a 2 week course. Will recheck CBC tomorrow to reassess leukocytosis before stopping metronidazole. Recheck BMP in am to be certain electrolytes and renal function is stable. Encourage continue therapy. Patient is looking much stronger and better. Medically stable for IRU floor activities. Time spent with patient care 25 minutes. Hospital Course Summary Disclaimer: The visit summary below is not to be considered part of the above Progress Note. Hospital Course: 07/06/17- initial consultation Impression Frequent falls Vertigo Sacral fracture Chronic urinary incontinence with frequent UTIs Hypothyroidism OA Plan Rehabilitation orders and management as per Dr Kumar Encourage work with PT/OT for strengthening. Maria Del Carmen was living independently prior to admission Continue with Meclizine for dizziness, will schedule 12.5 TID as recommended by Dr. Hairston. Did also consider adding steroids. Montior regular BMP to follow electrolytes. She did have hyponatremia on initial admission. Tylenol as needed for sacral fracture pain. Will attempt to avoid use of narcotics as this may add to dizziness and constipation. Zoloft for chronic depression. MiraLAX for chronic bowel motivation 07/08/17 In light of orthostasis and loose stools will check CBC and BMP now. Have nursing staff given 1 Liter of NS to run over 4 hours for hydration Recheck Orthostatic vitals later today following IV fluids. Continue scheduled Meclizine TID. Recommend holding Miralax given loose stools. Continue to encourage PT/OT for ongoing strengthening. 07/09/17 Maria Del Carmen reports she is feeling much better and has enjoyed her day of rest. Continue to encourage participation in therapies for strengthening and improvement in functional abilities. C. diff diarrhea seems to be improving with less frequency in stools. Low grade temperate noted around 99. WBC increased today to 27.1 (up from 24.9 on ). Continue Flagyl for c.diff treatment. No other signs of alternative infection. Blood cultures negative after 1 day. UA negative on 07/08. CXR showed no acute cardiopulmonary changes. Continue to monitor pulse ox closely and encourage incentive spirometry. Patient given 1L NS last evening in light of orthostasis. Labs today revealed hypokalemia with elevated WBC. Will give NS with KCl 20 at 75cc/hr for hydration and potassium replacement given poor oral intake and recent excessive fluid loss through diarrhea. Recheck orthostatic pressures in AM prior to therapy. Monitor daily weight closely for signs of fluid overload. Will recheck CBC and BMP in Am to monitor blood counts, electrolyses and renal function. Continue scheduled Meclizine TID for dizziness. Miralax discontinued due c.diff and current diarrhea. 07/12/17 Into room to re-examine Maria Del Carmen once up in the chair with PT. Following stretching and spinal therapy she is no longer having tingling or pain in her legs and feet. She states that he "legs came alive". Continue to encourage work with PT/OT for strengthening. Continue metronidazole for treatment of C diff. Asked nursing staff to give Questran as she continues to have some loose stools. Leukocytosis continues to normalize. Chemistry panel is normal. Encourage oral intake. 07/16/17 Patient is slowly improving. Prior c/o neuropathic limb sx- check Ferritin, Iron, B vitamins. need to target Ferritin of around 30-50 if low. (can contribute to neuropathy) Continue treatment for C.Diff- her weight count remains elevated, up a bit. today. Will increase Flagyl to 500mg PO TID. If leukocytosis persists, consider adding oral Vanco. BP is running a bit high- may need to treat if persists. Recheck labs in AM for stability. Continue PT/OT. Pt is hoping to return home with help. 07/20/17 Spoke with infectious disease nurse, given the patient has been continent of stool for 48 hours. We can discontinue contact precautions. Patient is on day 13 of Flagyl treatment of C. difficile. Continue Culturelle. Overall is doing great and making good gains. Labs reviewed from yesterday. Continue PT/OT for ongoing strengthening, She is hopeful to return home. 07/22/17 Discussed C diff with patient, explain how it is a spore forming organism and what that means. Encourage patient on avoidance of antibiotics for the next several month. Encourage yogurt intake as can be helpful for the bowels. Continue Culturelle. Metronidazole started evening of 07/08/17. Can discontinue tomorrow as has had a 2 week course. Will recheck CBC tomorrow to reassess leukocytosis before stopping metronidazole. Recheck BMP in am to be certain electrolytes and renal function is stable. Encourage continue therapy. Patient is looking much stronger and better.
[2017-07-22] MEDS: DONEPEZIL 5 MG TABLET PO SCH (20:40)
[2017-07-22] MEDS: ACETAMINOPHEN 500 MG TABLET PO PRN (20:40)
[2017-07-23] MEDS: ACETAMINOPHEN 500 MG TABLET PO PRN ×2 (00:49→20:20)
[2017-07-23] MEDS: LEVOTHYROXINE 100 MCG TABLET PO SCH (06:27)
[2017-07-23] MEDS: LACTOBACILLUS (15B cfu) CAPSULE PO SCH ×3 (08:55→17:30)
[2017-07-23] MEDS: MIRABEGRON 25mg TABLET PO SCH (08:56)
[2017-07-23] MEDS: MetroNIDAZOLE 500 MG TABLET PO SCH ×3 (08:56→17:52)
[2017-07-23] MEDS: MECLIZINE 12.5 MG TABLET PO SCH ×3 (08:56→20:20)
[2017-07-23] MEDS: FEXOFENADINE 180 MG TABLET PO SCH (08:56)
[2017-07-23] MEDS: MELOXICAM 7.5 MG TABLET PO SCH (08:56)
[2017-07-23] MEDS: CYANOCOBALAMIN (B-12) 500mcg TABLET PO SCH (08:56)
[2017-07-23] MEDS: MULTI-VITAMIN + MINERAL TABLET PO SCH (08:57)
[2017-07-23] MEDS: SERTRALINE 50 MG TABLET PO SCH (08:57)
[2017-07-23] MEDS: DONEPEZIL 5 MG TABLET PO SCH (20:20)
[2017-07-24] MEDS: LEVOTHYROXINE 100 MCG TABLET PO SCH (06:17)
[2017-07-24] MEDS: LACTOBACILLUS (15B cfu) CAPSULE PO SCH ×3 (08:53→18:11)
[2017-07-24] MEDS: MIRABEGRON 25mg TABLET PO SCH (08:53)
[2017-07-24] MEDS: FEXOFENADINE 180 MG TABLET PO SCH (08:54)
[2017-07-24] MEDS: CYANOCOBALAMIN (B-12) 500mcg TABLET PO SCH (08:54)
[2017-07-24] MEDS: MELOXICAM 7.5 MG TABLET PO SCH (08:54)
[2017-07-24] MEDS: MECLIZINE 12.5 MG TABLET PO SCH ×3 (08:54→21:33)
[2017-07-24] MEDS: MetroNIDAZOLE 500 MG TABLET PO SCH ×3 (08:54→18:11)
[2017-07-24] MEDS: MULTI-VITAMIN + MINERAL TABLET PO SCH (08:55)
[2017-07-24] MEDS: SERTRALINE 50 MG TABLET PO SCH (08:55)
--- NOTE | 2017-07-24 14:37 | IRU Progress Note ---
- Subjective/Serverity of Illness Ms. Robert continues to be very positive and states that she is much better. She was cycle she had a bowel movement this morning. She may not recall that she had had the diarrhea previously. Nurses report that her stools are adequately formed at the present time and there is no evidence of ongoing colitis by virtue of no diarrhea, abdominal pain etc. Hospitalists are following this as well and plan to discontinue the metronidazole tomorrow. White count will be reassessed. She reports her dizziness, while still a problem, is much improved. Her appetite is better. She is doing very well with therapies for both occupational therapy and physical therapy. She has met most of her goals. Update on medical problems as follows: 1. Episodic severe vertigo: When I checked extraocular eye movement, there was a bit of nystagmus when she gazed to her left. She also noted this. 2. Hyponatremia: Remains resolved at present. 3. New fracture at S3: Stable and with adequate pain control. 4. Recent urinary tract infection: She remains afebrile and denies symptoms of UTI. 5. Hypokalemia: Potassium repeated today and is normal. 6. C. difficile colitis: Remains with formed stools and anticipation of stopping metronidazole tomorrow. 7. Leg heaviness and possible numbness/tingling: Has not complained of any further symptoms in this regard. Exam Vital Signs: Temperature 98.1 F 07/24/17 08:00 Pulse Rate 70 07/24/17 08:00 Respiratory Rate 18 07/24/17 08:00 Blood Pressure 132/66 07/24/17 08:00 Pulse Oximetry 97 07/24/17 08:00 Height/Weight/BMI: Height 1.75 m Weight 61.8 kg Body Mass Index 20.2 Comments: The patient is awake, alert and oriented and in no acute distress. However, she does repeat herself and I believe that her cognition is reduced. Pupils are equal. The neck is supple. Chest: Clear to auscultation bilaterally. Cor: RR with no gallop, click nor murmur Abd: soft with normo-active bowel sounds. There are no masses, no tenderness and no guarding. Extremities: No edema is noted. There are good pulses in both ankles. No cyanosis is present. Results IRU - Labs Labs: I reviewed the hospitalist's notes and labs etc. IRU A/P (1) Vertigo Current visit: Yes Status: Acute Vertigo appears to be improved. She will need to stay on meclizine as needed. She will need to continue doing her exercises. (2) Sacral fracture, closed Qualifiers: Encounter type: initial encounter Zone of sacrum fracture: unspecified portion of sacrum Qualified Code(s): S32.10XA - Unspecified fracture of sacrum , initial encounter for closed fracture Current visit: Yes Status: Acute Pain is adequately controlled at present. (3) Recurrent UTI (urinary tract infection) Current visit: Yes Status: Resolved (4) Frequent falls Current visit: Yes Status: Acute (5) Memory loss Current visit: Yes Status: Chronic Continues on donepezil. (6) C. difficile colitis Current visit: Yes Status: Resolved (7) Hypokalemia Current visit: Yes Status: Resolved (8) Leg weakness, bilateral Current visit: Yes Status: Acute DVT Prophylaxis: SCD's Resuscitation Status: Do Not Resuscitate - Course Hospital Course: Kareem Kumar MD: 07/07/17 11:00 She is adjusting to the rehabilitation milieu well. Continues to have vertigo. This is being addressed. Mini-Mental status exam indicates memory loss so we will start some donepezil. 07/10/17 11:19 She has developed C. difficile colitis. She is on Flagyl. White count was 27, 000 but is now down to 18,000. Remains afebrile. Appetite is reduced but no vomiting noted. Continues to be quite dizzy at times. She is too fatigued today to pursue therapy so we will hold one more day and hopefully can restart tomorrow. 07/11/17 09:48 Therapy has been on hold for 3 days due to fatigue from her C. difficile colitis. We will restart therapy today. Electrolyte abnormalities are improved. Vertigo continues to be a significant barrier. 07/12/17 10:19 Tolerated therapy well yesterday. Continues to struggle with vertigo. Had leg weakness today of uncertain cause. Please see above discussion. Have discussed with hospitalists. Diarrhea is improved with regard to the C. difficile colitis. 07/14/17 11:39 Patient is making progress with therapies. Does have episodes of severe vertigo. Leg weakness no longer present. Colitis improving and remains on metronidazole. 07/17/17 10:43 Continues to improve with therapies. Therapy notes reviewed. Vertigo seems to be less intense and less frequent. She reports that her bowels are more well formed. Metronidazole was increased over the weekend to 500 mg 3 times daily due to leukocytosis. White count is now normal. 07/18/17 09:44 Improved with therapy. Dizziness improved. Bowels are becoming more formed. Remains on metronidazole. Anticipate getting out of isolation soon. 07/19/17 12:52 Remains in isolation due to the incontinence of stool. Denies abdominal pain and she is eating adequately. Memory continues to be an issue which is more manifest today with regard to her bowel movement comments. White count elevated at 11,000 for uncertain reasons. 07/20/17 13:08 She is now out of isolation. Stools are formed. Remains on metronidazole at day 13 Continues to improve with therapies. Patient has decided to go to assisted living. 07/24/17 14:36 She has done well with therapy. Continues to have occasional episodes of dizziness. She plans to go to assisted living. We will recommend home health. Hospitalists are following the metronidazole and plans are to discontinue this tomorrow. - Interventions to Obtain Goals PT Treatment Plan: Balance/Proprioception, Functional Activities, Gait Training , Manual Therapy, Patient/Family Education, Therapeutic Exercise OT Treatment Plan: ADL (Basic Care), Balance Training, IADL, Pt./Family Education, Ther. Exercise for ADL Goals Progress/Modifications: Repeat CBC tomorrow per hospitalist. Arrangements are being made for transfer to assisted living this week.
--- NOTE | 2017-07-24 14:40 | IRU Team Meeting ---
IRU Team Meeting - Nursing Vital Signs: Vital Signs - 24 hr 07/23/17 16:07 07/23/17 21:43 07/24/17 08:00 Temperature 98.7 F 98.4 F 98.1 F Pulse Rate 69 66 70 Respiratory Rate 20 66 H 18 Blood Pressure 136/71 131/66 132/66 Pulse Oximetry 95 98 97 Current Medications: Acetaminophen (Tylenol) 500 mg PO Q4H PRN PRN Reason: Pain Last Admin: 07/23/17 20:20 Dose: 500 mg Cholestyramine Resin (Questran Light) 4 g PO Q6H PRN PRN Reason: Diarrhea Last Admin: 07/19/17 20:34 Dose: 4 g Cyanocobalamin (Vit. B-12) 1,000 mcg PO DAILY [facility] Last Admin: 07/24/17 08:54 Dose: 1,000 mcg Donepezil HCl (Aricept) 5 mg PO HS [facility] Last Admin: 07/23/17 20:20 Dose: 5 mg Fexofenadine HCl (Nelly) 180 mg PO DAILY [facility] Last Admin: 07/24/17 08:54 Dose: 180 mg Lactobacillus Acidophilus (Culturelle) 2 cap PO TIDWM [facility] Last Admin: 07/24/17 12:21 Dose: 2 cap Levothyroxine Sodium (Synthroid) 100 mcg PO ACB [facility] Last Admin: 07/24/17 06:17 Dose: 100 mcg Meclizine HCl (Antivert) 12.5 mg PO TID [facility] Last Admin: 07/24/17 08:54 Dose: 12.5 mg Meloxicam (Mobic) 7.5 mg PO WB [facility] Last Admin: 07/24/17 08:54 Dose: 7.5 mg Metronidazole (Flagyl) 500 mg PO TIDWM [facility] Last Admin: 07/24/17 12:21 Dose: 500 mg Mirabegron (Myrbetriq) 25 mg PO DAILY [facility] Last Admin: 07/24/17 08:53 Dose: 25 mg Multivitamins/Minerals (Therapeutic - M) 1 tab PO DAILY [facility] Last Admin: 07/24/17 08:55 Dose: 1 tab Ondansetron HCl (Zofran Po) 4 mg PO Q4H PRN PRN Reason: Nausea &/or vomiting Last Admin: 07/14/17 05:30 Dose: 4 mg Sertraline HCl (Zoloft) 50 mg PO DAILY [facility] Last Admin: 07/24/17 08:55 Dose: 50 mg Sodium Chloride (Iv Flush) 10 - 80 ml IV PRN PRN PRN Reason: Flushing Last Admin: 07/19/17 20:37 Dose: 10 ml Zinc Oxide (Diaper Rash Ointment) 1 applic TP Q2H PRN PRN Reason: Anal irritation Last Admin: 07/19/17 20:34 Dose: 1 applic Current Medical Issues: Dementia, recent C. difficile colitis, vertigo Comments: I certify that I personally led the interdisciplinary team meeting and agree with comments, barriers and goals indicated. Team meeting was held in the patient's room with the patient and the following family members present: Son and [id number]. She has done very well. Her blood pressure remained stable. Her appetite is improved. Stools are formed. Continues to have some dizziness but slowly improving. - Physical Therapy Comments: She is doing well with therapy. She is modified independent with grooming. She is standby assistance for upper and lower body dressing. She is able to ambulate some 620 feet at standby assistance to modified independent level of functioning. - Occupational Therapy Comments: Please see above discussion regarding therapy. She is improving nicely with therapy and has nearly plateaued. We will continue to work with endurance and balance. - Goals Last week she had a goal of pursuing 60 minutes of therapy with one rest break. She has met that goal. Also had a goal of transferring with standby assistance. That goal has been met. Additional goals will be to improve her balance and endurance over the next couple of days. - Barriers to Discharge Barriers to Attaining Goals: Weakness, Balance, Endurance, Comprehension - Care Plan Anticipated DC Destination: Home Health Service I have led this team conference and agree with the plan. Anticipated Length of Stay (days): 2
[2017-07-24] MEDS: DONEPEZIL 5 MG TABLET PO SCH (21:33)
[2017-07-24] MEDS: ACETAMINOPHEN 500 MG TABLET PO PRN (21:33)
[2017-07-25] MEDS: LEVOTHYROXINE 100 MCG TABLET PO SCH (06:10)
[2017-07-25] MEDS: LACTOBACILLUS (15B cfu) CAPSULE PO SCH ×3 (09:12→18:02)
[2017-07-25] MEDS: MIRABEGRON 25mg TABLET PO SCH (09:13)
[2017-07-25] MEDS: SERTRALINE 50 MG TABLET PO SCH (09:13)
[2017-07-25] MEDS: MELOXICAM 7.5 MG TABLET PO SCH (09:13)
[2017-07-25] MEDS: MetroNIDAZOLE 500 MG TABLET PO SCH ×3 (09:13→18:02)
[2017-07-25] MEDS: MULTI-VITAMIN + MINERAL TABLET PO SCH (09:13)
[2017-07-25] MEDS: MECLIZINE 12.5 MG TABLET PO SCH ×3 (09:13→21:06)
[2017-07-25] MEDS: CYANOCOBALAMIN (B-12) 500mcg TABLET PO SCH (09:13)
[2017-07-25] MEDS: FEXOFENADINE 180 MG TABLET PO SCH (09:13)
--- NOTE | 2017-07-25 10:32 | IRU Progress Note ---
- Subjective/Serverity of Illness And was evaluated in the therapy session. She is doing extremely well. She does have evidence of cognitive dysfunction in terms of memory but overall she is managing well. Arrangements are being made for her to go to assisted living or perhaps a transitional apartment in the meantime. She is doing well with therapy. She is able to ambulate. She is able to do many ADLs. She denies any diarrhea. Reports occasional dizziness. Today on exam she again has some nystagmus upon extreme gaze to either direction. Exam Vital Signs: Temperature 98.3 F 07/24/17 20:09 Pulse Rate 72 07/24/17 20:09 Respiratory Rate 16 07/24/17 20:09 Blood Pressure 128/66 07/24/17 20:09 Pulse Oximetry 96 07/24/17 20:09 Height/Weight/BMI: Height 1.75 m Weight 61.8 kg Body Mass Index 20.2 Comments: The patient is awake, alert and oriented and in no acute distress. Pupils are equal. The neck is supple. Chest: Clear to auscultation bilaterally. Cor: RR with no gallop, click nor murmur Abd: soft with normo-active bowel sounds. There are no masses, no tenderness and no guarding. Extremities: No edema is noted. She does have evidence of nystagmus upon extreme gaze to either the right or the left. Results IRU - Labs Labs: Blood count noted. Potassium is normal. Platelets are elevated for unknown reason. IRU A/P (1) Vertigo Current visit: Yes Status: Acute Her vertigo substantially improved. We encouraged her to continue doing exercises for this. (2) Sacral fracture, closed Qualifiers: Encounter type: initial encounter Zone of sacrum fracture: unspecified portion of sacrum Qualified Code(s): S32.10XA - Unspecified fracture of sacrum , initial encounter for closed fracture Current visit: Yes Status: Acute (3) Recurrent UTI (urinary tract infection) Current visit: Yes Status: Resolved (4) Frequent falls Current visit: Yes Status: Acute (5) Memory loss Current visit: Yes Status: Chronic Remains on donepezil. (6) C. difficile colitis Current visit: Yes Status: Resolved (7) Hypokalemia Current visit: Yes Status: Resolved (8) Leg weakness, bilateral Current visit: Yes Status: Acute She has done well with therapy. Her leg weakness is improved. Anticipate dismissal tomorrow. DVT Prophylaxis: SCD's Resuscitation Status: Do Not Resuscitate - Course Hospital Course: Kareem Kumar MD: 07/07/17 11:00 She is adjusting to the rehabilitation milieu well. Continues to have vertigo. This is being addressed. Mini-Mental status exam indicates memory loss so we will start some donepezil. 07/10/17 11:19 She has developed C. difficile colitis. She is on Flagyl. White count was 27, 000 but is now down to 18,000. Remains afebrile. Appetite is reduced but no vomiting noted. Continues to be quite dizzy at times. She is too fatigued today to pursue therapy so we will hold one more day and hopefully can restart tomorrow. 07/11/17 09:48 Therapy has been on hold for 3 days due to fatigue from her C. difficile colitis. We will restart therapy today. Electrolyte abnormalities are improved. Vertigo continues to be a significant barrier. 07/12/17 10:19 Tolerated therapy well yesterday. Continues to struggle with vertigo. Had leg weakness today of uncertain cause. Please see above discussion. Have discussed with hospitalists. Diarrhea is improved with regard to the C. difficile colitis. 07/14/17 11:39 Patient is making progress with therapies. Does have episodes of severe vertigo. Leg weakness no longer present. Colitis improving and remains on metronidazole. 07/17/17 10:43 Continues to improve with therapies. Therapy notes reviewed. Vertigo seems to be less intense and less frequent. She reports that her bowels are more well formed. Metronidazole was increased over the weekend to 500 mg 3 times daily due to leukocytosis. White count is now normal. 07/18/17 09:44 Improved with therapy. Dizziness improved. Bowels are becoming more formed. Remains on metronidazole. Anticipate getting out of isolation soon. 07/19/17 12:52 Remains in isolation due to the incontinence of stool. Denies abdominal pain and she is eating adequately. Memory continues to be an issue which is more manifest today with regard to her bowel movement comments. White count elevated at 11,000 for uncertain reasons. 07/20/17 13:08 She is now out of isolation. Stools are formed. Remains on metronidazole at day 13 Continues to improve with therapies. Patient has decided to go to assisted living. 07/24/17 14:36 She has done well with therapy. Continues to have occasional episodes of dizziness. She plans to go to assisted living. We will recommend home health. Hospitalists are following the metronidazole and plans are to discontinue this tomorrow. 07/25/17 10:31 She continues to improve with therapy. Rare episodes of dizziness. Platelets noted to be 611,000. I will discuss with her son who is an oncologist. - Interventions to Obtain Goals PT Treatment Plan: Balance/Proprioception, Functional Activities, Gait Training , Manual Therapy, Patient/Family Education, Therapeutic Exercise OT Treatment Plan: ADL (Basic Care), Balance Training, IADL, Pt./Family Education, Ther. Exercise for ADL Goals Progress/Modifications: Time spent with patient and on floor reviewing data and documentin min Barriers to dismissal: Balance, endurance Medical decision-making: She is doing well. Plans to go home tomorrow. Arrangements are being made. Platelet count of 611,000 noted. I will discuss with the patient's son who is an oncologist.
--- NOTE | 2017-07-25 19:41 | Discharge Instructions ---
Discharge Plan - Med Rec/Dispo Referrals/Follow Up: Dee Box MD [Family Provider] - (Dr. Ace Box on 07/31/17 at 10:00 am for Hosp. follow-up. [address] [place] [address]) Additional Instructions: Aricept 5mg every night at bedtime was initiated 07/06/17. Follow up with PCP for refills. Flagyl was discontinued, prior to discharge, on 07/25/17, after completing 2 week course. Prescriptions: New Cholestyramine/Aspartame [Cholestyramine Light Packet] 4 g PO Q6H PRN #1 powd.pack PRN Reason: Diarrhea Meclizine [Antivert] 12.5 mg PO TID PRN #90 tab PRN Reason: Dizziness Donepezil [Aricept] 5 mg PO HS #30 tab Continue Meloxicam 7.5 mg PO DAILY #0 Mirabegron [Myrbetriq] 50 mg PO DAILY #0 Cranberry Fruit Extract [Cranberry] 200 mg PO DAILY Cyanocobalamin (Vitamin B-12) [Vitamin B-12] 1,000 mcg PO DAILY Levothyroxine Tab [Synthroid] 100 mcg PO ACB #0 Acetaminophen [Acetaminophen Extra Strength] 500 mg PO Q4H PRN #0 PRN Reason: PAIN Sertraline HCl 50 mg PO DAILY #0 Omeprazole 20 mg PO ACB #0 cap Multivit-Min/Iron/Folic/[id number] [Hair, Skin and Nails Tablet] 1 each PO DAILY Fexofenadine [Nelly] 180 mg PO DAILY Discontinued Meclizine HCl 25 mg PO CHEW BID PRN PRN Reason: Dizziness Meclizine [Antivert] 12.5 mg PO Q6H PRN #30 tablet PRN Reason: Dizziness - Disposition 01 Discharged Home, Self-Care
[2017-07-25] MEDS: DONEPEZIL 5 MG TABLET PO SCH (21:06)
[2017-07-26] MEDS: LEVOTHYROXINE 100 MCG TABLET PO SCH (05:42)
[2017-07-26] MEDS: CYANOCOBALAMIN (B-12) 500mcg TABLET PO SCH (09:07)
[2017-07-26] MEDS: MetroNIDAZOLE 500 MG TABLET PO SCH (09:07)
[2017-07-26] MEDS: MECLIZINE 12.5 MG TABLET PO SCH (09:07)
[2017-07-26] MEDS: LACTOBACILLUS (15B cfu) CAPSULE PO SCH ×2 (09:07→12:19)
[2017-07-26] MEDS: MULTI-VITAMIN + MINERAL TABLET PO SCH (09:08)
[2017-07-26] MEDS: MELOXICAM 7.5 MG TABLET PO SCH (09:08)
[2017-07-26] MEDS: MIRABEGRON 25mg TABLET PO SCH (09:08)
[2017-07-26] MEDS: SERTRALINE 50 MG TABLET PO SCH (09:08)
[2017-07-26] MEDS: FEXOFENADINE 180 MG TABLET PO SCH (09:08)
--- NOTE | 2017-07-26 09:58 | IRU Progress Note ---
- Subjective/Serverity of Illness Maria Del Carmen was evaluated in the rehabilitation unit. She is doing exceptionally well. There is some cognitive deficit. However she is able to care for herself at this time safely. Her diarrhea has resolved. She thinks she may be a little bit on the constipated side but she is not certain. Her appetite is good. Has occasional episodes of dizziness. Arrangements have been made for dismissal today. Exam Vital Signs: Temperature 97.7 F 07/25/17 21:51 Pulse Rate 68 07/25/17 21:51 Respiratory Rate 12 07/25/17 21:51 Blood Pressure 125/65 07/25/17 21:51 Pulse Oximetry 94 07/25/17 21:51 Height/Weight/BMI: Height 1.75 m Weight 70 kg Body Mass Index 20.2 Comments: The patient is awake, alert and oriented and in no acute distress. She is pleasant. Pupils are equal. The neck is supple. Chest: Clear to auscultation bilaterally. Cor: RR with no gallop, click nor murmur Abd: soft with normo-active bowel sounds. There are no masses, no tenderness and no guarding. Extremities: No edema is noted. There are good pulses in both ankles. No cyanosis is present. IRU A/P (1) Vertigo Current visit: Yes Status: Acute Her vertigo is stable. (2) Sacral fracture, closed Qualifiers: Encounter type: initial encounter Zone of sacrum fracture: unspecified portion of sacrum Qualified Code(s): S32.10XA - Unspecified fracture of sacrum , initial encounter for closed fracture Current visit: Yes Status: Acute (3) Recurrent UTI (urinary tract infection) Current visit: Yes Status: Resolved (4) Frequent falls Current visit: Yes Status: Acute (5) Memory loss Current visit: Yes Status: Chronic She remains on Donepezil. (6) C. difficile colitis Current visit: Yes Status: Resolved (7) Hypokalemia Current visit: Yes Status: Resolved (8) Leg weakness, bilateral Current visit: Yes Status: Acute DVT Prophylaxis: SCD's Resuscitation Status: Do Not Resuscitate - Course Hospital Course: Kareem Kumar MD: 07/07/17 11:00 She is adjusting to the rehabilitation milieu well. Continues to have vertigo. This is being addressed. Mini-Mental status exam indicates memory loss so we will start some donepezil. 07/10/17 11:19 She has developed C. difficile colitis. She is on Flagyl. White count was 27, 000 but is now down to 18,000. Remains afebrile. Appetite is reduced but no vomiting noted. Continues to be quite dizzy at times. She is too fatigued today to pursue therapy so we will hold one more day and hopefully can restart tomorrow. 07/11/17 09:48 Therapy has been on hold for 3 days due to fatigue from her C. difficile colitis. We will restart therapy today. Electrolyte abnormalities are improved. Vertigo continues to be a significant barrier. 07/12/17 10:19 Tolerated therapy well yesterday. Continues to struggle with vertigo. Had leg weakness today of uncertain cause. Please see above discussion. Have discussed with hospitalists. Diarrhea is improved with regard to the C. difficile colitis. 07/14/17 11:39 Patient is making progress with therapies. Does have episodes of severe vertigo. Leg weakness no longer present. Colitis improving and remains on metronidazole. 07/17/17 10:43 Continues to improve with therapies. Therapy notes reviewed. Vertigo seems to be less intense and less frequent. She reports that her bowels are more well formed. Metronidazole was increased over the weekend to 500 mg 3 times daily due to leukocytosis. White count is now normal. 07/18/17 09:44 Improved with therapy. Dizziness improved. Bowels are becoming more formed. Remains on metronidazole. Anticipate getting out of isolation soon. 07/19/17 12:52 Remains in isolation due to the incontinence of stool. Denies abdominal pain and she is eating adequately. Memory continues to be an issue which is more manifest today with regard to her bowel movement comments. White count elevated at 11,000 for uncertain reasons. 07/20/17 13:08 She is now out of isolation. Stools are formed. Remains on metronidazole at day 13 Continues to improve with therapies. Patient has decided to go to assisted living. 07/24/17 14:36 She has done well with therapy. Continues to have occasional episodes of dizziness. She plans to go to assisted living. We will recommend home health. Hospitalists are following the metronidazole and plans are to discontinue this tomorrow. 07/25/17 10:31 She continues to improve with therapy. Rare episodes of dizziness. Platelets noted to be 611,000. I will discuss with her son who is an oncologist. 07/26/17 09:58 She has done well with therapy. She is stable at this time. We will dismiss today. - Interventions to Obtain Goals PT Treatment Plan: Balance/Proprioception, Functional Activities, Gait Training , Manual Therapy, Patient/Family Education, Therapeutic Exercise OT Treatment Plan: ADL (Basic Care), Balance Training, IADL, Pt./Family Education, Ther. Exercise for ADL
--- NOTE | 2017-07-26 10:00 | Discharge Instructions ---
Discharge Plan - Med Rec/Dispo Referrals/Follow Up: Dee Box MD [Family Provider] - (Dr. Ace Box on 07/31/17 at 10:00 am for Hosp. follow-up. [address] [place] [address]) Additional Instructions: Aricept 5mg every night at bedtime was initiated 07/06/17. Follow up with PCP for refills. Flagyl was discontinued, prior to discharge, on 07/25/17, after completing 2 week course. Prescriptions: New Cholestyramine/Aspartame [Cholestyramine Light Packet] 4 g PO Q6H PRN #1 powd.pack PRN Reason: Diarrhea Meclizine [Antivert] 12.5 mg PO TID PRN #90 tab PRN Reason: Dizziness Donepezil [Aricept] 5 mg PO HS #30 tab Continue Meloxicam 7.5 mg PO DAILY #0 Mirabegron [Myrbetriq] 50 mg PO DAILY #0 Cranberry Fruit Extract [Cranberry] 200 mg PO DAILY Cyanocobalamin (Vitamin B-12) [Vitamin B-12] 1,000 mcg PO DAILY Levothyroxine Tab [Synthroid] 100 mcg PO ACB #0 Acetaminophen [Acetaminophen Extra Strength] 500 mg PO Q4H PRN #0 PRN Reason: PAIN Sertraline HCl 50 mg PO DAILY #0 Omeprazole 20 mg PO ACB #0 cap Multivit-Min/Iron/Folic/Rfy317 [Hair, Skin and Nails Tablet] 1 each PO DAILY Fexofenadine [Nelly] 180 mg PO DAILY Discontinued Meclizine HCl 25 mg PO CHEW BID PRN PRN Reason: Dizziness Meclizine [Antivert] 12.5 mg PO Q6H PRN #30 tablet PRN Reason: Dizziness Discharge Instructions/Outpatient Orders: Provider Discharge Instructions Location: Determined By Patient - Disposition 01 Discharged Home, Self-Care
--- NOTE | 2017-07-26 10:02 | Extended Care Facility Orders ---
Admission Orders Admit to:: Other Allergies/Adverse Reactions: Allergies No Known Allergies Allergy (Verified 07/03/17 09:52) Admitting Diagnosis: Vertigo & Fall Admitting Physician: Kareem Kumar MD Attending Physician: Kareem Kumar MD Code Status: Do Not Resuscitate Rehab Potential: fair Rehab Prognosis: fair Diet: 07/05/17 Dinner Regular Diet [DIET] Diet Modifications: Wound/Incision Care: N/A May use Facility Protocol or Standing Orders: Yes May have flu vaccine: Yes Alf Certification: Skilled care is not required at this time. - Additional Information In Event of Arrest: Do Not Start CPR Resident is Aware of Diagnosis: Yes Referrals: Dee Box MD [Family Provider] - (Dr. Ace Box on 07/31/17 at 10:00 am for Hosp. follow-up. [address] [place] [address]) Additional Orders: May be up with walker and with assistance as needed.
[2017-07-26] MEDS ORDERED: FALL RISK - PHARMACY CONSULT XX ONE (10:30)
[2017-07-26 10:35] VITALS: BP 135/65; PULSE 71; RESP 16; TEMP 98.2; O2SAT 95
--- NOTE | 2017-07-26 13:20 | Discharge Summary ---
Discharge Information Date of admission: 07/05/17 16:30 Anticipated date of discharge: 07/26/17 Attending Physician: Kareem Kumar MD Primary care physician: Dee Box MD Consults: 07/05/17 17:19 IRU Screening [Inpatient Rehab Screening] [CONS] Routine 07/05/17 19:03 Physician Consult [CONS] Routine Consulting Provider: Carlos A Pascal Reason For Exam: medical management Ordering Provider has Notified Data Reduction Technician: No 07/06/17 08:53 Physician Consult [CONS] Routine Consulting Provider: Ankita Hairston Reason For Exam: falls Ordering Provider has Notified Data Reduction Technician: Yes 07/19/17 11:18 Physician Consult [CONS] Routine Consulting Provider: Sheila Walden Reason For Exam: PLACEMENT Ordering Provider has Notified Data Reduction Technician: Yes - Discharge Diagnosis (1) Vertigo Status: Acute Discharge Diagnosis: Benign positional vertigo (2) Sacral fracture, closed Status: Acute Discharge Diagnosis: acute sacral fracture, closed (3) Recurrent UTI (urinary tract infection) Status: Resolved (4) Frequent falls Status: Acute Discharge Diagnosis: Frequent falls (5) Memory loss Status: Chronic Discharge Diagnosis: Senile dementia (6) C. difficile colitis Status: Resolved Discharge Diagnosis: C. Difficile colitis, hospital acquired, resolved (7) Hypokalemia Status: Resolved Discharge Diagnosis: Hypokalemia, resolved (8) Leg weakness, bilateral Status: Acute Discharge Diagnosis: Bilateral leg weakness - Laboratory Labs: 07/25/17 09:25 07/25/17 09:25 - Microbiology Microbiology 07/08/17 15:01 Peripheral/Iv Start Blood Culture - Final No Growth After 5 Days 07/08/17 15:15 Peripheral/Iv Start Blood Culture - Final No Growth After 5 Days History of Present Illness HPI: 07/26/17 13:19 Mrs. Robert is a 81-year-old white female followed by Dr. Box. She lives in her independent apartment. She has fallen on several occasions recently. She has a history of vertigo but it has become worse recently. In addition she was recently treated for a urinary tract infection. She was admitted to the [facility]. Multiple evaluations were obtained. She was noted to have an acute fracture of the sacrum which was nondisplaced. It was relatively asymptomatic. She was also noted to have hyponatremia. A.m. cortisol and thyroid etc. was normal. Sodium did correct. She was also hypokalemic and this resolved as well. She was felt to have benign positional vertigo after evaluation by Dr. Hairston. She was transferred to the acute rehabilitation unit for further therapy. Hospital Course This is a general summary of the patient's hospital course. For more details refer to the complete medical record. The patient was admitted to the acute inpatient rehabilitation unit for strengthening, and improvement in her ADLs. She was an excellent patient and cooperated nicely with therapy. She continued to have episodes of vertigo. She was seen by physical therapy and given the typical exercises for this which she continues to do. Her vertigo did improve during the time of her stay on rehabilitation. She was also treated with meclizine in this regard. She had recently been treated for a urinary tract infection. She did develop loose stools and was positive for C. difficile. She was placed in isolation and started on metronidazole. She did have an elevated white count which subsequently resolved. Her loose stools ultimately resolved and she was able to be taken out of isolation. She was seen in consultation by occupational therapy and physical therapy and was able to participate in 3 hours of therapy at least 5 days weekly. She was monitored carefully by rehabilitation nursing staff 24 hours daily. For occupational therapy the following improvements were noted: Eating was modified independent functioning initially and this improved to independent functioning. Grooming was initially contact-guard assistance and subsequently was modified independent. Bathing was standby assistance initially and modified independent subsequently. Upper body dressing was modified independent initially and subsequently. Lower body dressing was minimal assistance initially and standby assistance subsequently. Toilet assistance was modified assistance initially and standby assistance ultimately. Bed/chair/ wheelchair transfers were initially contact-guard assistance and were subsequently standby assistance. She worked with physical therapy. Bed/chair/wheelchair transfers were initially standby assistance and were subsequently standby assistance for physical therapy. Toileting assistance was initially total assistance and ultimately was independent functioning. She was able to ambulate with standby assistance to contact-guard assistance initially and ultimately was able to ambulate over 600 feet with a front-wheeled walker with standby assistance. She was unsafe to do stairs initially but ultimately was able to to do stairs with standby assistance. Car transfers were with standby assistance. She was felt to be stable for dismissal. She has transferred to [facility] living On 07/26/2017. She will follow-up with her personal physician Dr. Box. Hospital course: 07/06/17- initial consultation Impression Frequent falls Vertigo Sacral fracture Chronic urinary incontinence with frequent UTIs Hypothyroidism OA Plan Rehabilitation orders and management as per Dr Kumar Encourage work with PT/OT for strengthening. Maria Del Carmen was living independently prior to admission Continue with Meclizine for dizziness, will schedule 12.5 TID as recommended by Dr. Hairston. Did also consider adding steroids. Montior regular BMP to follow electrolytes. She did have hyponatremia on initial admission. Tylenol as needed for sacral fracture pain. Will attempt to avoid use of narcotics as this may add to dizziness and constipation. Zoloft for chronic depression. MiraLAX for chronic bowel motivation 07/08/17 In light of orthostasis and loose stools will check CBC and BMP now. Have nursing staff given 1 Liter of NS to run over 4 hours for hydration Recheck Orthostatic vitals later today following IV fluids. Continue scheduled Meclizine TID. Recommend holding Miralax given loose stools. Continue to encourage PT/OT for ongoing strengthening. 07/09/17 Maria Del Carmen reports she is feeling much better and has enjoyed her day of rest. Continue to encourage participation in therapies for strengthening and improvement in functional abilities. C. diff diarrhea seems to be improving with less frequency in stools. Low grade temperate noted around 99. WBC increased today to 27.1 (up from 24.9 on ). Continue Flagyl for c.diff treatment. No other signs of alternative infection. Blood cultures negative after 1 day. UA negative on 07/08. CXR showed no acute cardiopulmonary changes. Continue to monitor pulse ox closely and encourage incentive spirometry. Patient given 1L NS last evening in light of orthostasis. Labs today revealed hypokalemia with elevated WBC. Will give NS with KCl 20 at 75cc/hr for hydration and potassium replacement given poor oral intake and recent excessive fluid loss through diarrhea. Recheck orthostatic pressures in AM prior to therapy. Monitor daily weight closely for signs of fluid overload. Will recheck CBC and BMP in Am to monitor blood counts, electrolyses and renal function. Continue scheduled Meclizine TID for dizziness. Miralax discontinued due c.diff and current diarrhea. 07/12/17 Into room to re-examine Maria Del Carmen once up in the chair with PT. Following stretching and spinal therapy she is no longer having tingling or pain in her legs and feet. She states that he "legs came alive". Continue to encourage work with PT/OT for strengthening. Continue metronidazole for treatment of C diff. Asked nursing staff to give Questran as she continues to have some loose stools. Leukocytosis continues to normalize. Chemistry panel is normal. Encourage oral intake. 07/16/17 Patient is slowly improving. Prior c/o neuropathic limb sx- check Ferritin, Iron, B vitamins. need to target Ferritin of around 30-50 if low. (can contribute to neuropathy) Continue treatment for C.Diff- her weight count remains elevated, up a bit. today. Will increase Flagyl to 500mg PO TID. If leukocytosis persists, consider adding oral Vanco. BP is running a bit high- may need to treat if persists. Recheck labs in AM for stability. Continue PT/OT. Pt is hoping to return home with help. 07/20/17 Spoke with infectious disease nurse, given the patient has been continent of stool for 48 hours. We can discontinue contact precautions. Patient is on day 13 of Flagyl treatment of C. difficile. Continue Culturelle. Overall is doing great and making good gains. Labs reviewed from yesterday. Continue PT/OT for ongoing strengthening, She is hopeful to return home. 07/22/17 Discussed C diff with patient, explain how it is a spore forming organism and what that means. Encourage patient on avoidance of antibiotics for the next several month. Encourage yogurt intake as can be helpful for the bowels. Continue Culturelle. Metronidazole started evening of 07/08/17. Can discontinue tomorrow as has had a 2 week course. Will recheck CBC tomorrow to reassess leukocytosis before stopping metronidazole. Recheck BMP in am to be certain electrolytes and renal function is stable. Encourage continue therapy. Patient is looking much stronger and better. Time spent with patient: 25 - 35 minutes Discharge Plan - Med Rec/Dispo Referrals/Follow Up: Dee Box MD [Family Provider] - (Dr. Ace Box on 07/31/17 at 10:00 am for Hosp. follow-up. [address] [place] [place] [address]) Carlos A Instructions: Vertigo (DC) Additional Instructions: Aricept 5mg every night at bedtime was initiated 07/06/17. Follow up with PCP for refills. Flagyl was discontinued, prior to discharge, on 07/25/17, after completing 2 week course. Prescriptions: New Cholestyramine/Aspartame [Cholestyramine Light Packet] 4 g PO Q6H PRN #1 powd.pack PRN Reason: Diarrhea Meclizine [Antivert] 12.5 mg PO TID PRN #90 tab PRN Reason: Dizziness Donepezil [Aricept] 5 mg PO HS #30 tab Continue Meloxicam 7.5 mg PO DAILY #0 Mirabegron [Myrbetriq] 50 mg PO DAILY #0 Cranberry Fruit Extract [Cranberry] 200 mg PO DAILY Cyanocobalamin (Vitamin B-12) [Vitamin B-12] 1,000 mcg PO DAILY Levothyroxine Tab [Synthroid] 100 mcg PO ACB #0 Acetaminophen [Acetaminophen Extra Strength] 500 mg PO Q4H PRN #0 PRN Reason: PAIN Sertraline HCl 50 mg PO DAILY #0 Omeprazole 20 mg PO ACB #0 cap Multivit-Min/Iron/Folic/[id number] [Hair, Skin and Nails Tablet] 1 each PO DAILY Fexofenadine [Nelly] 180 mg PO DAILY Discontinued Meclizine HCl 25 mg PO CHEW BID PRN PRN Reason: Dizziness Meclizine [Antivert] 12.5 mg PO Q6H PRN #30 tablet PRN Reason: Dizziness Discharge Instructions/Outpatient Orders: Provider Discharge Instructions Location: Determined By Patient - Disposition 01 Discharged Home, Self-Care
== END 2017-07-26 13:30 | DRG 945 ==
PROVIDERS: ADMIT Internal Medicine; ATTEND Internal Medicine

== ENCOUNTER 2017-08-24 17:42 | Inpatient (IN) ==
[2017-08-24] MEDS ORDERED: MORPHINE SULFATE 4mg INJECTION IVP ONE (18:58)
[2017-08-24] MEDS ORDERED: ONDANSETRON 4 MG/2 ML INJECTION IVP ONE (18:58)
--- NOTE | 2017-08-24 19:02 | Emergency Department Report ---
Lower Extremity Injury HPI - General Chief Complaint: Extremity Injury, Lower Stated Complaint: eval, pain in left groin, uti Time Seen by Provider: 08/24/17 18:58 - History of Present Illness HPI Narrative: 81-year-old female with left lower quadrant pelvic pain. This pain has been present for a couple of days, progressed significantly today with pain and walking. - Related Data Home Medications Medication Instructions Recorded Confirmed Levothyroxine Tab [Synthroid] 100 mcg PO ACB #0 04/22/13 08/24/17 Acetaminophen [Acetaminophen Extra 1,000 mg PO Q4H PRN #0 10/18/15 08/24/17 Strength] Sertraline HCl 50 mg PO DAILY #0 08/04/16 08/24/17 Omeprazole 20 mg PO ACB #0 cap 11/25/16 08/24/17 Cranberry Fruit Extract [Cranberry] 200 mg PO DAILY 07/03/17 08/24/17 Fexofenadine [Nelly] 180 mg PO DAILY 07/03/17 08/24/17 Lactobacillus Acidophilus 1 each PO DAILY 08/04/17 08/24/17 [Digestive Probiotic] Multivitamin [One Daily 1 each PO DAILY 08/04/17 08/24/17 Multivitamin] Meloxicam [Meloxicam] 15 mg PO DAILY 08/24/17 08/24/17 MetroNIDAZOLE [Flagyl] 500 mg PO BID 08/24/17 08/24/17 Nitrofurantoin Monohyd/M-Cryst 100 mg PO DAILY 08/24/17 08/24/17 [Macrobid 100 mg Capsule] Previous Rx's Medication Instructions Recorded Meclizine [Antivert] 12.5 mg PO TID PRN #90 tab 07/25/17 Allergies Allergy/AdvReac Type Severity Reaction Status Date / Time No Known Allergies Allergy Verified 08/24/17 19:02 [facility] Patient Stated Medical History Peripheral Neuropathy Yes: peripheral neuropathy Cataracts Yes: removed Constipation No Hx Incontinence Yes Hx Urinary Tract Infection Yes: multiple, chronic Osteoarthritis Yes Shingles Yes Depression Yes: zoloft [facility] Medical History Weakness (Resolved Medical) History of recent fall (Acute Medical) Vertebral fracture (Acute Medical) Vertebral fracture (Acute Medical) Vertigo (Acute Medical) Sacral fracture, closed (Acute Medical) Recurrent UTI (urinary tract infection) (Resolved Medical) Frequent falls (Acute Medical) Memory loss (Chronic Medical) C. difficile colitis (Resolved Medical) Hypokalemia (Resolved Medical) Leg weakness, bilateral (Acute Medical) Laceration of head (Inactive Medical) Medical History Updates: Hypothyroidism. urinary incontinence. vertigo Surgical History: Hysterectomy, orthopedic surgery. BS and O with hysterectomy. Bilateral cataract procedure. Right total knee replacement. She has had 2 surgeries on her left hip. - Social History Smoking status: Never smoker Current residence: Independent Living Course Vital Signs Temperature 98.1 F 08/24/17 18:00 Pulse Rate 68 08/24/17 18:00 Respiratory Rate 18 08/24/17 18:00 Blood Pressure 179/89 H 08/24/17 18:00 Pulse Oximetry 96 08/24/17 18:00 Temperature 98.1 F 08/24/17 18:00 Pulse Rate 64 08/24/17 23:30 Respiratory Rate 18 08/24/17 23:30 Blood Pressure 184/84 H 08/24/17 23:30 Pulse Oximetry 98 08/24/17 23:30 Extremity Injury, Lower - Lab Data Result diagrams: 08/24/17 19:17 08/24/17 19:17 Lab Results 08/24/17 08/24/17 08/24/17 Range/Units 19:17 19:17 21:31 WBC 11.3 H (4.5-11.0) T/MM3 RBC 4.65 (4.00-5.20) M/MM3 Hgb 14.5 (12-16) GM/DL Hct 43.0 (36-46) % MCV 92.5 (80-100) UM3 MCH 31.2 (26-34) UUG MCHC 33.7 (31-37) GM/DL RDW Std Deviation 45.1 (36.9-50.2) FL Plt Count 440 H (130-400) T/MM3 MPV 9.1 L (9.4-12.4) UM3 Immature Gran % (Auto) 0.3 (0.0-0.5) % Neut % (Auto) 76.3 H (33-66) % Lymph % (Auto) 14.2 L (23-45) % [place] % (Auto) 7.2 (0-9.0) % Eos % (Auto) 1.2 (0-4) % Baso % (Auto) 0.8 (0-2) % Neut # (Auto) 8.6 H (1.8-7.7) T/MM3 Lymph # (Auto) 1.6 (1-4.8) T/MM3 [place] # (Auto) 0.8 (0-0.8) T/MM3 Eos # (Auto) 0.1 (0-0.5) T/MM3 Baso # (Auto) 0.1 (0-0.2) T/MM3 Abs Immat Gran (auto) 0.03 (0.00-0.03) T/MM3 Turbidity < 20 (0-20) Sodium 138 (134-144) MEQ/L Potassium 3.5 L (3.6-5) MEQ/L Chloride 99 (98-107) MEQ/L Carbon Dioxide 27 (22-30) MEQ/L Anion Gap 12 (5-15) MEQ/L BUN 18.0 H (7-17) MG/DL Creatinine 0.7 (0.7-1.2) MG/DL GFR Calculation 80 BUN/Creatinine Ratio 26 (6-26) RATIO Glucose 108 (65-110) MG/DL Calculated Osmolality 269 (261-280) MOSM/KG Calcium 9.3 (8.4-10.2) MG/DL Total Bilirubin 0.70 (0.20-1.30) MG/DL Icterus Index < 2 (0-7) AST 25 (14-36) U/L ALT 29 (9-52) U/L Alkaline Phosphatase 141 H (38-126) U/L Total Protein 8.2 (6.3-8.2) G/DL Albumin 4.5 (3.5-5.0) G/DL Globulin 3.7 H (2.4-3.6) G/DL Albumin/Globulin Ratio 1.2 (1.1-2.2) RATIO Lipase 170 (23-300) U/L Plasma Lactate 0.9 (0.6-2.2) MMOL/L Specimen Hemolysis < 15 (0-25) Ur Collection Type Urine, clean catch Urine Color Yellow (YELLOW) Urine Clarity Clear Urine pH 6.5 (5.0-8.0) Ur Specific [place] <=1.005 L (1.015-1.025) Urine Protein Negative (NEGATIVE) Urine Glucose (UA) Negative (NEGATIVE) Urine Ketones Negative (NEGATIVE) Urine Occult Blood Negative (NEGATIVE) Urine Nitrate Negative (NEGATIVE) Urine Bilirubin Negative (NEGATIVE) Urine Urobilinogen 0.2 (NORMAL) EU/DL Ur Leukocyte Esterase Negative (NEGATIVE) Urinalysis Comment Microscopic not ind. Disposition Clinical Impression: Weakness, Unable to bear weight, Uncontrolled pain, Left hip pain, Lumbar compression fracture, History of recent fall Disposition: 02 To [facility] Condition: Stable Time of Disposition: 23:46
[2017-08-24] MEDS ORDERED: IOHEXOL 300mg/ml 100ml INJECTION ONE (19:55)
[2017-08-24] MEDS ORDERED: NS 100 ML ONE (19:55)
[2017-08-24] MEDS ORDERED: SALINE FLUSH 10ml SYRINGE ONE (19:55)
[2017-08-24] MEDS ORDERED: CEFTRIAXONE (ER USE ONLY) 1 GM in NS 100 ML IV ONE (21:34)
[2017-08-24] MEDS: HYDROCODONE/APAP 5mg/325mg TABLET PO PRN (22:07)
[2017-08-24] MEDS: SENNA + DOCUSATE TABLET PO SCH (23:45)
[2017-08-25 00:02] VITALS: BMI 19.3
[2017-08-25] MEDS ORDERED: ONDANSETRON 4 MG/2 ML INJECTION IVP PRN (00:09)
[2017-08-25] MEDS ORDERED: ACETAMINOPHEN 325 MG TABLET PO PRN (00:09)
--- NOTE | 2017-08-25 03:03 | History & Physical Report ---
History of Present Illness Date: 08/25/17 Chief complaint: left hip pain HPI: The pt is a 81 year old lady with chronic pain in her hip over the past 3 years. She presents to the ER [facility] c/o significant worsening of the chronic pain without injury recently. The pt states over the past month the pain in the hip has been progressive, dull achy, constant worse with movement, nonradiating. Maria Del Carmen does admit to falling at home and having "poor balance". There is a known L3 compression fracture, and a Left hip replacement in 2013. A recenet dx of UTI with C. diff resulting in a hospitalization. She saw her PCP her started her on Macrobid + flagyl 2 days ago for another UTI, she had 2 loose stools today. Review of Systems - Constitutional Constitutional: Present: weakness. Absent: chills, fever(s), headache(s) - EENMT Mouth/Throat: Absent: sore throat - Cardiovascular Cardiovascular: Absent: chest pain, syncope, edema - Respiratory Respiratory: Absent: cough, dyspnea - Gastrointestinal Gastrointestinal: Absent: abdominal pain, change in stool character, nausea - Genitourinary Genitourinary: Present: urinary frequency, urinary incontinence, urinary urgency. Absent: dysuria - Musculoskeletal Musculoskeletal: Present: abnormal gait, myalgias, neck pain, stiffness PFSH Patient Stated Medical History Peripheral Neuropathy Yes: peripheral neuropathy Cataracts Yes: removed Hx Incontinence Yes Hx Urinary Tract Infection Yes: multiple, chronic Osteoarthritis Yes Depression Yes: [facility] Medical History Weakness (Resolved Medical) History of recent fall (Acute Medical) Vertebral fracture (Acute Medical) Vertebral fracture (Acute Medical) Vertigo (Acute Medical) Sacral fracture, closed (Acute Medical) Recurrent UTI (urinary tract infection) (Resolved Medical) Frequent falls (Acute Medical) Memory loss (Chronic Medical) C. difficile colitis (Resolved Medical) Hypokalemia (Resolved Medical) Leg weakness, bilateral (Acute Medical) Weakness (Acute Medical) Unable to bear weight (Acute Medical) Uncontrolled pain (Acute Medical) Left hip pain (Acute Medical) Lumbar compression fracture (Acute Medical) Laceration of head (Inactive Medical) Medical History Updates: Hypothyroidism. urinary incontinence. vertigo Surgical History: Hysterectomy, orthopedic surgery. BS and O with hysterectomy. Bilateral cataract procedure. Right total knee replacement. She has had 2 surgeries on her left hip. - Social History Smoking status: Never smoker Medications Home Medications Medication Instructions Recorded Confirmed Type Levothyroxine Tab [Synthroid] 100 mcg PO ACB #0 04/22/13 08/24/17 History Acetaminophen [Acetaminophen Extra 1,000 mg PO Q4H PRN #0 10/18/15 08/24/17 History Strength] Sertraline HCl 50 mg PO DAILY #0 08/04/16 08/24/17 History Omeprazole 20 mg PO ACB #0 cap 11/25/16 08/24/17 History Cranberry Fruit Extract [Cranberry] 200 mg PO DAILY 07/03/17 08/24/17 History Fexofenadine [Nelly] 180 mg PO DAILY 07/03/17 08/24/17 History Lactobacillus Acidophilus 1 each PO DAILY 08/04/17 08/24/17 History [Digestive Probiotic] Multivitamin [One Daily 1 each PO DAILY 08/04/17 08/24/17 History Multivitamin] Meloxicam [Meloxicam] 15 mg PO DAILY 08/24/17 08/24/17 History MetroNIDAZOLE [Flagyl] 500 mg PO BID 08/24/17 08/24/17 History Nitrofurantoin Monohyd/M-Cryst 100 mg PO DAILY 08/24/17 08/24/17 History [Macrobid 100 mg Capsule] Allergies Allergy/AdvReac Type Severity Reaction Status Date / Time No Known Allergies Allergy Verified 08/24/17 19:02 Exam Vital Signs: Temperature 98.2 F 08/24/17 23:53 Pulse Rate 65 08/24/17 23:53 Respiratory Rate 16 08/24/17 23:53 Blood Pressure 190/84 H 08/24/17 23:53 Pulse Oximetry 93 08/24/17 23:53 Height/Weight/BMI: Height 1.75 m Weight 59.3 kg Body Mass Index 19.3 - Constitutional Present: no acute distress, well nourished, well developed - Routine HEENT Exam Head: Present: normocephalic, atraumatic - Routine Neck Exam Present: supple - Routine Respiratory Exam Present: CTA bilaterally. Absent: respiratory distress - Routine Cardiovascular Exam Present: RRR, no murmur - Routine Abdominal Exam Present: soft, normoactive bowel sounds, tenderness - Routine Extremities Exam Present: no edema, non tender Results - Labs CBC & Chem 7: 08/24/17 19:17 08/24/17 19:17 Assessment and Plan (1) Hip pain, acute Current visit: Yes Status: Acute (2) Recurrent UTI (urinary tract infection) Current visit: No Status: Resolved (3) Weakness Current visit: No Status: Resolved (4) Vertebral fracture Current visit: No Status: Acute Assessment and Plan: The pain appears to be acute on chronic in the hip. It is exacerbated by her weakness and UTI, will start on rocephin, IVF, ortho, Dr. Ruano has been consulted through the ER, pain meds ordered, PT>OT, recommend inpt rehab placment by S.W> urine cultures pending, recommend outpt urology f/up DVT Prophylaxis: SCD's GI Prophylaxis: Protonix Resuscitation Status: Full Code Hospital Course Summary Disclaimer: The visit summary below is not to be considered part of the above Progress Note.
--- NOTE | 2017-08-25 08:19 | CT Scan Report ---
Indication: llq pelvic pain PROCEDURE: CT abdomen pelvis w con: Encounter: Initial Comparison: CT lumbar spine dated August 04, 2017 Technique: Axial CT images were performed through the abdomen and pelvis after the administration of intravenous contrast. Coronal and sagittal two-dimensional reformats. Automated Exposure Control and Iterative Reconstruction dose reducing techniques were utilized. Contrast: Omnipaque 300 90 mL Findings: The lung bases are grossly clear. The liver is unremarkable. Gallbladder is distended with several gallstones present. The spleen with accessory splenule, pancreas and adrenal glands are within normal limits. Areas of cortical loss in the upper the left kidney. Tiny low-attenuation foci are seen in both kidneys which are too small to definitively characterize. No abdominal or pelvic adenopathy. Metallic streak artifact from a left hip replacement. The visualized bladder is grossly normal. No evidence of a bowel obstruction. The appendix is normal. Bone windows show slight worsening in the superior endplate compression fracture of L3. No additional acute osseous findings. Impression: 1. No acute disease process seen in the abdomen or pelvis. 2. Slight worsening in the recent superior endplate compression fracture of L3, with less than 15% height loss. 3. Distended gallbladder with cholelithiasis but no specific CT findings to suggest acute cholecystitis. There is a preliminary report by [employer]. .
[2017-08-25] MEDS: HYDROCODONE/APAP 5mg/325mg TABLET PO PRN ×2 (09:44→17:54)
--- NOTE | 2017-08-25 09:53 | XRay Report ---
Indication: Left hip pain after a recent fall PROCEDURE: XR pelvis w/ 1 view LT hip: Encounter: Initial Comparison: Pelvis radiograph dated August 04, [address] abdomen and pelvis from yesterday Findings: Left hip prosthesis appears intact. No acute fracture or dislocation seen. Moderate degenerative change in the right hip with ring osteophytes on the femoral head. Mild bony demineralization. Impression: No acute osseous abnormality. .
--- NOTE | 2017-08-25 10:47 | Orthopedic Consult Note ---
Orthopedic Consultation HPI - Consultation Info Consult Date: 08/25/17 Attending Physician: Anant Ruano MD Consult Reason: joint pain, fracture, low back pain - History of Present Illness Mrs. Reynolds is an 81 year old female who is admitted under the care of the hospital service for Left hip pain and lower back pain. Maria Del Carmen had a left hip endoprosthesis in July of [address] Ruano. Her post op care and early recovery went well. Maria Del Carmen has a history of poor balance and falls which have resulted in previous orthopaedic injuries including a left hip endoprosthesis and L3 compression fracture. Orthopaedics is consulted for further evaluation of her hip and back pain. She notes she has had some recent falls. Her pain is located mainly in her left lumbar back, roughly at the level of the iliac crests, radiating to the left SI joint and anterior medial groin. Her pain is worse with weight bearing, better with laying down and drawing her knees up. She has not noticed a change in peripheral sensation, or change in peripheral motor control, or change in ability to control bowel or bladder. She does have chronic bladder issues. Noteworthy, is that Maria Del Carmen has had some weakness in the left foot for quite some time. This manifests with dorsiflexion of the ankle and when testing her EHL strength. She has not tried any bracing, or back surgery in the past. Her baseline level of ambulation is independent with a walker. Her initial work up has included an abdominal CT which shows cholelithiasis, acute on chronic L3 compression fracture. The left hip on the CT is incompletely visualized, although visualized portions do not show fracture or dislocation. We have also have obtained an AP pelvis and lateral left hip and compared the films with previous post op X-rays taken in the orthopaedic clinic. Their is no evidence of stem subsidence or acute fracture. Review of Systems - Constitutional Constitutional: Absent: headache(s) - EENT Eyes: Absent: change in vision, diplopia Ears, nose, mouth, throat: Absent: lightheadedness - Cardiovascular Cardiovascular: Absent: chest pain Vascular: Absent: unilateral swelling - Respiratory Respiratory: Absent: cough - Gastrointestinal Gastrointestinal: Absent: abdominal pain - Genitourinary Genitourinary General: Absent: night sweats - Musculoskeletal Musculoskeletal: Present: as per HPI, abnormal gait, muscle weakness, joint pain - Integumentary/Breasts Integumentary: Present: wounds (burn on lower back). Absent: erythema - Neurological Neurological: Present: abnormal gait, focal weakness - Psychiatric Psychiatric: Absent: difficulty concentrating - Hematologic/Lymphatic Hematologic/Lymphatic: Absent: easy bleeding PFSH Patient Stated Medical History Peripheral Neuropathy Yes: peripheral neuropathy Cataracts Yes: removed Hx Incontinence Yes Hx Urinary Tract Infection Yes: multiple, chronic Osteoarthritis Yes Depression Yes: [facility] Medical History Weakness (Resolved Medical) History of recent fall (Acute Medical) Vertebral fracture (Acute Medical) Vertebral fracture (Acute Medical) Vertigo (Acute Medical) Sacral fracture, closed (Acute Medical) Recurrent UTI (urinary tract infection) (Resolved Medical) Frequent falls (Acute Medical) Memory loss (Chronic Medical) C. difficile colitis (Resolved Medical) Hypokalemia (Resolved Medical) Leg weakness, bilateral (Acute Medical) Weakness (Acute Medical) Unable to bear weight (Acute Medical) Uncontrolled pain (Acute Medical) Left hip pain (Acute Medical) Lumbar compression fracture (Acute Medical) Hip pain, acute (Acute Medical) Laceration of head (Inactive Medical) Medical History Updates: Hypothyroidism. urinary incontinence. vertigo Surgical History: Hysterectomy, orthopedic surgery. BS and O with hysterectomy. Bilateral cataract procedure. Right total knee replacement. She has had 2 surgeries on her left hip. - Social History Smoking status: Never smoker Medications Home Medications Medication Instructions Recorded Confirmed Type Levothyroxine Tab [Synthroid] 100 mcg PO ACB #0 04/22/13 08/24/17 History Acetaminophen [Acetaminophen Extra 1,000 mg PO Q4H PRN #0 10/18/15 08/24/17 History Strength] Sertraline HCl 50 mg PO DAILY #0 08/04/16 08/24/17 History Omeprazole 20 mg PO ACB #0 cap 11/25/16 08/24/17 History Cranberry Fruit Extract [Cranberry] 200 mg PO DAILY 07/03/17 08/24/17 History Fexofenadine [Nelly] 180 mg PO DAILY 07/03/17 08/24/17 History Lactobacillus Acidophilus 1 each PO DAILY 08/04/17 08/24/17 History [Digestive Probiotic] Multivitamin [One Daily 1 each PO DAILY 08/04/17 08/24/17 History Multivitamin] Meloxicam [Meloxicam] 15 mg PO DAILY 08/24/17 08/24/17 History MetroNIDAZOLE [Flagyl] 500 mg PO BID 08/24/17 08/24/17 History Nitrofurantoin Monohyd/M-Cryst 100 mg PO DAILY 08/24/17 08/24/17 History [Macrobid 100 mg Capsule] Allergies Allergy/AdvReac Type Severity Reaction Status Date / Time No Known Allergies Allergy Verified 08/24/17 19:02 Orthopedic Exam Vital signs: Temperature 96.5 F L 08/25/17 08:28 Pulse Rate 63 08/25/17 08:28 Respiratory Rate 16 08/25/17 08:28 Blood Pressure 178/72 H 08/25/17 08:28 Pulse Oximetry 95 08/25/17 08:28 - Constitutional General Appearance: Present: alert, orientated x3, no acute distress - Respiratory Exam Present: wheezes, non-labored - Cardiovascular Exam Capillary Refill: < 2-3 Seconds - Abdominal Exam Present: soft. Absent: tenderness Comments: nontender to palpation all four quadrants. Neg Cox's sign, Neg McBurney's point. No rebound or distension. - Extremities Exam Present: no edema, non tender, pulses intact. Absent: calf tenderness, Doris's sign Comments: log roll of the left hip produces no hip pain. Lumbar back. TTP at level of L3, and left SI joint. peripheral neuro exam is 4 /5 with left dorsiflexion and EHL, but note this is her baseline from months ago. - Integumentary Exam Present: pink, warm, dry, intact - Lymphatic Lymphatic: Absent: lymphedema - Neurological Exam Present: intact to light touch, no deficits - Psychiatric Exam Present: alert, oriented, normal affect - Labs Result Diagrams: 08/25/17 04:00 08/24/17 19:17 Abnormal lab results 08/25/17 Range/Units 04:00 Plt Count 412 H (130-400) T/MM3 Neut % (Auto) 76.7 H (33-66) % Lymph % (Auto) 13.3 L (23-45) % H & H 08/25/17 Range/Units 04:00 Hgb 14.0 (12-16) GM/DL Hct 42.4 (36-46) % Impression and Recommendation (1) Hip pain, acute Current visit: Yes Status: Acute Their does not appear to be an acute hip fracture or change with the prosthesis My suspicion is that her L3 compression fracture is creating some left hip radicular pain. (2) Lumbar compression fracture Current visit: Yes Qualifiers: Lumbar vertebra fracture level: L3 Fracture type: closed Status: Acute LSO for comfort. Pain management as per hospitalist team. Possible referral to a Kyphoplasty specialist. Hospital Course Summary Disclaimer: The visit summary below is not to be considered part of the above Progress Note.
[2017-08-25] MEDS ORDERED: MECLIZINE 12.5 MG TABLET PO PRN (10:50)
[2017-08-25] MEDS ORDERED: FOSFOMYCIN 3 GRAM PACKET PO ONE (10:54)
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
[2017-08-25] MEDS: SILVER SULFADIAZINE 1% CREAM 25 GM TOP SCH (11:25)
[2017-08-25] MEDS: SERTRALINE 50 MG TABLET PO SCH (11:25)
[2017-08-25] MEDS ORDERED: TRIAMCINOLONE 40mg/ml 1ml INJECTION INJ ONE (12:56)
[2017-08-25] MEDS ORDERED: LIDOCAINE 2% (100mg/5mL) PF 5ml vl INFIL ONE (12:57)
[2017-08-25] MEDS ORDERED: BUPIVACAINE ID ONE (13:01)
--- NOTE | 2017-08-25 13:23 | History & Physical Report ---
History of Present Illness Date: 08/25/17 Chief complaint: Intractable back and hip pain, anemia HPI: Maria Del Carmen Reynolds is a very pleasant 81-year-old female resident of [place] whom is well known to the hospitalist service. She reports that on 08/04/17 she fell at home. She has a history of chronic dizziness with frequent falls and states that while standing in her closet, she became dizzy and then woke up on the floor. She was seen at [facility] and found to have a possible nondisplaced fracture of the anterosuperior aspect of L3 as well as a laceration to her scalp which required 4 sanam. She was discharged back home to [place]. She has a history of chronic back and hip pain and states that since her fall, her pain has progressively gotten worse. She describes the pain as dull, achy, constant and significantly worse with movement. She denies any radiation of the pain. History of left hip replacement in 2013. She also reports recent dysuria and lower pelvic pain and was found to have an UTI on 08/21/17 by her PCP. UA culture revealed multidrug resistant E. coli. She was started on Macrobid and Flagyl with improvement in her symptoms. She states that her dysuria resolved after the initiation of the macrobid. She has a history of c.diff during a hospitalization in June 2017 but denies any current diarrhea. Due to her increasing, intractable back and left hip pain as well as concern about her current UTI contributing to her pain, she presented to [facility] for further evaluation and treatment. She denies any recent fevers, chills, chest pain, shortness of breath, headache, changes in vision, nausea, vomiting or diarrhea. In the ED, a CT abdomen/pelvis was obtained and revealed no acute disease process with slight worsening in the recent superior endplate compression fracture of L3, with less than 15% height loss. and distention of her gallbladder with cholelithiasis but no findings to suggest acute cholecystitis. Labs were obtained and revealed mild leukocytosis (11.3), thrombocytosis (440) and mild hypokalemia. Repeat UA was unremarkable with no bacteria, WBC or RBC noted. She received Morphine 2mg in addition to Hawley with some improvement in her pain. She also received Rocephin 1g for antimicrobial coverage of suspected urinary pathogens. Due to her intractable back and hip pain, she was admitted into observation status under the care of Dr. St for further evaluation and treatment. Review of Systems All systems PM: 10-point ROS was reviewed, no additional remarkable complaints except - Constitutional Constitutional: Present: weakness. Absent: chills, fatigue, fever(s), headache( s) Comments: decreased appetite - EENMT Eyes: Absent: change in vision, photophobia Ears: Absent: ear pain Nose: Absent: nosebleeds Mouth/Throat: Absent: sore throat, changes in swallowing, bleeding gums - Cardiovascular Cardiovascular: Absent: chest pain, palpitations, syncope, dyspnea on exertion, orthopnea Vascular: Absent: pedal edema, unilateral swelling - Respiratory Respiratory: Absent: cough, dyspnea, hemoptysis, dyspnea on exertion, wheezing - Gastrointestinal Gastrointestinal: Absent: abdominal pain, constipation, diarrhea, nausea, vomiting - Genitourinary Genitourinary: Present: urinary frequency. Absent: dysuria, flank pain, hematuria - Musculoskeletal Musculoskeletal: Present: abnormal gait, arthralgias, back pain, limited range of motion, muscle weakness. Absent: deformity - Integumentary/Breasts Integumentary: Absent: photosensitivity, rash Integumentary Comments: thermal burn to left lower back from hot rice pack. - Neurological Neurological: Present: abnormal gait, dizziness, weakness. Absent: abnormal speech, focal weakness, headache(s) - Psychiatric Psychiatric: Absent: anxiety, depression - Endocrine Endocrine: Absent: flushing, palpitations - Hematologic/Lymphatic Hematologic/Lymphatic: Absent: easy bruising - Allergic/Immunologic Allergic/Immunologic: Absent: seasonal rhinorrhea [facility] Patient Stated Medical History Peripheral neuropathy. Cataracts. History of urinary incontinence. History of recurrent UTI. Osteoarthritis. Depression. Gait instability. Generalized debility. History of frequent falls. Vertigo. Memory loss. History of C.diff - 06/2017. Chronic back and left hip pain. Urinary incontinence. Surgical History: BSO with hysterectomy. Bilateral cataract procedure. Right total knee replacement. Left hip replacement. Family History: Non-contributory. - Social History Smoking status: Never smoker Substance use type: does not use Alcohol intake frequency: does not drink Housing: correction Current occupational status: retired Does patient use chewing tobacco?: No Current residence: [facility] ([place]) Social history: PCP - Dr. Box. Medications Home Medications Medication Instructions Recorded Confirmed Type RX: Levothyroxine Tab [Synthroid] 100 mcg PO ACB #0 04/22/13 08/24/17 History RX: Acetaminophen [Acetaminophen 1,000 mg PO Q4H PRN #0 10/18/15 08/24/17 History Extra Strength] RX: Sertraline HCl 50 mg PO DAILY #0 08/04/16 08/24/17 History RX: Omeprazole 20 mg PO ACB #0 cap 11/25/16 08/24/17 History RX: Cranberry Fruit Extract 200 mg PO DAILY 07/03/17 08/24/17 History [Cranberry] RX: Fexofenadine [Nelly] 180 mg PO DAILY 07/03/17 08/24/17 History RX: Lactobacillus Acidophilus 1 each PO DAILY 08/04/17 08/24/17 History [Digestive Probiotic] RX: Multivitamin [One Daily 1 each PO DAILY 08/04/17 08/24/17 History Multivitamin] Meloxicam [Meloxicam] 15 mg PO DAILY 08/24/17 08/24/17 History Nitrofurantoin Monohyd/M-Cryst 100 mg PO DAILY 08/24/17 08/24/17 History [Macrobid 100 mg Capsule] RX: MetroNIDAZOLE [Flagyl] 500 mg PO BID 08/24/17 08/24/17 History Allergies Allergy/AdvReac Type Severity Reaction Status Date / Time No Known Allergies Allergy Verified 08/24/17 19:02 Exam Vital Signs: Temperature 96.5 F L 08/25/17 08:28 Pulse Rate 63 08/25/17 08:28 Respiratory Rate 16 08/25/17 08:28 Blood Pressure 178/72 H 08/25/17 08:28 Pulse Oximetry 95 08/25/17 08:28 Height/Weight/BMI: Height 5 ft 9 in Weight 130 lb 15.273 oz Body Mass Index 19.3 - Constitutional Present: no acute distress, well nourished, well developed, thin, cooperative Comments: Patient is resting in bed, on her left side with pillow under her head; arouses easily and converses without difficulty. - Routine HEENT Exam Head: Present: normocephalic, atraumatic Eye: Present: PERRL. Absent: conjunctival icterus ENT: Present: mucous membranes moist - Routine Neck Exam Present: supple, full ROM, trachea midline - Routine Respiratory Exam Present: CTA bilaterally. Absent: stridor, wheezes, crackles - Routine Cardiovascular Exam Present: RRR, S1, S2 - Routine Abdominal Exam Present: soft, normoactive bowel sounds, non distended, non tender. Absent: rebound - Routine Extremities Exam Present: no edema, pulses intact Comments: tenderness to left iliac crest with palpation; 2+ pedal pulses bilaterally. - Routine Back/Spine/Pelvis Exam Comments: limited ROM of spine secondary to lower back and left hip pain; - Routine Skin Exam Present: dry, warm. Absent: jaundice Comments: beefy red area to left lower back secondary to thermal burn prior to arrival from hot rice pack being used for comfort; no red streaking; serous fluids noted. - Routine Neurological Exam Present: alert, oriented X3, moving all extremities, hearing grossly intact, normal speech - Routine Psychiatric Exam Present: normal affect, cooperative Results - Labs CBC & Chem 7: 08/25/17 04:00 08/24/17 19:17 Assessment and Plan (1) Intractable back pain Current visit: Yes Status: Acute (2) Vertebral fracture Problem details: L3 Current visit: No Status: Acute (3) Recurrent UTI (urinary tract infection) Problem details: Escherichia coli-resistant Cipro, Levaquin, ampicillin, intermediate sensitivity Augmentin Current visit: No Status: Acute Assessment and Plan: Assessment Intractable lower back and left hip pain, acute on chronic. Hypokalemia, present on admission, acute. Escherichia coli UTI, failed outpatient treatment Altered mental status Ambulatory dysfunction with falls Subacute L3 fracture - 08/04/17 with radiographic worsening. Leukocytosis, present on admission, resolved. Old S3 fracture - 06/2017. Osteoarthritis, chronic. Depression, chronic. Gait instability, chronic. Generalized debility, chronic. Vertigo, chronic. Memory loss, chronic. History of C.diff - 06/2017 - resolved. Plan-08/25/17 (Admission) Admit to observation status under the care of Dr. St. Initial labs on admission revealed leukocytosis (11.3) resolved with IV bolus. Continue to monitor trends. Significant tenderness with movement and palpation of left hip. Repeat left hip x-ray today showed no acute fractures or changes. Dr. Ruano consulted and expected to perform joint injection of pain relief. Appreciate Dr. Ruano's time and expertise. Patient also being evaluated for possible vertebroplasty on . Continue pain control with Hawley, currently maintaining pain around 6/10 without movement. Morphine PRN. Encourage bowel motivation as needed. Recent recurrent UTI secondary to E. coli found on 08/21. Patient was started on macrobid and flagyl given the drug resistance and the patient's history of c.diff in 06/2017. Culture and sensitivity discussed with Dr. Salcedo who recommended discontinuation of the macrobid and recommended fosfomycin x 1 dose. Prophylactic treatment with Flagyl was no recommended at this time. Repeat UA in ED was unremarkable and patient denies current urinary symptoms and remains afebrile. She was given a dose of Rocephin 1g in ED prior to admission for coverage of urinary pathogens given her pain and leukocytosis. Hypokalemia noted on admission. KCl 20 mEq given x 1 dose. Repeat CBC and BMP in AM to monitor blood counts, electrolytes and renal function. Blood pressure noted on admission at 178/72. She denies a history of hypertension. Will discuss treatment recommendations with Dr. St given the patient's history of dizziness and possible syncopal episodes in the past. Patient will likely need inpatient rehabilitation and placement. Appreciate the assistance of social work. Upon discharge, patient's care will be returned to her PCP, Dr. Box. 08/25/17 [id number] M.D.: I have independently evaluated and examined this patient. I reviewed the chart, the patient's history, and the HEALTH CARE SOCIAL WORKER/PA's documented findings as above. We discussed and formulated the assessment and plan as above with additions as below: Mrs. Reynolds describes 3 falls since discharge but timing of the events is unclear and she interchanges details of 1 fall with another and one ER visit/ admission with another; she talks about an ER visit a week ago and it's unclear if she is referring to the ER visit on 08/04 or last night. Nonetheless the patient reports that she's had increasing low back pain and pelvic pain/left hip pain over the past week with pelvic pain increasing overnight with patient attributing to movement with transfer from the emergency room stretcher to hospital bed. Back pain has been escalating over about 10 days. She reports worsening of vertigo since discharge from rehabilitation roughly one month ago. She denies radicular pain in her left leg and does not describe sensory loss or bowel or bladder dysfunction. She's recently been treated for urinary tract infection as described above. L3 compression fracture was initially identified during ER evaluation on 08/[address] and current imaging demonstrates some worsening compared to original study. Slipped/slid down the wall in the bathroom 08/20 with increased L-sided pain evolving thereafter per Dr. Reynolds. On examination the patient is pleasant and appears comfortable lying flat but reports that movement causes increased pain. Gaze is conjugate and no overt nystagmus was seen that the patient became uncomfortable with left lateral gaze Respirations are nonlabored and breath sounds are clear anteriorly and laterally Abdomen is benign There is tenderness with pelvic walk and palpation over the iliac crests and superior/inferior pubic rami. No tenderness over greater trochanters laterally. The patient is able to raise each leg off the bed independently and hold them up briefly but cannot hold them up against resistance; dorsiflexion/ plantarflexion are weak bilaterally but worse on the left than the right and she has minimal dorsiflexion on the left-an old finding per physical therapy. CT of the abdomen and pelvis reviewed by myself-gallbladder distended that no other acute intra-abdominal pathology present; L3 compression fractures previously described, no pelvic fractures identified. Laboratory data reviewed and as previously described by [facility]. Urine culture/ sensitivities discussed with Dr. Box. Patient has been evaluated by Dr. Ruano and SI joint injection performed to minimize discomfort in the left hip/pelvis. PT/OT consults initiated. Patient reports she's been using 10 mg of acetaminophen for pain control-record reflects 1000 mg every 4 hours prn with inadequate pain control. Will require narcotics short-term; may benefit from tramadol. Will initiate scheduled and prn low-dose Hawley. Previously had MRI of the lumbar spine in 2013 and 07/02 demonstrating diffuse disc disease-may require repeat imaging to better define both current compression fracture and to look for alternate pathology causing presenting symptoms and ambulatory dysfunction. At that time central spinal stenosis was not described although moderate neuroforaminal stenosis was present at several levels. d/w Dr. Ruano and Dr. Box in addition to Dr. Reynolds. DVT Prophylaxis: SCD's GI Prophylaxis: other (Prilosec) Resuscitation Status: Do Not Resuscitate - Time spent with patient Time with patient PN: 70 minutes Hospital Course Summary Disclaimer: The visit summary below is not to be considered part of the above Progress Note. Hospital Course: 08/25/17 13:43 Mrs. Reynolds is an 81 year old female who is admitted under the care of the hospital service for Left hip pain and lower back pain. Maria Del Carmen had a left hip endoprosthesis in July [address] Ruano. Her post op care and early recovery went well. Maria Del Carmen has a history of poor balance and falls which have resulted in previous orthopaedic injuries including a left hip endoprosthesis and L3 compression fracture. Orthopaedics is consulted for further evaluation of her hip and back pain. She notes she has had some recent falls. Her pain is located mainly in her left lumbar back, roughly at the level of the iliac crests, radiating to the left SI joint and anterior medial groin. Her pain is worse with weight bearing, better with laying down and drawing her knees up. She has not noticed a change in peripheral sensation, or change in peripheral motor control, or change in ability to control bowel or bladder. She does have chronic bladder issues. Noteworthy, is that Maria Del Carmen has had some weakness in the left foot for quite some time. This manifests with dorsiflexion of the ankle and when testing her EHL strength. She has not tried any bracing, or back surgery in the past. Her baseline level of ambulation is independent with a walker. Her initial work up has included an abdominal CT which shows cholelithiasis, acute on chronic L3 compression fracture. The left hip on the CT is incompletely visualized, although visualized portions do not show fracture or dislocation. We have also have obtained an AP pelvis and lateral left hip and compared the films with previous post op X-rays taken in the orthopaedic clinic. Their is no evidence of stem subsidence or acute fracture. Assessment Intractable lower back and left hip pain, acute on chronic. Hypokalemia, present on admission, acute. Leukocytosis, present on admission, resolved. Subacute L3 fracture - 08/04/17. Subacute S3 fracture - 06/2017. Osteoarthritis, chronic. Depression, chronic. Gait instability, chronic. Generalized debility, chronic. History of frequent falls, chronic. Vertigo, chronic. Memory loss, chronic. History of C.diff - 06/2017 - resolved. Plan-08/25/17 (Admission) Admit to observation status under the care of Dr. St. Initial labs on admission revealed leukocytosis (11.3) resolved with IV bolus. Continue to monitor trends. Significant tenderness with movement and palpation of left hip. Repeat left hip x-ray today showed no acute fractures or changes. Dr. Ruano consulted and expected to perform joint injection of pain relief. Appreciate Dr. Ruano's time and expertise. Patient also being evaluated for possible vertebroplasty on . Continue pain control with Hawley, currently maintaining pain around 6/10 without movement. Morphine PRN. Encourage bowel motivation as needed. Recent recurrent UTI secondary to E. coli found on 08/21. Patient was started on macrobid and flagyl given the drug resistance and the patient's history of c.diff in 06/2017. Culture and sensitivity discussed with Dr. Salcedo who recommended discontinuation of the macrobid and recommended fosfomycin x 1 dose. Prophylactic treatment with Flagyl was no recommended at this time. Repeat UA in ED was unremarkable and patient denies current urinary symptoms and remains afebrile. She was given a dose of Rocephin 1g in ED prior to admission for coverage of urinary pathogens given her pain and leukocytosis. Hypokalemia noted on admission. KCl 20 mEq given x 1 dose. Repeat CBC and BMP in AM to monitor blood counts, electrolytes and renal function. Blood pressure noted on admission at 178/72. She denies a history of hypertension. Will discuss treatment recommendations with Dr. St given the patient's history of dizziness and possible syncopal episodes in the past. Patient will likely need inpatient rehabilitation and placement. Appreciate the assistance of social work. Upon discharge, patient's care will be returned to her PCP, Dr. Box.
[2017-08-25] MEDS: NS with KCL 20 mEq 1,000 ML IV SCH (19:55)
[2017-08-25] MEDS: HYDROCODONE/APAP 5mg/325mg TABLET PO SCH (21:32)
[2017-08-26] MEDS: HYDROCODONE/APAP 5mg/325mg TABLET PO PRN ×2 (02:54→06:30)
[2017-08-26] MEDS: MORPHINE SULFATE 2mg INJECTION IVP PRN (04:53)
[2017-08-26] MEDS: LEVOTHYROXINE 100 MCG TABLET PO SCH (06:30)
[2017-08-26] MEDS: OMEPRAZOLE 20 MG CAPSULE PO SCH (06:30)
[2017-08-26] MEDS: CRANBERRY FRUIT EXTRACT 200 MG PO SCH (08:58)
[2017-08-26] MEDS: HYDROCODONE/APAP 5mg/325mg TABLET PO SCH ×4 (09:04→20:10)
[2017-08-26] MEDS: FEXOFENADINE 180 MG TABLET PO SCH (09:04)
[2017-08-26] MEDS: LACTOBACILLUS (15B cfu) CAPSULE PO SCH (09:04)
[2017-08-26] MEDS: MULTI-VITAMIN PLAIN TABLET PO SCH (09:05)
[2017-08-26] MEDS: MELOXICAM 15 MG TABLET PO SCH (09:05)
[2017-08-26] MEDS: SERTRALINE 50 MG TABLET PO SCH (09:05)
--- NOTE | 2017-08-26 12:04 | Procedure Note ---
DATE OF SURGERY 08/25/2017 PREPROCEDURE DIAGNOSIS PSIS tendonitis in low back. POSTOPERATIVE DIAGNOSIS PSIS tendonitis in low back. PROCEDURE Injection with corticosteroid to left PSIS. SURGEON Nael Ruano MD ANESTHESIA Local. DESCRIPTION OF PROCEDURE After oral consent was obtained the skin over the left posterior superior iliac spine was prepped with ChloraPrep. A 21-gauge needle was then used to inject 40 mg of Kenalog, 2 mL of 0.25% Marcaine and 2 mL of 1% lidocaine into the tendinous region around the PSIS. The needle was removed. The site was cleaned with alcohol. A Band-Aid was placed. She tolerated this well. There were no complications. LACI
--- NOTE | 2017-08-26 13:09 | Progress Note ---
<Sari Moreno D - Last Filed: 08/26/17 13:06> - Date 08/26/17 Subjective: Maria Del Carmen was seen as lunch was being served. She reports that she rested well last night and she feels better today. She's still a little dizzy but not as weak and fatigued. She hasn't had much lower back pain so far today. No SOA or chest pain. Denies abdominal pain or GI complaints. Objective Vital signs: Temperature 97.5 F 08/26/17 07:35 Pulse Rate 58 L 08/26/17 07:35 Respiratory Rate 16 08/26/17 07:35 Blood Pressure 173/75 H 08/26/17 07:35 Pulse Oximetry 95 08/26/17 07:35 Height/Weight/BMI: Weight 59.8 kg - Constitutional Present: no acute distress, well nourished, well developed, thin - Routine HEENT Exam Eye: Present: PERRL. Absent: conjunctival icterus ENT: Present: mucous membranes moist, oropharynx clear - Routine Respiratory Exam Present: CTA bilaterally - Routine Cardiovascular Exam Present: RRR, S1, S2 - Routine Abdominal Exam Present: soft, normoactive bowel sounds (hyperactive), non tender - Routine Extremities Exam Present: no edema, pulses intact - Routine Skin Exam Present: intact, dry, warm - Routine Neurological Exam Present: alert, oriented X3, CN II-XII intact, normal speech - Routine Psychiatric Exam Present: normal affect, normal thought process, cooperative Results - Labs CBC & Chem 7: 08/26/17 05:43 08/26/17 05:43 Assessment and Plan (1) Vertebral fracture Problem details: L3 Current visit: No Status: Acute (2) Recurrent UTI (urinary tract infection) Problem details: Escherichia coli-resistant Cipro, Levaquin, ampicillin, intermediate sensitivity Augmentin Current visit: No Status: Acute (3) Intractable back pain Current visit: Yes Status: Acute Assessment and Plan: Assessment Intractable lower back and left hip pain, acute on chronic. Hypokalemia, present on admission, resolved Escherichia coli UTI, failed outpatient treatment Altered mental status Ambulatory dysfunction with falls Subacute L3 fracture - 08/04/17 with radiographic worsening. Leukocytosis, present on admission, resolved. Old S3 fracture - 06/2017. Osteoarthritis, chronic. Depression Gait instability Generalized debility Vertigo, chronic. Memory loss, chronic. History of C.diff - 06/2017 - resolved. Plan Pain improved today after PSIS steroid injection yesterday. MRI lumbar spine done this am - report pending. Continue Mobic, [place] PRN. Labs reviewed - WBC normal, hgb normal, platelets still high but trending down; BMP unremarkable and hypokalemia has been corrected. Eval by PT/OT yesterday - recommending IP PT and skilled OT. Per ortho - LSO for comfort, consider kyphoplasty. Hospital Course Summary Disclaimer: The visit summary below is not to be considered part of the above Progress Note. Hospital Course: 08/25/17 13:43 Mrs. Reynolds is an 81 year old female who is admitted under the care of the hospital service for Left hip pain and lower back pain. Maria Del Carmen had a left hip endoprosthesis in July [address] Ruano. Her post op care and early recovery went well. Maria Del Carmen has a history of poor balance and falls which have resulted in previous orthopaedic injuries including a left hip endoprosthesis and L3 compression fracture. Orthopaedics is consulted for further evaluation of her hip and back pain. She notes she has had some recent falls. Her pain is located mainly in her left lumbar back, roughly at the level of the iliac crests, radiating to the left SI joint and anterior medial groin. Her pain is worse with weight bearing, better with laying down and drawing her knees up. She has not noticed a change in peripheral sensation, or change in peripheral motor control, or change in ability to control bowel or bladder. She does have chronic bladder issues. Noteworthy, is that Maria Del Carmen has had some weakness in the left foot for quite some time. This manifests with dorsiflexion of the ankle and when testing her EHL strength. She has not tried any bracing, or back surgery in the past. Her baseline level of ambulation is independent with a walker. Her initial work up has included an abdominal CT which shows cholelithiasis, acute on chronic L3 compression fracture. The left hip on the CT is incompletely visualized, although visualized portions do not show fracture or dislocation. We have also have obtained an AP pelvis and lateral left hip and compared the films with previous post op X-rays taken in the orthopaedic clinic. Their is no evidence of stem subsidence or acute fracture. Assessment Intractable lower back and left hip pain, acute on chronic. Hypokalemia, present on admission, acute. Leukocytosis, present on admission, resolved. Subacute L3 fracture - 08/04/17. Subacute S3 fracture - 06/2017. Osteoarthritis, chronic. Depression, chronic. Gait instability, chronic. Generalized debility, chronic. History of frequent falls, chronic. Vertigo, chronic. Memory loss, chronic. History of C.diff - 06/2017 - resolved. Plan-08/25/17 (Admission) Admit to observation status under the care of Dr. St. Initial labs on admission revealed leukocytosis (11.3) resolved with IV bolus. Continue to monitor trends. Significant tenderness with movement and palpation of left hip. Repeat left hip x-ray today showed no acute fractures or changes. Dr. Ruano consulted and expected to perform joint injection of pain relief. Appreciate Dr. Ruano's time and expertise. Patient also being evaluated for possible vertebroplasty on . Continue pain control with [place], currently maintaining pain around 6/10 without movement. Morphine PRN. Encourage bowel motivation as needed. Recent recurrent UTI secondary to E. coli found on 08/21. Patient was started on macrobid and flagyl given the drug resistance and the patient's history of c.diff in 06/2017. Culture and sensitivity discussed with Dr. Salcedo who recommended discontinuation of the macrobid and recommended fosfomycin x 1 dose. Prophylactic treatment with Flagyl was no recommended at this time. Repeat UA in ED was unremarkable and patient denies current urinary symptoms and remains afebrile. She was given a dose of Rocephin 1g in ED prior to admission for coverage of urinary pathogens given her pain and leukocytosis. Hypokalemia noted on admission. KCl 20 mEq given x 1 dose. Repeat CBC and BMP in AM to monitor blood counts, electrolytes and renal function. Blood pressure noted on admission at 178/72. She denies a history of hypertension. Will discuss treatment recommendations with Dr. St given the patient's history of dizziness and possible syncopal episodes in the past. Patient will likely need inpatient rehabilitation and placement. Appreciate the assistance of social work. Upon discharge, patient's care will be returned to her PCP, Dr. Box. 08/26/17 Pain improved today after PSIS steroid injection yesterday. MRI lumbar spine done this am - report pending. Continue Mobic, [place] PRN. Labs reviewed - WBC normal, hgb normal, platelets still high but trending down; BMP unremarkable and hypokalemia has been corrected. Eval by PT/OT yesterday - recommending IP PT and skilled OT. Per ortho - LSO for comfort, consider kyphoplasty. <Pat St - Last Filed: 08/26/17 18:26> - Date 08/26/17 Objective Height/Weight/BMI: Results - Labs CBC & Chem 7: 08/26/17 05:43 08/26/17 05:43 Assessment and Plan (1) Intractable back pain Current visit: Yes Status: Acute (2) Vertebral fracture Problem details: L3 Current visit: No Status: Acute (3) Recurrent UTI (urinary tract infection) Problem details: Escherichia coli-resistant Cipro, Levaquin, ampicillin, intermediate sensitivity Augmentin Current visit: No Status: Acute Assessment and Plan: I have independently evaluated and examined this patient. I reviewed the chart, the patient's history, and the [employer]/PA's documented findings as above. We discussed and formulated the assessment and plan as above with additions as below: Mrs. Reynolds reports that back pain is not as bad today as it was yesterday and that she's been able to walk short distances with nursing staff assistance. She' s sleeping a lot and feels like she is a little drugged. She has not had a bowel movement and is concerned about constipation. She denies difficulty urinating and denied dysuria. Tolerating LSO brace well. NAD, alert, cooperative Respirations nonlabored, good airflow, breath sounds clear Abdomen soft Mild generalized tenderness in the low back without focal tenderness MRI completed-formal report pending however there is evidence of acute compression deformity at L3 and moderately significant central stenosis at several levels by my review Due to excess somnolence will decrease scheduled [place] to 3 times a day. Increase Senokot to 2 tablets twice a day and add MiraLAX for constipation. IV morphine required overnight but has not needed routinely during the day today. Ambulate with nursing several times daily. DVT Prophylaxis: SCD's Resuscitation Status: Do Not Resuscitate Hospital Course Summary Disclaimer: The visit summary below is not to be considered part of the above Progress Note.
[2017-08-26] MEDS: NS with KCL 20 mEq 1,000 ML IV SCH (17:21)
[2017-08-26] MEDS: ACETAMINOPHEN 500 MG TABLET PO PRN (17:24)
[2017-08-26] MEDS: POLYETHYL GLYCOL 3350 17gm PACKET PO SCH (18:46)
[2017-08-26] MEDS: SENNA + DOCUSATE TABLET PO SCH (20:11)
[2017-08-26] MEDS ORDERED: SENNA + DOCUSATE TABLET PO SCH (21:00)
[2017-08-27] MEDS: MORPHINE SULFATE 2mg INJECTION IVP PRN (06:08)
[2017-08-27] MEDS: LEVOTHYROXINE 100 MCG TABLET PO SCH (06:08)
[2017-08-27] MEDS: OMEPRAZOLE 20 MG CAPSULE PO SCH (06:08)
[2017-08-27] MEDS: HYDROCODONE/APAP 5mg/325mg TABLET PO SCH ×3 (09:20→20:10)
[2017-08-27] MEDS: CRANBERRY FRUIT EXTRACT 200 MG PO SCH (09:21)
[2017-08-27] MEDS: POLYETHYL GLYCOL 3350 17gm PACKET PO SCH (09:26)
[2017-08-27] MEDS: SENNA + DOCUSATE TABLET PO SCH (09:26)
[2017-08-27] MEDS: SERTRALINE 50 MG TABLET PO SCH (09:27)
[2017-08-27] MEDS: MELOXICAM 15 MG TABLET PO SCH (09:27)
[2017-08-27] MEDS: LACTOBACILLUS (15B cfu) CAPSULE PO SCH (09:27)
[2017-08-27] MEDS: FEXOFENADINE 180 MG TABLET PO SCH (09:27)
[2017-08-27] MEDS: MULTI-VITAMIN PLAIN TABLET PO SCH (09:28)
--- NOTE | 2017-08-27 09:35 | Magnetic Resonance Report ---
Indication: left radicular pain, falls, L3 comp fx PROCEDURE: MR lumbar spine wo con: Encounter: Initial Comparison: CT abdomen and pelvis dated August 24, 2017 and MRI lumbar spine dated July 04, 2017 Technique: Multiplanar multisequence MR imaging of the lumbar spine was performed without contrast. Findings: Alignment lumbar spine is stable. Acute L3 superior endplate compression fractures noted with adjacent marrow edema and trace fluid. No additional acute fracture seen. Old mild endplate compression fractures at L1, L2 and L4. Conus medullaris terminates normally at L1. The paraspinal soft tissues show gallstones but no acute findings. Segmental analysis: L1-L2: Central disk protrusion with mild degenerative facet disease and mild central canal narrowing. No significant neural foraminal stenosis. L2-L3: Mild disk bulge with slight retropulsion from the fracture combined to cause moderate central canal stenosis. This is only minimally worsened from the comparison. Mild left neural foraminal stenosis. No right foraminal narrowing L3-L4: Disk height loss with a lateral bulging but no central protrusion or central canal stenosis. Degenerative facet hypertrophy with mild right neural foraminal stenosis. No significant left foraminal narrowing. This is stable. L4-L5: Right lateral osteophytes. Mild degenerative facet change. No significant central canal stenosis. Moderate right and mild to moderate left neural foraminal stenosis. This is unchanged. L5-S1: Mild annular disk bulge and degenerative facet change causing mild central canal narrowing. Mild right and moderate left neural foraminal stenosis. This is stable. Impression: Acute mild superior endplate fracture of L3. Otherwise relatively stable multilevel degenerative changes. .
[2017-08-27] MEDS: NS with KCL 20 mEq 1,000 ML IV SCH (17:03)
--- NOTE | 2017-08-27 17:59 | Progress Note ---
- Date 08/27/17 Subjective: Mrs. Reynolds complaints of nausea and vertigo (she attributes nausea to the vertigo) and mild headache. She reports that her eyes went to roll back in her head because of the headache. She has been able to ambulate to the bathroom with nursing assistance. She continues to complain of excess fatigue from morphine and was lethargic this morning after morphine and subsequently did not take [place] earlier today. Back pain is ongoing although a little better currently than it was overnight and this morning. She has been able to eat some of her food has had no emesis and has had a bowel movement earlier today. She denied dysuria and reports she is voiding well. Nursing reports that she's taking fluids well. Objective Vital signs: Temperature 97.0 F 08/27/17 15:44 Pulse Rate 63 08/27/17 15:44 Respiratory Rate 16 08/27/17 15:44 Blood Pressure 165/79 H 08/27/17 15:44 Pulse Oximetry 96 08/27/17 15:44 NAD, drowsy response to questions appropriately Conjunctiva clear, no nystagmus present, EOMI Respirations nonlabored, good airflow, breath sounds clear Regular rhythm, S1-S2 Abdomen soft, nontender, bowel sounds present Extremities without edema Flat affect Height/Weight/BMI: Weight 59.8 kg Results - Labs CBC & Chem 7: 08/26/17 05:43 08/26/17 05:43 - Imaging and Cardiology MRI- Status: image reviewed by me MRI-L spine Status: image reviewed by me (acute L3 superior endplate compression fracture; moderate central stenosis at L2-L3, slightly worse than last study in June 2017, mild central narrowing at L5-S1; multilevel degenerative changes with some neuroforaminal narrowing) Assessment and Plan (1) Intractable back pain Current visit: Yes Status: Acute (2) Vertebral fracture Problem details: L3 Current visit: No Status: Acute (3) Recurrent UTI (urinary tract infection) Problem details: Escherichia coli-resistant Cipro, Levaquin, ampicillin, intermediate sensitivity Augmentin Current visit: No Status: Acute Assessment and Plan: Assessment Intractable lower back and left hip pain, acute on chronic. Hypokalemia, present on admission, resolved Escherichia coli UTI, failed outpatient treatment Altered mental status Ambulatory dysfunction with falls Subacute L3 fracture - 08/04/17 with radiographic worsening. Leukocytosis, present on admission, resolved. Old S3 fracture - 06/2017. Osteoarthritis, chronic. Depression Gait instability Generalized debility Vertigo, chronic. Memory loss, chronic. History of C.diff - 06/2017 - resolved. Plan Mrs. Reynolds continues to have excessive somnolence/nausea with morphine, discontinued and will try low-dose IV Dilaudid if IV medications needed. Have again recommended that she use scheduled [place] to try to maintain some basal pain control. If doesn't tolerate [place] could alternately try Percocet. Formal MRI report available and confirms acute L3 endplate compression fracture- have tentatively scheduled vertebral plasty for tomorrow. Continue PT/OT, LSO brace for comfort. UTI treated. Potassium remained stable. Antiemetics available as needed. Blood pressure persistently elevated, no formal orthostatics available but blood pressure does not drop sitting. Low-dose amlodipine initiated. High-risk medications in use. Nursing provide supplemental history. Hospital Course Summary Disclaimer: The visit summary below is not to be considered part of the above Progress Note. Hospital Course: 08/25/17 13:43 Mrs. Reynolds is an 81 year old female who is admitted under the care of the hospital service for Left hip pain and lower back pain. Maria Del Carmen had a left hip endoprosthesis in July [address] Ruano. Her post op care and early recovery went well. Maria Del Carmen has a history of poor balance and falls which have resulted in previous orthopaedic injuries including a left hip endoprosthesis and L3 compression fracture. Orthopaedics is consulted for further evaluation of her hip and back pain. She notes she has had some recent falls. Her pain is located mainly in her left lumbar back, roughly at the level of the iliac crests, radiating to the left SI joint and anterior medial groin. Her pain is worse with weight bearing, better with laying down and drawing her knees up. She has not noticed a change in peripheral sensation, or change in peripheral motor control, or change in ability to control bowel or bladder. She does have chronic bladder issues. Noteworthy, is that Maria Del Carmen has had some weakness in the left foot for quite some time. This manifests with dorsiflexion of the ankle and when testing her EHL strength. She has not tried any bracing, or back surgery in the past. Her baseline level of ambulation is independent with a walker. Her initial work up has included an abdominal CT which shows cholelithiasis, acute on chronic L3 compression fracture. The left hip on the CT is incompletely visualized, although visualized portions do not show fracture or dislocation. We have also have obtained an AP pelvis and lateral left hip and compared the films with previous post op X-rays taken in the orthopaedic clinic. Their is no evidence of stem subsidence or acute fracture. Assessment Intractable lower back and left hip pain, acute on chronic. Hypokalemia, present on admission, acute. Leukocytosis, present on admission, resolved. Subacute L3 fracture - 08/04/17. Subacute S3 fracture - 06/2017. Osteoarthritis, chronic. Depression, chronic. Gait instability, chronic. Generalized debility, chronic. History of frequent falls, chronic. Vertigo, chronic. Memory loss, chronic. History of C.diff - 06/2017 - resolved. Plan-08/25/17 (Admission) Admit to observation status under the care of Dr. St. Initial labs on admission revealed leukocytosis (11.3) resolved with IV bolus. Continue to monitor trends. Significant tenderness with movement and palpation of left hip. Repeat left hip x-ray today showed no acute fractures or changes. Dr. Ruano consulted and expected to perform joint injection of pain relief. Appreciate Dr. Ruano's time and expertise. Patient also being evaluated for possible vertebroplasty on . Continue pain control with [place], currently maintaining pain around 6/10 without movement. Morphine PRN. Encourage bowel motivation as needed. Recent recurrent UTI secondary to E. coli found on 08/21. Patient was started on macrobid and flagyl given the drug resistance and the patient's history of c.diff in 06/2017. Culture and sensitivity discussed with Dr. Salcedo who recommended discontinuation of the macrobid and recommended fosfomycin x 1 dose. Prophylactic treatment with Flagyl was no recommended at this time. Repeat UA in ED was unremarkable and patient denies current urinary symptoms and remains afebrile. She was given a dose of Rocephin 1g in ED prior to admission for coverage of urinary pathogens given her pain and leukocytosis. Hypokalemia noted on admission. KCl 20 mEq given x 1 dose. Repeat CBC and BMP in AM to monitor blood counts, electrolytes and renal function. Blood pressure noted on admission at 178/72. She denies a history of hypertension. Will discuss treatment recommendations with Dr. St given the patient's history of dizziness and possible syncopal episodes in the past. Patient will likely need inpatient rehabilitation and placement. Appreciate the assistance of social work. Upon discharge, patient's care will be returned to her PCP, Dr. Box. 08/26/17 Pain improved today after PSIS steroid injection yesterday. MRI lumbar spine done this am - report pending. Continue Mobic, [place] PRN. Labs reviewed - WBC normal, hgb normal, platelets still high but trending down; BMP unremarkable and hypokalemia has been corrected. Eval by PT/OT yesterday - recommending IP PT and skilled OT. Per ortho - LSO for comfort, consider kyphoplasty. 08/27/17 Mrs. Reynolds continues to have excessive somnolence/nausea with morphine, discontinued and will try low-dose IV Dilaudid if IV medications needed. Have again recommended that she use scheduled [place] to try to maintain some basal pain control. If doesn't tolerate [place] could alternately try Percocet. Formal MRI report available and confirms acute L3 endplate compression fracture- have tentatively scheduled vertebral plasty for tomorrow. Antiemetics available as needed. Blood pressure persistently elevated, no formal orthostatics available but blood pressure does not drop sitting. Low-dose amlodipine initiated.
[2017-08-28] MEDS: HYDRALAZINE 20 MG/ML INJECTION IVP PRN ×2 (00:07→04:21)
[2017-08-28] MEDS: HYDROCODONE/APAP 5mg/325mg TABLET PO PRN ×2 (00:35→13:02)
[2017-08-28] MEDS: HYDROMORPHONE 2 MG/ML INJECTION IVP PRN (04:22)
[2017-08-28] MEDS: LEVOTHYROXINE 100 MCG TABLET PO SCH (05:39)
[2017-08-28] MEDS: OMEPRAZOLE 20 MG CAPSULE PO SCH (05:40)
[2017-08-28] MEDS: SENNA + DOCUSATE TABLET PO SCH ×2 (09:00→20:51)
[2017-08-28] MEDS: LACTOBACILLUS (15B cfu) CAPSULE PO SCH (09:17)
[2017-08-28] MEDS: HYDROCODONE/APAP 5mg/325mg TABLET PO SCH ×2 (09:17→15:00)
[2017-08-28] MEDS: CRANBERRY FRUIT EXTRACT 200 MG PO SCH (09:17)
[2017-08-28] MEDS: MELOXICAM 15 MG TABLET PO SCH (09:17)
[2017-08-28] MEDS: FEXOFENADINE 180 MG TABLET PO SCH ×2 (09:17→12:57)
[2017-08-28] MEDS: POLYETHYL GLYCOL 3350 17gm PACKET PO SCH (09:18)
[2017-08-28] MEDS: MULTI-VITAMIN PLAIN TABLET PO SCH ×2 (09:18→12:58)
[2017-08-28] MEDS: SERTRALINE 50 MG TABLET PO SCH ×2 (09:18→12:35)
[2017-08-28] MEDS ORDERED: CEFAZOLIN 1 G INJECTION ONE (10:19)
[2017-08-28] MEDS ORDERED: LIDOCAINE 1% (10mg/ml) 30ml SDV INJ ONE (10:20)
[2017-08-28] MEDS ORDERED: STERILE WATER FOR INJ 20ML 20 ML ONE (10:20)
[2017-08-28] MEDS ORDERED: FentaNYL 100 MCG/2 ML INJECTION ONE (10:37)
[2017-08-28] MEDS ORDERED: MIDAZOLAM 2mg/2ml INJECTION ONE (10:37)
[2017-08-28] MEDS ORDERED: SALINE FLUSH 10ml SYRINGE ONE (10:38)
[2017-08-28] MEDS: SILVER SULFADIAZINE 1% CREAM 25 GM TOP SCH (11:00)
--- NOTE | 2017-08-28 12:07 | CT Scan Report ---
EXAM: CT limited,localized follow-up . Limited CT through the L3 vertebral body with coronal and sagittal reformations. LOCATION OF DICTATION: [facility] [place]. HISTORY: post Vertebroplasty of L3. COMPARISON: 08/26/2017 MRI lumbar spine. 08/24/2017 CT abdomen pelvis. [id number] 05/16/2016 lumbar spine radiographs TECHNIQUE: Thin axial sections were obtained through the spinal levels upon which vertebroplasty or kyphoplasty was performed and the level above and below. Then thinner axial sections were reconstructed in sagittal and coronal reformations. The current CT scan was performed using radiation dose-reduction techniques. FINDINGS: The methylmethacrylate bone cement material is seen within the vertebral body in good distribution without extravasation into the spinal canal. There is adequate distribution seen throughout the vertebral body. There is some methylmethacrylate extending into the disc space minimally at the left L2-3 disc space. This is of doubtful clinical significance. Bone cement is seen along the L3 superior endplate fracture line in good distribution. IMPRESSION: Successful vertebroplasty with good distribution of the methylmethacrylate bone cement in the L3 vertebral body. .
[2017-08-28] MEDS: AMLODIPINE 2.5 MG TABLET PO SCH (12:35)
--- NOTE | 2017-08-28 16:20 | Interventional Radiology Rpt ---
EXAM: CA vertebroplasty lumbar singl (Vertebroplasty with Cavity Creation of L3.) LOCATION OF DICTATION: [facility] [place]. COMPARISON: Recent MRIs and CTs were reviewed. HISTORY: L3 compression fracture-acute component DESCRIPTION: Recent relevant studies were reviewed. Risks and benefits were explained to the patient including but not limited to spinal cord injury or spinal canal stenosis, bleeding, infection, injury of adjacent structures, displacement of bone cement into paraspinal vessels and possible emboli into the lung, extravasation of bone cement into the spinal canal. The patient and patient's family understand. Verbal and written consent was obtained. The patient was placed in the prone position. The site of compression fracture deformity was identified counting up from the L5-S1 junction confirming the correct level and also correlating with the recent relevant studies. A single pedicle approach was chosen as the left pedicle margins were not well delineated.The right pedicle was then targeted under fluoroscopic guidance after the patient was prepped and draped in the usual sterile fashion. Local Lidocaine anesthetic was used. The needle was placed to the level of the pedicle and local anesthesia was administered. Lateral view confirmed correct trajectory into the vertebral body. Small skin nabil was made. The 11G needle was then advanced through the pedicle intermittently checking the lateral projection for correct trajectory. The medial wall of the pedicle is never traversed. The needle was then positioned so that the cannula was at the junction of the posterior middle third of the vertebral body. A bone tamp was then used to create a cavity within the vertebral body. Then methylmethacrylate bone cement was then administered through a curved needle. A good result was thought to be achieved. The cannula and needle were removed. CT scan was then obtained. The patient tolerated this procedure well without immediate complications. Fluoroscopy time: Approximately 11minutes. Number of images: 13 Total sedation time: 30 minutes. IMPRESSION: Successful vertebroplasty with cavity creation of the L3 vertebral body. .
--- NOTE | 2017-08-28 19:46 | Progress Note ---
- Date 08/28/17 Subjective: Mrs. Reynolds had vertebroplasty today. She says the pain is about the same. BP is elevated. Nurse reports BP meds being held before the procedure. Nurse also says family prefers patient not get [place]. She says Toradol was requested. Objective Vital signs: Temperature 97.9 F 08/28/17 16:35 Pulse Rate 67 08/28/17 16:35 Respiratory Rate 16 08/28/17 16:35 Blood Pressure 138/65 08/28/17 16:35 Pulse Oximetry 96 08/28/17 16:35 Height/Weight/BMI: Weight 58.4 kg - Additional findings Additional findings: NAD, drowsy response to questions appropriately Conjunctiva clear, no nystagmus present, EOMI Respirations nonlabored, good airflow, breath sounds clear Regular rhythm, S1-S2 Abdomen soft, nontender, bowel sounds present Extremities without edema Flat affect Results - Labs CBC & Chem 7: 08/28/17 03:56 08/26/17 05:43 Assessment and Plan (1) Vertebral fracture Problem details: L3 Current visit: No Status: Acute (2) Recurrent UTI (urinary tract infection) Problem details: Escherichia coli-resistant Cipro, Levaquin, ampicillin, intermediate sensitivity Augmentin Current visit: No Status: Acute (3) Intractable back pain Current visit: Yes Status: Acute Assessment and Plan: Assessment Intractable lower back and left hip pain, acute on chronic. Hypokalemia, present on admission, resolved Escherichia coli UTI, failed outpatient treatment Altered mental status Ambulatory dysfunction with falls Subacute L3 fracture - 08/04/17 with radiographic worsening. Leukocytosis, present on admission, resolved. Old S3 fracture - 06/2017. Osteoarthritis, chronic. Depression Gait instability Generalized debility Vertigo, chronic. Memory loss, chronic. History of C.diff - 06/2017 - resolved. Plan Mrs. Reynolds had a vertebroplasty today. Will encourage activity. She has IV Dilaudid available for breakthrough. She is on Mobic. Will make one dose of Toradol available. Have dc'd scheduled [place]. Patient's blood pressure is better after getting her meds. Will check lab post-procedure. UTI treated. Potassium remained stable. Antiemetics available as needed. Blood pressure persistently elevated, no formal orthostatics available but blood pressure does not drop sitting. Low-dose amlodipine initiated. High-risk medications in use. Nursing provide supplemental history. Hospital Course Summary Disclaimer: The visit summary below is not to be considered part of the above Progress Note. Hospital Course: 08/25/17 13:43 Mrs. Reynolds is an 81 year old female who is admitted under the care of the hospital service for Left hip pain and lower back pain. Maria Del Carmen had a left hip endoprosthesis in July [address] Ruano. Her post op care and early recovery went well. Maria Del Carmen has a history of poor balance and falls which have resulted in previous orthopaedic injuries including a left hip endoprosthesis and L3 compression fracture. Orthopaedics is consulted for further evaluation of her hip and back pain. She notes she has had some recent falls. Her pain is located mainly in her left lumbar back, roughly at the level of the iliac crests, radiating to the left SI joint and anterior medial groin. Her pain is worse with weight bearing, better with laying down and drawing her knees up. She has not noticed a change in peripheral sensation, or change in peripheral motor control, or change in ability to control bowel or bladder. She does have chronic bladder issues. Noteworthy, is that Maria Del Carmen has had some weakness in the left foot for quite some time. This manifests with dorsiflexion of the ankle and when testing her EHL strength. She has not tried any bracing, or back surgery in the past. Her baseline level of ambulation is independent with a walker. Her initial work up has included an abdominal CT which shows cholelithiasis, acute on chronic L3 compression fracture. The left hip on the CT is incompletely visualized, although visualized portions do not show fracture or dislocation. We have also have obtained an AP pelvis and lateral left hip and compared the films with previous post op X-rays taken in the orthopaedic clinic. Their is no evidence of stem subsidence or acute fracture. Assessment Intractable lower back and left hip pain, acute on chronic. Hypokalemia, present on admission, acute. Leukocytosis, present on admission, resolved. Subacute L3 fracture - 08/04/17. Subacute S3 fracture - 06/2017. Osteoarthritis, chronic. Depression, chronic. Gait instability, chronic. Generalized debility, chronic. History of frequent falls, chronic. Vertigo, chronic. Memory loss, chronic. History of C.diff - 06/2017 - resolved. Plan-08/25/17 (Admission) Admit to observation status under the care of Dr. St. Initial labs on admission revealed leukocytosis (11.3) resolved with IV bolus. Continue to monitor trends. Significant tenderness with movement and palpation of left hip. Repeat left hip x-ray today showed no acute fractures or changes. Dr. Ruano consulted and expected to perform joint injection of pain relief. Appreciate Dr. Ruano's time and expertise. Patient also being evaluated for possible vertebroplasty on . Continue pain control with [place], currently maintaining pain around 6/10 without movement. Morphine PRN. Encourage bowel motivation as needed. Recent recurrent UTI secondary to E. coli found on 08/21. Patient was started on macrobid and flagyl given the drug resistance and the patient's history of c.diff in 06/2017. Culture and sensitivity discussed with Dr. Salcedo who recommended discontinuation of the macrobid and recommended fosfomycin x 1 dose. Prophylactic treatment with Flagyl was no recommended at this time. Repeat UA in ED was unremarkable and patient denies current urinary symptoms and remains afebrile. She was given a dose of Rocephin 1g in ED prior to admission for coverage of urinary pathogens given her pain and leukocytosis. Hypokalemia noted on admission. KCl 20 mEq given x 1 dose. Repeat CBC and BMP in AM to monitor blood counts, electrolytes and renal function. Blood pressure noted on admission at 178/72. She denies a history of hypertension. Will discuss treatment recommendations with Dr. St given the patient's history of dizziness and possible syncopal episodes in the past. Patient will likely need inpatient rehabilitation and placement. Appreciate the assistance of social work. Upon discharge, patient's care will be returned to her PCP, Dr. Box. 08/26/17 Pain improved today after PSIS steroid injection yesterday. MRI lumbar spine done this am - report pending. Continue Mobic, [place] PRN. Labs reviewed - WBC normal, hgb normal, platelets still high but trending down; BMP unremarkable and hypokalemia has been corrected. Eval by PT/OT yesterday - recommending IP PT and skilled OT. Per ortho - LSO for comfort, consider kyphoplasty. 08/27/17 Mrs. Reynolds continues to have excessive somnolence/nausea with morphine, discontinued and will try low-dose IV Dilaudid if IV medications needed. Have again recommended that she use scheduled [place] to try to maintain some basal pain control. If doesn't tolerate [place] could alternately try Percocet. Formal MRI report available and confirms acute L3 endplate compression fracture- have tentatively scheduled vertebral plasty for tomorrow. Antiemetics available as needed. Blood pressure persistently elevated, no formal orthostatics available but blood pressure does not drop sitting. Low-dose amlodipine initiated. 08/28/17 19:47 Mrs. Reynolds had a vertebroplasty today. Will encourage activity. She has IV Dilaudid available for breakthrough. She is on Mobic. Will make one dose of Toradol available. Have dc'd scheduled [place]. Patient's blood pressure is better after getting her meds. Will check lab post-procedure. UTI treated. Potassium remained stable. Antiemetics available as needed. Blood pressure persistently elevated, no formal orthostatics available but blood pressure does not drop sitting. Low-dose amlodipine initiated. High-risk medications in use. Nursing provide supplemental history.
[2017-08-28] MEDS ORDERED: KETOROLAC 15 MG/ML INJECTION IVP PRN (19:51)
[2017-08-28] MEDS: SALINE FLUSH 10ml SYRINGE IV PRN ×2 (20:39→23:50)
[2017-08-28] MEDS: ACETAMINOPHEN 500 MG TABLET PO PRN (23:51)
[2017-08-29] MEDS: HYDROMORPHONE 2 MG/ML INJECTION IVP PRN (00:40)
[2017-08-29] MEDS: SALINE FLUSH 10ml SYRINGE IV PRN (00:41)
[2017-08-29] MEDS: LEVOTHYROXINE 100 MCG TABLET PO SCH (06:20)
[2017-08-29] MEDS: OMEPRAZOLE 20 MG CAPSULE PO SCH (06:20)
--- NOTE | 2017-08-29 08:19 | Progress Note ---
- Date 08/29/17 Subjective: Patient's son reports patient is weaker and this is a change for her from when she came in. He states she can barely feed herself and has significant upper extremity weakness. He wonders if she might have PMR with her continued complaint of "hurting everywhere." She's had a noticeable weakness in the R arm which he wonders if this could have been a ministroke. Objective Vital signs: Temperature 97.5 F 08/29/17 08:00 Pulse Rate 69 08/29/17 08:00 Respiratory Rate 18 08/29/17 08:00 Blood Pressure 135/73 08/29/17 08:00 Pulse Oximetry 94 08/29/17 08:00 Height/Weight/BMI: Weight 58.4 kg Results - Labs CBC & Chem 7: 08/29/17 04:00 08/29/17 04:00 Assessment and Plan (1) Vertebral fracture Problem details: L3 Current visit: No Status: Acute (2) Recurrent UTI (urinary tract infection) Problem details: Escherichia coli-resistant Cipro, Levaquin, ampicillin, intermediate sensitivity Augmentin Current visit: No Status: Acute (3) Intractable back pain Current visit: Yes Status: Acute Assessment and Plan: Assessment Intractable lower back and left hip pain, acute on chronic. Hypokalemia, present on admission, resolved Escherichia coli UTI, failed outpatient treatment Altered mental status Ambulatory dysfunction with falls Subacute L3 fracture - 08/04/17 with radiographic worsening. Leukocytosis, present on admission, resolved. Old S3 fracture - 06/2017. Osteoarthritis, chronic. Depression Gait instability Generalized debility Vertigo, chronic. Memory loss, chronic. History of C.diff - 06/2017 - resolved. Plan Check ESR and CPK to r/o PMR. Hospital Course Summary Disclaimer: The visit summary below is not to be considered part of the above Progress Note. Hospital Course: 08/25/17 13:43 Mrs. Reynolds is an 81 year old female who is admitted under the care of the hospital service for Left hip pain and lower back pain. Maria Del Carmen had a left hip endoprosthesis in July [address] Ruano. Her post op care and early recovery went well. Maria Del Carmen has a history of poor balance and falls which have resulted in previous orthopaedic injuries including a left hip endoprosthesis and L3 compression fracture. Orthopaedics is consulted for further evaluation of her hip and back pain. She notes she has had some recent falls. Her pain is located mainly in her left lumbar back, roughly at the level of the iliac crests, radiating to the left SI joint and anterior medial groin. Her pain is worse with weight bearing, better with laying down and drawing her knees up. She has not noticed a change in peripheral sensation, or change in peripheral motor control, or change in ability to control bowel or bladder. She does have chronic bladder issues. Noteworthy, is that Maria Del Carmen has had some weakness in the left foot for quite some time. This manifests with dorsiflexion of the ankle and when testing her EHL strength. She has not tried any bracing, or back surgery in the past. Her baseline level of ambulation is independent with a walker. Her initial work up has included an abdominal CT which shows cholelithiasis, acute on chronic L3 compression fracture. The left hip on the CT is incompletely visualized, although visualized portions do not show fracture or dislocation. We have also have obtained an AP pelvis and lateral left hip and compared the films with previous post op X-rays taken in the orthopaedic clinic. Their is no evidence of stem subsidence or acute fracture. Assessment Intractable lower back and left hip pain, acute on chronic. Hypokalemia, present on admission, acute. Leukocytosis, present on admission, resolved. Subacute L3 fracture - 08/04/17. Subacute S3 fracture - 06/2017. Osteoarthritis, chronic. Depression, chronic. Gait instability, chronic. Generalized debility, chronic. History of frequent falls, chronic. Vertigo, chronic. Memory loss, chronic. History of C.diff - 06/2017 - resolved. Plan-08/25/17 (Admission) Admit to observation status under the care of Dr. St. Initial labs on admission revealed leukocytosis (11.3) resolved with IV bolus. Continue to monitor trends. Significant tenderness with movement and palpation of left hip. Repeat left hip x-ray today showed no acute fractures or changes. Dr. Ruano consulted and expected to perform joint injection of pain relief. Appreciate Dr. uRano's time and expertise. Patient also being evaluated for possible vertebroplasty on . Continue pain control with [place], currently maintaining pain around 6/10 without movement. Morphine PRN. Encourage bowel motivation as needed. Recent recurrent UTI secondary to E. coli found on 08/21. Patient was started on macrobid and flagyl given the drug resistance and the patient's history of c.diff in 06/2017. Culture and sensitivity discussed with Dr. Salcedo who recommended discontinuation of the macrobid and recommended fosfomycin x 1 dose. Prophylactic treatment with Flagyl was no recommended at this time. Repeat UA in ED was unremarkable and patient denies current urinary symptoms and remains afebrile. She was given a dose of Rocephin 1g in ED prior to admission for coverage of urinary pathogens given her pain and leukocytosis. Hypokalemia noted on admission. KCl 20 mEq given x 1 dose. Repeat CBC and BMP in AM to monitor blood counts, electrolytes and renal function. Blood pressure noted on admission at 178/72. She denies a history of hypertension. Will discuss treatment recommendations with Dr. St given the patient's history of dizziness and possible syncopal episodes in the past. Patient will likely need inpatient rehabilitation and placement. Appreciate the assistance of social work. Upon discharge, patient's care will be returned to her PCP, Dr. Box. 08/26/17 Pain improved today after PSIS steroid injection yesterday. MRI lumbar spine done this am - report pending. Continue Mobic, [place] PRN. Labs reviewed - WBC normal, hgb normal, platelets still high but trending down; BMP unremarkable and hypokalemia has been corrected. Eval by PT/OT yesterday - recommending IP PT and skilled OT. Per ortho - LSO for comfort, consider kyphoplasty. 08/27/17 Mrs. Reynolds continues to have excessive somnolence/nausea with morphine, discontinued and will try low-dose IV Dilaudid if IV medications needed. Have again recommended that she use scheduled [place] to try to maintain some basal pain control. If doesn't tolerate [place] could alternately try Percocet. Formal MRI report available and confirms acute L3 endplate compression fracture- have tentatively scheduled vertebral plasty for tomorrow. Antiemetics available as needed. Blood pressure persistently elevated, no formal orthostatics available but blood pressure does not drop sitting. Low-dose amlodipine initiated. 08/28/17 19:47 Mrs. Reynolds had a vertebroplasty today. Will encourage activity. She has IV Dilaudid available for breakthrough. She is on Mobic. Will make one dose of Toradol available. Have dc'd scheduled [place]. Patient's blood pressure is better after getting her meds. Will check lab post-procedure. UTI treated. Potassium remained stable. Antiemetics available as needed. Blood pressure persistently elevated, no formal orthostatics available but blood pressure does not drop sitting. Low-dose amlodipine initiated. High-risk medications in use. Nursing provide supplemental history.
[2017-08-29] MEDS: CRANBERRY FRUIT EXTRACT 200 MG PO SCH (09:47)
[2017-08-29] MEDS: SENNA + DOCUSATE TABLET PO SCH ×2 (09:49→20:53)
[2017-08-29] MEDS: ACETAMINOPHEN 325 MG TABLET PO SCH ×3 (09:50→17:47)
[2017-08-29] MEDS: MELOXICAM 15 MG TABLET PO SCH (09:51)
[2017-08-29] MEDS: LACTOBACILLUS (15B cfu) CAPSULE PO SCH (09:51)
[2017-08-29] MEDS: POLYETHYL GLYCOL 3350 17gm PACKET PO SCH (09:52)
[2017-08-29] MEDS: MULTI-VITAMIN PLAIN TABLET PO SCH (09:52)
[2017-08-29] MEDS: SERTRALINE 50 MG TABLET PO SCH (09:52)
[2017-08-29] MEDS: AMLODIPINE 2.5 MG TABLET PO SCH (09:52)
[2017-08-29] MEDS: FEXOFENADINE 180 MG TABLET PO SCH (09:52)
[2017-08-29] MEDS: PredniSONE 20 MG TABLET PO SCH (12:59)
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
--- NOTE | 2017-08-29 19:40 | Progress Note ---
- Date 08/29/17 Subjective: Mrs. Reynolds says she has not had as much pain today. Says she has been out of bed some. Patient's son reports patient is weaker and this is a change for her from when she came in. He states she can barely feed herself and has significant upper extremity weakness. He wonders if she might have PMR with her continued complaint of "hurting everywhere." She's had a noticeable weakness in the R arm which he wonders if this could have been a ministroke. Objective Vital signs: Temperature 96.3 F L 08/29/17 16:00 Pulse Rate 75 08/29/17 16:00 Respiratory Rate 18 08/29/17 16:00 Blood Pressure 126/67 08/29/17 16:00 Pulse Oximetry 96 08/29/17 16:00 Height/Weight/BMI: Weight 57 kg - Constitutional Present: well nourished, well developed - Routine HEENT Exam Eye: Present: EOMI ENT: Present: mucous membranes moist, dentition normal - Routine Respiratory Exam Present: CTA bilaterally - Routine Cardiovascular Exam Present: RRR, no murmur - Routine Abdominal Exam Present: soft, normoactive bowel sounds, non distended. Absent: tenderness - Routine Extremities Exam Absent: edema - Routine Skin Exam Present: dry, warm - Routine Neurological Exam Absent: motor deficit for BUE Results - Labs CBC & Chem 7: 08/29/17 04:00 08/29/17 04:00 Assessment and Plan (1) Vertebral fracture Problem details: L3 Current visit: No Status: Acute (2) Recurrent UTI (urinary tract infection) Problem details: Escherichia coli-resistant Cipro, Levaquin, ampicillin, intermediate sensitivity Augmentin Current visit: No Status: Acute (3) Intractable back pain Current visit: Yes Status: Acute Assessment and Plan: Assessment Intractable lower back and left hip pain, acute on chronic. Hypokalemia, present on admission, resolved Escherichia coli UTI, failed outpatient treatment Altered mental status Ambulatory dysfunction with falls Subacute L3 fracture - 08/04/17 with radiographic worsening. Leukocytosis, present on admission, resolved. Old S3 fracture - 06/2017. Osteoarthritis, chronic. Depression Gait instability Generalized debility Vertigo, chronic. Memory loss, chronic. History of C.diff - 06/2017 - resolved. Plan Check ESR and CPK to r/o PMR. Add steroids to see whether that helps with pain. BP better today on low-dose amlodipine. Antiemetics available as needed. Encouraging activity. Plan for SNU tomorrow. Hospital Course Summary Disclaimer: The visit summary below is not to be considered part of the above Progress Note. Hospital Course: 08/25/17 13:43 Mrs. Reynolds is an 81 year old female who is admitted under the care of the hospital service for Left hip pain and lower back pain. Maria Del Carmen had a left hip endoprosthesis in July of [address] Ruano. Her post op care and early recovery went well. Maria Del Carmen has a history of poor balance and falls which have resulted in previous orthopaedic injuries including a left hip endoprosthesis and L3 compression fracture. Orthopaedics is consulted for further evaluation of her hip and back pain. She notes she has had some recent falls. Her pain is located mainly in her left lumbar back, roughly at the level of the iliac crests, radiating to the left SI joint and anterior medial groin. Her pain is worse with weight bearing, better with laying down and drawing her knees up. She has not noticed a change in peripheral sensation, or change in peripheral motor control, or change in ability to control bowel or bladder. She does have chronic bladder issues. Noteworthy, is that Maria Del Carmen has had some weakness in the left foot for quite some time. This manifests with dorsiflexion of the ankle and when testing her EHL strength. She has not tried any bracing, or back surgery in the past. Her baseline level of ambulation is independent with a walker. Her initial work up has included an abdominal CT which shows cholelithiasis, acute on chronic L3 compression fracture. The left hip on the CT is incompletely visualized, although visualized portions do not show fracture or dislocation. We have also have obtained an AP pelvis and lateral left hip and compared the films with previous post op X-rays taken in the orthopaedic clinic. Their is no evidence of stem subsidence or acute fracture. Assessment Intractable lower back and left hip pain, acute on chronic. Hypokalemia, present on admission, acute. Leukocytosis, present on admission, resolved. Subacute L3 fracture - 08/04/17. Subacute S3 fracture - 06/2017. Osteoarthritis, chronic. Depression, chronic. Gait instability, chronic. Generalized debility, chronic. History of frequent falls, chronic. Vertigo, chronic. Memory loss, chronic. History of C.diff - 06/2017 - resolved. Plan-08/25/17 (Admission) Admit to observation status under the care of Dr. St. Initial labs on admission revealed leukocytosis (11.3) resolved with IV bolus. Continue to monitor trends. Significant tenderness with movement and palpation of left hip. Repeat left hip x-ray today showed no acute fractures or changes. Dr. Ruano consulted and expected to perform joint injection of pain relief. Appreciate Dr. Ruano's time and expertise. Patient also being evaluated for possible vertebroplasty on . Continue pain control with [place], currently maintaining pain around 6/10 without movement. Morphine PRN. Encourage bowel motivation as needed. Recent recurrent UTI secondary to E. coli found on 08/21. Patient was started on macrobid and flagyl given the drug resistance and the patient's history of c.diff in 06/2017. Culture and sensitivity discussed with Dr. Salcedo who recommended discontinuation of the macrobid and recommended fosfomycin x 1 dose. Prophylactic treatment with Flagyl was no recommended at this time. Repeat UA in ED was unremarkable and patient denies current urinary symptoms and remains afebrile. She was given a dose of Rocephin 1g in ED prior to admission for coverage of urinary pathogens given her pain and leukocytosis. Hypokalemia noted on admission. KCl 20 mEq given x 1 dose. Repeat CBC and BMP in AM to monitor blood counts, electrolytes and renal function. Blood pressure noted on admission at 178/72. She denies a history of hypertension. Will discuss treatment recommendations with Dr. St given the patient's history of dizziness and possible syncopal episodes in the past. Patient will likely need inpatient rehabilitation and placement. Appreciate the assistance of social work. Upon discharge, patient's care will be returned to her PCP, Dr. Box. 08/26/17 Pain improved today after PSIS steroid injection yesterday. MRI lumbar spine done this am - report pending. Continue Mobic, [place] PRN. Labs reviewed - WBC normal, hgb normal, platelets still high but trending down; BMP unremarkable and hypokalemia has been corrected. Eval by PT/OT yesterday - recommending IP PT and skilled OT. Per ortho - LSO for comfort, consider kyphoplasty. 08/27/17 Mrs. Reynolds continues to have excessive somnolence/nausea with morphine, discontinued and will try low-dose IV Dilaudid if IV medications needed. Have again recommended that she use scheduled [place] to try to maintain some basal pain control. If doesn't tolerate [place] could alternately try Percocet. Formal MRI report available and confirms acute L3 endplate compression fracture- have tentatively scheduled vertebral plasty for tomorrow. Antiemetics available as needed. Blood pressure persistently elevated, no formal orthostatics available but blood pressure does not drop sitting. Low-dose amlodipine initiated. 08/28/17 19:47 Mrs. Reynolds had a vertebroplasty today. Will encourage activity. She has IV Dilaudid available for breakthrough. She is on Mobic. Will make one dose of Toradol available. Have dc'd scheduled [place]. Patient's blood pressure is better after getting her meds. Will check lab post-procedure. UTI treated. Potassium remained stable. Antiemetics available as needed. Blood pressure persistently elevated, no formal orthostatics available but blood pressure does not drop sitting. Low-dose amlodipine initiated. High-risk medications in use. Nursing provide supplemental history. 08/29/17 19:43 Check ESR and CPK to r/o PMR. Add steroids to see whether that helps with pain. BP better today on low-dose amlodipine. Antiemetics available as needed. Encouraging activity. Plan for SNU tomorrow.
[2017-08-30] MEDS: ACETAMINOPHEN 325 MG TABLET PO SCH ×3 (00:13→10:27)
[2017-08-30] MEDS: OMEPRAZOLE 20 MG CAPSULE PO SCH (05:30)
[2017-08-30] MEDS: LEVOTHYROXINE 100 MCG TABLET PO SCH (05:30)
[2017-08-30 07:23] VITALS: BP 134/67; PULSE 67; RESP 16; TEMP 97.5; O2SAT 95
[2017-08-30] MEDS: POLYETHYL GLYCOL 3350 17gm PACKET PO SCH (09:16)
[2017-08-30] MEDS: SENNA + DOCUSATE TABLET PO SCH (09:16)
[2017-08-30] MEDS: CRANBERRY FRUIT EXTRACT 200 MG PO SCH (09:16)
[2017-08-30] MEDS: MELOXICAM 15 MG TABLET PO SCH (09:18)
[2017-08-30] MEDS: FEXOFENADINE 180 MG TABLET PO SCH (09:18)
[2017-08-30] MEDS: LACTOBACILLUS (15B cfu) CAPSULE PO SCH (09:18)
[2017-08-30] MEDS: MULTI-VITAMIN PLAIN TABLET PO SCH (09:19)
[2017-08-30] MEDS: AMLODIPINE 2.5 MG TABLET PO SCH (09:19)
[2017-08-30] MEDS: SERTRALINE 50 MG TABLET PO SCH (09:19)
[2017-08-30] MEDS: PredniSONE 20 MG TABLET PO SCH (09:20)
--- NOTE | 2017-08-30 14:07 | Extended Care Facility Orders ---
Admission Orders Admit to:: [facility] Allergies/Adverse Reactions: Allergies No Known Allergies Allergy (Verified 08/24/17 19:02) Admitting Diagnosis: weakness,hip pain Admitting Physician: Dyllan Hunt IV, MD Attending Physician: Dyllan Hunt IV, MD Code Status: Do Not Resuscitate Anticiapted Length of Stay: 30 days or less Rehab Potential: good Rehab Prognosis: good Diet: 08/28/17 Dinner Regular Diet [DIET] Diet Modifications: Wound/Incision Care: apply silvadene cream to wound and cover with mepilex. Change every 3 days. May use Facility Protocol or Standing Orders: Yes May have flu vaccine: Yes Evaluations/Treatment: PT, OT [facility] Certification: I certify that SNF services are required to be given on an Inpatient basis because of the patients need for halfway care on a continuing basis for the condition(s) for which he/she received inpatient hospital services prior to his/her transfer to the SNF. SNF inpatient care is necessary for the following reasons Indication for [facility]: Wound Care/Assessment, Med Admininistration, Other (PT, OT) - Additional Information In Event of Arrest: Do Not Start CPR Resident is Aware of Diagnosis: Yes Referrals: Dee Box MD [Family Provider] - 1 Week
--- NOTE | 2017-08-30 14:12 | Discharge Summary ---
<Mariia Chávez - Last Filed: 08/30/17 14:08> Discharge Information Date of admission: 08/25/17 13:37 Anticipated date of discharge: 08/30/17 Attending Physician: Dyllan Hunt IV, MD Primary care physician: Dee Box MD Consults: 08/28/17 14:14 Doctor [Physician Consult] [CONS] Routine Consulting Provider: Rosa Ervin Reason For Exam: continued care Ordering Provider has Notified Marine Steamfitter: Yes 08/28/17 14:43 Doctor [Physician Consult] [CONS] Routine Consulting Provider: Sheila Walden Reason For Exam: CONTINUED CARE Ordering Provider has Notified Marine Steamfitter: Yes 08/29/17 IRU Screening [Inpatient Rehab Screening] [CONS] Routine - Discharge Diagnosis (1) Vertebral fracture Status: Acute (2) Recurrent UTI (urinary tract infection) Status: Resolved (3) Intractable back pain Status: Acute Intractable lower back and left hip pain, acute on chronic. Hypokalemia, present on admission, resolved Escherichia coli UTI, failed outpatient treatment Altered mental status Ambulatory dysfunction with falls Subacute L3 fracture - 08/04/17 with radiographic worsening. Leukocytosis, present on admission, resolved. Old S3 fracture - 06/2017. Osteoarthritis, chronic. Depression Gait instability Generalized debility Vertigo, chronic. Memory loss, chronic. History of C.diff - 06/2017 - resolved. - Procedures Procedures: Date of Exam: 08/27/17 Ordering Provider: Pat St MD Type of Exam(s): CA vertebroplasty lumbar singl Reason for Exam(s): L3 compression fracture-acute component EXAM: CA vertebroplasty lumbar singl (Vertebroplasty with Cavity Creation of L3.) [place]CT[place] [facility] [place] COMPARISON: Recent MRIs and CTs were reviewed. HISTORY: L3 compression fracture-acute component DESCRIPTION: Recent relevant studies were reviewed. Risks and benefits were explained to the patient including but not limited to spinal cord injury or spinal canal stenosis, bleeding, infection, injury of adjacent structures, displacement of bone cement into paraspinal vessels and possible emboli into the lung, extravasation of bone cement into the spinal canal. The patient and patient's family understand. Verbal and written consent was obtained. The patient was placed in the prone position. The site of compression fracture deformity was identified counting up from the L5-S1 junction confirming the correct level and also correlating with the recent relevant studies. A single pedicle approach was chosen as the left pedicle margins were not well delineated.The right pedicle was then targeted under fluoroscopic guidance after the patient was prepped and draped in the usual sterile fashion. Local Lidocaine anesthetic was used. The needle was placed to the level of the pedicle and local anesthesia was administered. Lateral view confirmed correct trajectory into the vertebral body. Small skin nabil was made. The 11G needle was then advanced through the pedicle intermittently checking the lateral projection for correct trajectory. The medial wall of the pedicle is never traversed. The needle was then positioned so that the cannula was at the junction of the posterior middle third of the vertebral body. A bone tamp was then used to create a cavity within the vertebral body. Then methylmethacrylate bone cement was then administered through a curved needle. A good result was thought to be achieved. The cannula and needle were removed. CT scan was then obtained. The patient tolerated this procedure well without immediate complications. Fluoroscopy time: Approximately 11minutes. Number of images: 13 Total sedation time: 30 minutes. IMPRESSION: Successful vertebroplasty with cavity creation of the L3 vertebral body. - Laboratory Labs: 08/29/17 04:00 08/29/17 04:00 Laboratory Tests 08/24/17 21:31 Ur Collection Type Urine, clean catch Urine Color Yellow Urine Clarity Clear Urine pH 6.5 Ur Specific Parsons <=1.005 L Urine Protein Negative Urine Glucose (UA) Negative Urine Ketones Negative Urine Occult Blood Negative Urine Nitrate Negative Urine Bilirubin Negative Urine Urobilinogen 0.2 Ur Leukocyte Esterase Negative Laboratory Tests 08/29/17 08/29/17 03:56 03:59 Creatine Kinase 25 L C-Reactive Protein < 5.0 - Radiology Radiology: Date of Exam: 08/26/17 Ordering Provider: Pat St MD Type of Exam(s): MR lumbar spine wo con Reason for Exam(s): left radicular pain, falls, L3 comp fx Indication: left radicular pain, falls, L3 comp fx PROCEDURE: MR lumbar spine wo con: Encounter: Initial Comparison: CT abdomen and pelvis dated August 24, 2017 and MRI lumbar spine dated July 04, 2017 Technique: Multiplanar multisequence MR imaging of the lumbar spine was performed without contrast. Findings: Alignment lumbar spine is stable. Acute L3 superior endplate compression fractures noted with adjacent marrow edema and trace fluid. No additional acute fracture seen. Old mild endplate compression fractures at L1, L2 and L4. Conus medullaris terminates normally at L1. The paraspinal soft tissues show gallstones but no acute findings. Segmental analysis: L1-L2: Central disk protrusion with mild degenerative facet disease and mild central canal narrowing. No significant neural foraminal stenosis. L2-L3: Mild disk bulge with slight retropulsion from the fracture combined to cause moderate central canal stenosis. This is only minimally worsened from the comparison. Mild left neural foraminal stenosis. No right foraminal narrowing L3-L4: Disk height loss with a lateral bulging but no central protrusion or central canal stenosis. Degenerative facet hypertrophy with mild right neural foraminal stenosis. No significant left foraminal narrowing. This is stable. L4-L5: Right lateral osteophytes. Mild degenerative facet change. No significant central canal stenosis. Moderate right and mild to moderate left neural foraminal stenosis. This is unchanged. L5-S1: Mild annular disk bulge and degenerative facet change causing mild central canal narrowing. Mild right and moderate left neural foraminal stenosis. This is stable. Impression: Acute mild superior endplate fracture of L3. Otherwise relatively stable multilevel degenerative changes. Date of Exam: 08/24/17 Ordering Provider: Adan Pickering MD Type of Exam(s): CT abdomen pelvis w con Reason for Exam(s): llq pelvic pain Indication: llq pelvic pain PROCEDURE: CT abdomen pelvis w con: Encounter: Initial Comparison: CT lumbar spine dated August 04, 2017 Technique: Axial CT images were performed through the abdomen and pelvis after the administration of intravenous contrast. Coronal and sagittal two-dimensional reformats. Automated Exposure Control and Iterative Reconstruction dose reducing techniques were utilized. Contrast: Omnipaque 300 90 mL Findings: The lung bases are grossly clear. The liver is unremarkable. Gallbladder is distended with several gallstones present. The spleen with accessory splenule, pancreas and adrenal glands are within normal limits. Areas of cortical loss in the upper the left kidney. Tiny low-attenuation foci are seen in both kidneys which are too small to definitively characterize. No abdominal or pelvic adenopathy. Metallic streak artifact from a left hip replacement. The visualized bladder is grossly normal. No evidence of a bowel obstruction. The appendix is normal. Bone windows show slight worsening in the superior endplate compression fracture of L3. No additional acute osseous findings. Impression: 1. No acute disease process seen in the abdomen or pelvis. 2. Slight worsening in the recent superior endplate compression fracture of L3, with less than 15% height loss. 3. Distended gallbladder with cholelithiasis but no specific CT findings to suggest acute cholecystitis. Date of Exam: 08/25/17 Ordering Provider: Kushal Ruano MD Type of Exam(s): XR pelvis w/ 1 view LT hip Reason for Exam(s): pain Indication: Left hip pain after a recent fall PROCEDURE: XR pelvis w/ 1 view LT hip: Encounter: Initial Comparison: Pelvis radiograph dated August 04, [address] abdomen and pelvis from yesterday Findings: Left hip prosthesis appears intact. No acute fracture or dislocation seen. Moderate degenerative change in the right hip with ring osteophytes on the femoral head. Mild bony demineralization. Impression: No acute osseous abnormality. History of Present Illness HPI: Maria Del Carmen Reynolds is a very pleasant 81-year-old female resident of [place] whom is well known to the hospitalist service. She reports that on 08/04/17 she fell at home. She has a history of chronic dizziness with frequent falls and states that while standing in her closet, she became dizzy and then woke up on the floor. She was seen at [facility] and found to have a possible nondisplaced fracture of the anterosuperior aspect of L3 as well as a laceration to her scalp which required 4 sanam. She was discharged back home to [place]. She has a history of chronic back and hip pain and states that since her fall, her pain has progressively gotten worse. She describes the pain as dull, achy, constant and significantly worse with movement. She denies any radiation of the pain. History of left hip replacement in 2013. She also reports recent dysuria and lower pelvic pain and was found to have an UTI on 08/21/17 by her PCP. UA culture revealed multidrug resistant E. coli. She was started on Macrobid and Flagyl with improvement in her symptoms. She states that her dysuria resolved after the initiation of the macrobid. She has a history of c.diff during a hospitalization in June 2017 but denies any current diarrhea. Due to her increasing, intractable back and left hip pain as well as concern about her current UTI contributing to her pain, she presented to [facility] for further evaluation and treatment. She denies any recent fevers, chills, chest pain, shortness of breath, headache, changes in vision, nausea, vomiting or diarrhea. In the ED, a CT abdomen/pelvis was obtained and revealed no acute disease process with slight worsening in the recent superior endplate compression fracture of L3, with less than 15% height loss. and distention of her gallbladder with cholelithiasis but no findings to suggest acute cholecystitis. Labs were obtained and revealed mild leukocytosis (11.3), thrombocytosis (440) and mild hypokalemia. Repeat UA was unremarkable with no bacteria, WBC or RBC noted. She received Morphine 2mg in addition to [place] with some improvement in her pain. She also received Rocephin 1g for antimicrobial coverage of suspected urinary pathogens. Due to her intractable back and hip pain, she was admitted into observation status under the care of Dr. St for further evaluation and treatment. Objective Vital signs: Temperature 97.5 F 08/30/17 07:21 Pulse Rate 67 08/30/17 07:21 Respiratory Rate 16 08/30/17 07:21 Blood Pressure 134/67 08/30/17 07:21 Pulse Oximetry 95 08/30/17 07:21 Height/Weight/BMI: Weight 57.2 kg - Constitutional Present: no acute distress, well nourished, well developed, thin - Routine HEENT Exam Head: Present: normocephalic, atraumatic ENT: Present: mucous membranes moist - Routine Respiratory Exam Present: CTA bilaterally. Absent: wheezes - Routine Cardiovascular Exam Present: RRR, S2. Absent: murmur - Routine Abdominal Exam Present: soft, normoactive bowel sounds, non distended. Absent: tenderness - Routine Extremities Exam Present: no edema, normal capillary refill - Routine Skin Exam Present: dry, warm - Routine Neurological Exam Present: alert, oriented X3, CN II-XII intact - Routine Lymphatic Exam Lymphatic: Absent: adenopathy - Routine Psychiatric Exam Present: normal affect, cooperative Hospital Course This is a general summary of the patient's hospital course. For more details refer to the complete medical record. Hospital course: 08/25/17 (Admission) Admit to observation status under the care of Dr. St. Initial labs on admission revealed leukocytosis (11.3) resolved with IV bolus. Continue to monitor trends. Significant tenderness with movement and palpation of left hip. Repeat left hip x-ray today showed no acute fractures or changes. Dr. Ruano consulted and expected to perform joint injection of pain relief. Appreciate Dr. Ruano's time and expertise. Patient also being evaluated for possible vertebroplasty on . Continue pain control with [place], currently maintaining pain around 6/10 without movement. Morphine PRN. Encourage bowel motivation as needed. Recent recurrent UTI secondary to E. coli found on 08/21. Patient was started on macrobid and flagyl given the drug resistance and the patient's history of c.diff in 06/2017. Culture and sensitivity discussed with Dr. Salcedo who recommended discontinuation of the macrobid and recommended fosfomycin x 1 dose. Prophylactic treatment with Flagyl was no recommended at this time. Repeat UA in ED was unremarkable and patient denies current urinary symptoms and remains afebrile. She was given a dose of Rocephin 1g in ED prior to admission for coverage of urinary pathogens given her pain and leukocytosis. Hypokalemia noted on admission. KCl 20 mEq given x 1 dose. Repeat CBC and BMP in AM to monitor blood counts, electrolytes and renal function. Blood pressure noted on admission at 178/72. She denies a history of hypertension. Will discuss treatment recommendations with Dr. St given the patient's history of dizziness and possible syncopal episodes in the past. Patient will likely need inpatient rehabilitation and placement. Appreciate the assistance of social work. Upon discharge, patient's care will be returned to her PCP, Dr. Box. 08/26/17 Pain improved today after PSIS steroid injection yesterday. MRI lumbar spine done this am - report pending. Continue Mobic, [place] PRN. Labs reviewed - WBC normal, hgb normal, platelets still high but trending down; BMP unremarkable and hypokalemia has been corrected. Eval by PT/OT yesterday - recommending IP PT and skilled OT. Per ortho - LSO for comfort, consider kyphoplasty. 08/27/17 Mrs. Reynolds continues to have excessive somnolence/nausea with morphine, discontinued and will try low-dose IV Dilaudid if IV medications needed. Have again recommended that she use scheduled [place] to try to maintain some basal pain control. If doesn't tolerate [place] could alternately try Percocet. Formal MRI report available and confirms acute L3 endplate compression fracture- have tentatively scheduled vertebral plasty for tomorrow. Antiemetics available as needed. Blood pressure persistently elevated, no formal orthostatics available but blood pressure does not drop sitting. Low-dose amlodipine initiated. 08/28/17 Mrs. Reynolds had a vertebroplasty today. Will encourage activity. She has IV Dilaudid available for breakthrough. She is on Mobic. Will make one dose of Toradol available. Have dc'd scheduled [place]. Patient's blood pressure is better after getting her meds. Will check lab post-procedure. UTI treated. Potassium remained stable. Antiemetics available as needed. Blood pressure persistently elevated, no formal orthostatics available but blood pressure does not drop sitting. Low-dose amlodipine initiated. High-risk medications in use. Nursing provide supplemental history. 08/29/17 Pt weaker and c/o diffuse pain. Son wonders about PMR. Check CRP and CPK to r/o PMR. Add steroids to see whether that helps with pain. BP better today on low-dose amlodipine. Antiemetics available as needed. Encouraging activity. Plan for SNU tomorrow. Tylenol changed to scheduled dosing as opposed to PRN to avoid narcotic usage as much as possible. 08/30/17 Pt is doing better. She is being discharged to [facility] today. Labs and vitals are stable. Will continue Prednisone for 3 more days (through 09/02/17.) Continue changing Mepilex dressing to burn on back and apply silvadene cream to wound with dressing changes. See PCP, Dr Box, in 1 week. Time spent with patient: discharge greater than 30 minutes DVT Prophylaxis: SCD's Discharge Plan - Discharge Disposition Discharge Date: 08/30/17 Disposition: 03 To SNU Not [facility] (SNF) *Condition: Stable Reason For Visit (Visit label in EMR): weakness,hip pain - Discharge Medications *Discharge Medications: New PEG 3350 17gm PACKET [Miralax] 17 gm PO DAILY packet Senna + Docusate [Senna Plus Tablet] 2 tab PO BID tablet Silver Sulfadiazine 1% Crm [Silvadene] 1 applic TOP Q3D tube predniSONE [Prednisone] 40 mg PO DAILY 3 Days #6 tablet Amlodipine [Norvasc] 2.5 mg PO DAILY tablet Continue Cranberry Fruit Extract [Cranberry] 200 mg PO DAILY Meclizine [Antivert] 12.5 mg PO TID PRN #90 tab PRN Reason: Dizziness Lactobacillus Acidophilus [Digestive Probiotic] 1 each PO DAILY Multivitamin [One Daily Multivitamin] 1 each PO DAILY Levothyroxine Tab [Synthroid] 100 mcg PO ACB #0 Acetaminophen [Acetaminophen Extra Strength] 1,000 mg PO Q4H PRN #0 PRN Reason: PAIN Sertraline HCl 50 mg PO DAILY #0 Omeprazole 20 mg PO ACB #0 cap Fexofenadine [Nelly] 180 mg PO DAILY Meloxicam 15 mg PO DAILY Discontinued MetroNIDAZOLE [Flagyl] 500 mg PO BID Nitrofurantoin Monohyd/M-Cryst [Macrobid 100 mg Capsule] 100 mg PO DAILY - Discharge Packet/Instructions *Diet: regular diet *Activity: as tolerated *Pain Management/Treatment: back brace PRN. Tylenol 500mg routine. *Wound Care: apply silvadene cream to wound and cover with mepilex. Change every 3 days. Additional Instructions: Will continue Prednisone for 3 more days (through 09/02.) *Expected Signs/Symptoms: improvement in pain and strength *Notify Physician if: you have worsening pain or other symptoms *During Business Hours Contact: Nurse at [facility] *After Business Hours Contact: Nurse at [facility] *Pending Lab/Results: No Pending Lab - Referrals/Follow Up *Referrals/Follow Up: Dee Box MD [Family Provider] - 1 Week - Patient Handouts Patient Handouts: Vertebroplasty (GEN), Weakness (GEN), Hip Pain (GEN) - Dismissal Complete Discharge Instructions are:: Complete <Dyllan Hunt IV - Last Filed: 08/30/17 18:01> Discharge Information Date of admission: 08/25/17 13:37 Attending Physician: Dyllan Hunt IV, MD Primary care physician: Dee Box MD Consults: 08/28/17 14:14 Doctor [Physician Consult] [CONS] Routine Consulting Provider: Rosa Ervin Reason For Exam: continued care Ordering Provider has Notified Marine Steamfitter: Yes 08/28/17 14:43 Doctor [Physician Consult] [CONS] Routine Consulting Provider: Sheila Walden Reason For Exam: CONTINUED CARE Ordering Provider has Notified Marine Steamfitter: Yes 08/29/17 IRU Screening [Inpatient Rehab Screening] [CONS] Routine - Discharge Diagnosis (1) Vertebral fracture Status: Acute (2) Recurrent UTI (urinary tract infection) Status: Resolved (3) Intractable back pain Status: Acute - Laboratory Labs: 08/29/17 04:00 08/29/17 04:00 Objective Vital signs: Temperature 97.5 F 08/30/17 07:21 Pulse Rate 67 08/30/17 07:21 Respiratory Rate 16 08/30/17 07:21 Blood Pressure 134/67 08/30/17 07:21 Pulse Oximetry 95 08/30/17 07:21 Height/Weight/BMI: Weight 57.2 kg Hospital Course This is a general summary of the patient's hospital course. For more details refer to the complete medical record. Attestation Narriative - Attestation Attestation Narrative: 08/30/17 17:57 I have independently evaluated and examined this patient. I reviewed the chart, the patient's history, and the AUTO BODY REPAIR TECHNICIAN/PA's documented findings as above. We discussed and formulated the assessment and plan as above with additions as below: Mrs. Reynolds was up to a chair and said she was feeling a bit better. She was looking forward to working on getting stronger. She said her pain is tolerable. Lungs were clear. CV regular. Abdomen benign. Will taper steroids quickly. Patient accepted to SNU and stable for transfer.
== END 2017-08-30 15:25 | DRG 516 ==
LOC: MED 17:42 → ED 17:42 → SUATTDRO 23:18 → MED 23:40 → SUATTDRO 08-25 13:37
PROVIDERS: ADMIT Internal Medicine; ATTEND Hospitalist